=== PATIENT | female | born 1940 | race Caucasian/White ===

== ENCOUNTER → 2017-07-29 09:02 | Outpatient (CLI) | payer MEDICARE, SELFPAY ==
--- NOTE | 2017-08-04 10:36 | PM.PFT.1 ---
Pulmonary Function Test Referral & Results Date Patient Seen: 07/29/17 Requesting provider: Andria Miller Results: The spirometry demonstrates an FVC of 1.98 L which is 67% of predicted. The FEV1 was measured at 1.72 L which is 78% of predicted. The FEV1/FVC ratio was 87 which is 116% of predicted. Following the administration of bronchodilator there was 10% improvement in FEV1 and a 51% improvement in FEF 25-75%. Lung volumes show an SVC of 3.02 L which is 106% of predicted. No diffusing capacity was performed The maximum voluntary ventilation was reduced slightly. Interpretation: This study demonstrates mild obstructive lung disease with some limited evidence of benefit following the administration of bronchodilator particularly in small airway flows as demonstrated by the improvement in the FEF 25-75% number. Lung volumes are normal so no evidence of restrictive lung disease
== END ==
PROVIDERS: Family Provider Family Medicine; PCP Family Medicine; Visit Provider Family Medicine
DX: R06.02 Shortness of breath (principal)
CPT/HCPCS: 94010; 94060; 94726

== ENCOUNTER → 2017-10-21 10:22 | Outpatient (CLI) | payer MEDICARE, SELFPAY ==
[2017-10-21 12:19] LABS: TSH w/ Reflex to FT4 2.66 uIU/mL (0.47-4.68)
== END ==
PROVIDERS: PCP Family Medicine; Visit Provider Family Medicine
DX: R68.89 Other general symptoms and signs (principal)
CPT/HCPCS: 36415; 84443

== ENCOUNTER → 2018-01-11 09:34 | Outpatient (CLI) | payer MEDICARE, SELFPAY ==
--- NOTE | 2018-01-11 | DI.MG.S_ITS ---
BILATERAL DIGITAL SCREENING MAMMOGRAM 3D/2D WITH CAD: 01/11/2018 CLINICAL: Routine screening. Family history of breast cancer. Comparison is made to exams dated: 12/01/2016 mammogram, 11/19/2015 mammogram, and 11/13/2014 mammogram - [facility]. The tissue of both breasts is predominantly fatty. Current study was also evaluated with a Computer Aided Detection (CAD) system. No significant masses, calcifications, or other findings are seen in either breast. There has been no significant interval change. IMPRESSION: NEGATIVE There is no mammographic evidence of malignancy. A 1 year screening mammogram is recommended. This exam was interpreted at Station ID: [id number]. NOTE: For mammograms, a report in lay terms will be sent to the patient. Approximately 15% of breast malignancies will not be visualized mammographically. In the management of a palpable breast mass, a negative mammogram must not discourage biopsy of a clinically suspicious lesion. Electronically Signed By: Sirisha arce/nick:01/11/2018 13:31:52 letter sent: Normal Exam ACR BI-RADS Category 1: Negative 3341F
== END ==
PROVIDERS: PCP Family Medicine; Visit Provider Family Medicine
DX: Z12.31 Encounter for screening mammogram for malignant neoplasm of breast (principal); Z80.3 Family history of malignant neoplasm of breast
CPT/HCPCS: 77063; 77067

== ENCOUNTER → 2018-05-03 18:39 | Outpatient (REF) | payer MEDICARE, SELFPAY | LOC: LAB 18:39 | PROVIDERS: PCP Family Medicine; Visit Provider Dermatology | DX: L28.0 Lichen simplex chronicus (principal); B95.61 Methicillin susceptible Staphylococcus aureus infection as the cause of diseases classified elsewhere | CPT/HCPCS: 87070; 87075; 87205 ==

== ENCOUNTER → 2019-01-12 07:52 | Outpatient (CLI) | payer MEDICARE, SELFPAY ==
--- NOTE | 2019-01-12 | DI.MG.S_ITS ---
BILATERAL DIGITAL SCREENING MAMMOGRAM 3D/2D WITH CAD: 01/12/2019 CLINICAL: Routine screening. Family history of breast cancer. Comparison is made to exams dated: 01/11/2018 mammogram, 12/01/2016 mammogram, 11/19/2015 mammogram, 11/13/2014 mammogram, 10/01/2013 mammogram, and 09/28/2012 mammogram - [facility]. There are scattered fibroglandular elements in both breasts. Current study was also evaluated with a Computer Aided Detection (CAD) system. A linear scar marker overlies the superior right breast. No significant masses, calcifications, or other findings are seen in either breast. There has been no significant interval change. IMPRESSION: NEGATIVE There is no mammographic evidence of malignancy. A 1 year screening mammogram is recommended. This exam was interpreted at Station ID: [id number]. NOTE: For mammograms, a report in lay terms will be sent to the patient. Approximately 15% of breast malignancies will not be visualized mammographically. In the management of a palpable breast mass, a negative mammogram must not discourage biopsy of a clinically suspicious lesion. Electronically Signed By: Royal Buenrostro M.D. ecl/:01/14/2019 19:25:26 letter sent: Normal Exam ACR BI-RADS Category 1: Negative 3341F
== END ==
PROVIDERS: PCP Family Medicine; Visit Provider Family Medicine
DX: Z12.31 Encounter for screening mammogram for malignant neoplasm of breast (principal); Z80.3 Family history of malignant neoplasm of breast
CPT/HCPCS: 77063; 77067

== ENCOUNTER → 2019-10-26 08:31 | Outpatient (CLI) | payer MEDICARE, SELFPAY ==
[2019-10-26 10:14] LABS: Alanine Aminotransferase 15 IU/L (<35); Albumin 4.3 g/dL (3.5-5.0); Albumin Globulin Ratio 1.5 (1.0-2.8); Alkaline Phosphatase 68 U/L (38-126); Aspartate Aminotransferase 27 IU/L (14-36); BUN Creatinine Ratio 19.5 (6-22); Bilirubin Total 0.5 mg/dL (0.2-1.3); Blood Urea Nitrogen 23 mg/dL (7-17); Calcium 9.8 mg/dL (8.4-10.2); Carbon Dioxide 27 mmol/L (22-32); Chloride 103 mmol/L (98-107); Cholesterol 270 mg/dL (140-199); Estimated Glomerular Filt Rate 44.4 mL/min (>60); Globulin 2.8 g/dL (1.7-4.1); Glucose 91 mg/dL (80-110); HDL Cholesterol 66 mg/dL (40-60); HEMOLYSIS < 15 (0-50); LDL Cholesterol Calculated 171 mg/dL (<100); Sodium 137 mmol/L (137-145); Total Protein 7.1 g/dL (6.3-8.2); Triglycerides 167 mg/dL (35-150)
== END ==
PROVIDERS: PCP Family Medicine; Referring Provider Family Medicine; Visit Provider Family Medicine
DX: E66.3 Overweight (principal); E78.5 Hyperlipidemia, unspecified
CPT/HCPCS: 36415; 80053; 80061

== ENCOUNTER → 2019-11-28 09:34 | Outpatient (CLI) | payer MEDICARE, SELFPAY ==
[2019-11-28 11:03] LABS: Blood Urea Nitrogen 16 mg/dL (7-17); Calcium 9.5 mg/dL (8.4-10.2); Carbon Dioxide 29 mmol/L (22-32); Chloride 105 mmol/L (98-107); Estimated Glomerular Filt Rate 49.7 mL/min (>60); Glucose 83 mg/dL (80-110); HEMOLYSIS < 15 (0-50); Potassium 4.9 mmol/L (3.4-5.1); Sodium 140 mmol/L (137-145)
[2019-11-28 14:08] LABS: Creatinine Urine Random 137.8 mg/dL
[2019-11-28 14:13] LABS: Microalbumi Creatinin Ratio Ur 4.3 ug/mg CR (<30); Microalbumin Urine Random 0.6 mg/dL (0-1.6)
== END ==
PROVIDERS: PCP Family Medicine; Referring Provider Family Medicine; Visit Provider Family Medicine
DX: I10 Essential (primary) hypertension (principal)
CPT/HCPCS: 36415; 80048; 82043; 82570

== ENCOUNTER → 2020-01-10 10:39 | Outpatient (CLI) | payer MEDICARE, SELFPAY ==
[2020-01-10 12:56] LABS: BUN Creatinine Ratio 17.5 (6-22); Blood Urea Nitrogen 20 mg/dL (7-17); Calcium 9.6 mg/dL (8.4-10.2); Carbon Dioxide 34 mmol/L (22-32); Chloride 99 mmol/L (98-107); Estimated Glomerular Filt Rate 46.2 mL/min (>60); Glucose 92 mg/dL (80-110); HEMOLYSIS < 15 (0-50); Sodium 137 mmol/L (137-145)
[2020-01-10 13:02] LABS: High Sensitivity CRP - Cardiac 1.6 mg/L (1.0-3.0)
[2020-01-10 15:44] LABS: Creatinine Urine Random 22.3 mg/dL
[2020-01-10 16:03] LABS: Microalbumin Urine Random < 0.6 mg/dL (0-1.6)
== END ==
PROVIDERS: PCP Family Medicine; Referring Provider Family Medicine; Visit Provider Family Medicine
DX: E78.5 Hyperlipidemia, unspecified (principal); I10 Essential (primary) hypertension
CPT/HCPCS: 36415; 80048; 82043; 82570; 86140

== ENCOUNTER → 2020-01-16 10:22 | Outpatient (CLI) | payer MEDICARE, SELFPAY ==
--- NOTE | 2020-01-16 | DI.MG.S_ITS ---
BILATERAL DIGITAL SCREENING MAMMOGRAM 3D/2D WITH CAD: 01/16/2020 CLINICAL: Routine screening. Family history of breast cancer. Comparison is made to exams dated: 01/12/2019 mammogram, 01/11/2018 mammogram, 12/01/2016 mammogram, 11/19/2015 mammogram, and 11/13/2014 mammogram - [facility]. There are scattered fibroglandular elements in both breasts. Current study was also evaluated with a Computer Aided Detection (CAD) system. There is a benign focal asymmetry in the right breast. There also are benign post operative findings in the right breast. No significant masses, calcifications, or other findings are seen in either breast. There has been no significant interval change. IMPRESSION: BENIGN There is no mammographic evidence of malignancy. A 1 year screening mammogram is recommended. This exam was interpreted at Station ID: [id number]. NOTE: For mammograms, a report in lay terms will be sent to the patient. Approximately 15% of breast malignancies will not be visualized mammographically. In the management of a palpable breast mass, a negative mammogram must not discourage biopsy of a clinically suspicious lesion. Electronically Signed By: Ayad gentile/nick:01/16/2020 13:04:47 letter sent: Normal Exam ACR BI-RADS Category 2: Benign Finding(s) 3342F
--- NOTE | 2020-01-16 10:23 | DI.US.S_ITS ---
PROCEDURE: US RENAL COMPLETE INDICATIONS: KIDNEY DISEASE, NEW ONSET TECHNIQUE: Real-time scanning was performed of the kidneys and bladder, with image documentation. COMPARISON: None. FINDINGS: Kidneys: Kidneys are normal in size. Right kidney measures 8.0 cm long; left kidney measures 8.8 cm long. Right renal cortical thickness is 1.4 cm; left renal cortical thickness is 1.4 cm. Renal cortical echotexture is normal. No hydronephrosis or nephrolithiasis. No suspicious solid mass lesions. Bladder: Pre-void bladder volume is 46 mL. Post-void residual is 12 mL. Pre-void images demonstrate no intraluminal masses or stones. On pre-void images, bilateral ureteral jets are noted with color Doppler interrogation. (Of note, ureteral jets may not be detectable in up to 25% of cases due to insufficient differences in specific gravity between ureteral and bladder urine). Miscellaneous: No free pelvic fluid. IMPRESSION: No hydronephrosis or nephrolithiasis is found. Overall renal size is at the lower limits of normal but renal cortical thinning is not present. Underlying medical renal disease is the likely cause for reported renal insufficiency. Dictated by: Moises Fuentes M.D. on 01/16/2020 at 11:24 Approved by: Moises Fuentes M.D. on 01/16/2020 at 11:25
== END ==
PROVIDERS: PCP Family Medicine; Referring Provider Family Medicine; Visit Provider Family Medicine
DX: Z12.31 Encounter for screening mammogram for malignant neoplasm of breast (principal); Z80.3 Family history of malignant neoplasm of breast; I12.9 Hypertensive chronic kidney disease with stage 1 through stage 4 chronic kidney disease, or unspecified chronic kidney disease; N18.30 Chronic kidney disease, stage 3 unspecified
CPT/HCPCS: 76770; 77063; 77067

== ENCOUNTER → 2020-02-04 10:31 | Outpatient (CLI) | payer MEDICARE, SELFPAY ==
[2020-02-04 11:39] LABS: Blood Urea Nitrogen 15 mg/dL (7-17); Calcium 9.2 mg/dL (8.4-10.2); Carbon Dioxide 31 mmol/L (22-32); Chloride 103 mmol/L (98-107); Estimated Glomerular Filt Rate 57.7 mL/min (>60); Glucose 90 mg/dL (80-110); HEMOLYSIS < 15 (0-50); Potassium 4.4 mmol/L (3.4-5.1); Sodium 137 mmol/L (137-145)
[2020-02-04 12:08] LABS: Appearance Urine UA CLEAR; Bilirubin Urine UA NEGATIVE (NEGATIVE); Color Urine UA YELLOW; Glucose Urine UA NEGATIVE (Negative); Ketones Urine UA NEGATIVE (NEGATIVE); Leukocyte Esterase Urine UA TRACE (NEGATIVE); Nitrite Urine UA NEGATIVE (Negative); Occult Blood Urine UA 1+ (Negative); Protein Urine UA NEGATIVE (Negative); Specific Gravity Urine UA 1.015 (1.000-1.035); Urobilinogen Urine UA 0.2 E.U./dL (0.2)
[2020-02-04 13:13] LABS: Bacteria Urine Few (2-10); RBC Urine 0-1/HPF (0-5/HPF); Squamous Epithelial Cell Urine 1-5 /HPF (0-5/HPF); WBC Urine 1-5/HPF (0-5/HPF)
[2020-02-04 13:14] LABS: Culture Indicated Urine Specimen Cultured
== END ==
PROVIDERS: PCP Family Medicine; Referring Provider Family Medicine; Visit Provider Family Medicine
DX: I10 Essential (primary) hypertension (principal); N18.30 Chronic kidney disease, stage 3 unspecified
CPT/HCPCS: 36415; 80048; 81001; 87086

== ENCOUNTER → 2020-04-09 14:26 | Outpatient (CLI) | payer MEDICARE, SELFPAY ==
[2020-04-09 15:48] LABS: BUN Creatinine Ratio 18.1 (6-22); Blood Urea Nitrogen 19 mg/dL (7-17); Calcium 9.3 mg/dL (8.4-10.2); Carbon Dioxide 31 mmol/L (22-32); Chloride 100 mmol/L (98-107); Estimated Glomerular Filt Rate 50.7 mL/min (>60); Glucose 93 mg/dL (80-110); HEMOLYSIS < 15 (0-50); Potassium 4.6 mmol/L (3.4-5.1); Sodium 136 mmol/L (137-145)
== END ==
PROVIDERS: PCP Family Medicine; Referring Provider Family Medicine; Visit Provider Family Medicine
DX: I10 Essential (primary) hypertension (principal); N18.30 Chronic kidney disease, stage 3 unspecified
CPT/HCPCS: 36415; 80048

== ENCOUNTER → 2020-06-24 08:56 | Outpatient (CLI) | payer MEDICARE, SELFPAY ==
[2020-06-24 09:31] LABS: Add Manual Diff / Slide Review NO; Basophils Absolute Auto 0 /uL (0-100); Basophils Percent Auto 0.9 % (0-2); Eosinophils Absolute Auto 100 /uL (0-450); Eosinophils Percent Auto 1.8 % (2-4); Hemoglobin 12.3 g/dL (12.0-16.0); Lymphocytes Absolute Auto 1700 /uL (1100-4500); Lymphocytes Percent Auto 36.8 % (25-40); Mean Corpuscular HGB Conc 32.5 % (30-36); Mean Corpuscular Hemoglobin 31.3 PG (26-34); Mean Corpuscular Volume 96.4 fL (80-100); Monocytes Absolute Auto 500 /uL (0-900); Monocytes Percent Auto 10.7 % (3-14); Neutrophils Absolute Auto 2400 /uL (1500-7000); Neutrophils Percent Auto 49.8 % (50-75); Platelet Count 291 X10^3/uL (150-400); Red Blood Cell Count 3.94 X10^6/uL (4.0-5.2); Red Cell Distribution Width 13.2 % (11.6-14.8); White Blood Cell Count 4.7 X10^3/uL (4.5-11.0)
[2020-06-24 10:01] LABS: Alanine Aminotransferase 14 IU/L (<35); Albumin 3.9 g/dL (3.5-5.0); Albumin Globulin Ratio 1.6 (1.0-2.8); Alkaline Phosphatase 65 U/L (38-126); Aspartate Aminotransferase 25 IU/L (14-36); BUN Creatinine Ratio 18.4 (6-22); Bilirubin Total 0.2 mg/dL (0.2-1.3); Blood Urea Nitrogen 16 mg/dL (7-17); Calcium 9.4 mg/dL (8.4-10.2); Carbon Dioxide 29 mmol/L (22-32); Chloride 105 mmol/L (98-107); Cholesterol 261 mg/dL (140-199); Estimated Glomerular Filt Rate > 60.0 mL/min (>60); Globulin 2.5 g/dL (1.7-4.1); Glucose 97 mg/dL (80-110); HDL Cholesterol 64 mg/dL (40-60); HEMOLYSIS < 15 (0-50); LDL Cholesterol Calculated 170 mg/dL (<100); Potassium 4.1 mmol/L (3.4-5.1); Sodium 140 mmol/L (137-145); Total Protein 6.4 g/dL (6.3-8.2); Triglycerides 133 mg/dL (35-150)
[2020-06-24 16:10] LABS: Microalbumin Urine Random 0.8 mg/dL (0-1.6)
== END ==
PROVIDERS: PCP Physician Assistant; Referring Provider Physician Assistant; Visit Provider Physician Assistant
DX: E78.2 Mixed hyperlipidemia (principal); N18.31 Chronic kidney disease, stage 3a; K21.9 Gastro-esophageal reflux disease without esophagitis
CPT/HCPCS: 36415; 80053; 80061; 82043; 82570; 85025

== ENCOUNTER → 2020-08-21 18:42 | Outpatient (CLI) | payer MEDICARE, SELFPAY | PROVIDERS: PCP Physician Assistant; Visit Provider Physician Assistant | DX: R30.0 Dysuria (principal) | CPT/HCPCS: 87077; 87086; 87186 ==

== ENCOUNTER → 2021-05-12 10:06 | Outpatient (CLI) | payer MEDICARE, SELFPAY ==
--- NOTE | 2021-05-12 | DI.MG.S_ITS ---
BILATERAL DIGITAL SCREENING MAMMOGRAM 3D/2D WITH CAD: 05/12/2021 CLINICAL: Routine screening. Family history of breast cancer. Comparison is made to exams dated: 01/16/2020 mammogram, 01/12/2019 mammogram, 01/11/2018 mammogram, 12/01/2016 mammogram, and 11/19/2015 mammogram - [facility]. There are scattered fibroglandular elements in both breasts. Current study was also evaluated with a Computer Aided Detection (CAD) system. There is a benign focal asymmetry in the right breast. There also are benign post operative findings in the right breast. No significant masses, calcifications, or other findings are seen in either breast. There has been no significant interval change. IMPRESSION: BENIGN There is no mammographic evidence of malignancy. A 1 year screening mammogram is recommended. This exam was interpreted at Station ID: [id number]. NOTE: For mammograms, a report in lay terms will be sent to the patient. Approximately 15% of breast malignancies will not be visualized mammographically. In the management of a palpable breast mass, a negative mammogram must not discourage biopsy of a clinically suspicious lesion. Electronically Signed By: Ayad gentile/nick:05/12/2021 12:32:34 letter sent: Normal Exam ACR BI-RADS Category 2: Benign Finding(s) 3342F
== END ==
PROVIDERS: PCP Physician Assistant; Referring Provider Physician Assistant; Visit Provider Physician Assistant
DX: Z12.31 Encounter for screening mammogram for malignant neoplasm of breast (principal); Z80.3 Family history of malignant neoplasm of breast
CPT/HCPCS: 77063; 77067

== ENCOUNTER → 2021-08-11 14:06 | Outpatient (CLI) | payer MEDICARE, SELFPAY | PROVIDERS: PCP Physician Assistant; Referring Provider Physician Assistant; Visit Provider Physician Assistant | DX: Z78.0 Asymptomatic menopausal state (principal); Z13.820 Encounter for screening for osteoporosis | CPT/HCPCS: 77080 ==

== ENCOUNTER 2022-01-09 13:54 | Emergency (ER) | payer MEDICARE, SELFPAY ==
[2022-01-09] VITALS (8 sets, daily range): BP systolic 142–190; BP diastolic 67–84; PULSE 61–96; RESP 14–59; TEMP 36.9; O2SAT 83–100; BMI 29.2
--- NOTE | 2022-01-09 14:01 | DI.RAD.S_ITS ---
PROCEDURE: XR CHEST 1V INDICATIONS: chest pain TECHNIQUE: One view of the chest was acquired. COMPARISON: [facility], [facility], XR CHEST 1V, 07/16/2017, 12:55. [facility], [facility], CHEST 1 VIEW, 05/05/2016, 12:44. FINDINGS: Surgical changes and devices: None. Lungs and pleura: Lungs are clear. No pleural effusions or pneumothorax. Mediastinum: Mediastinal contours appear normal. Heart size is normal. Bones and chest wall: No suspicious bony lesions. Overlying soft tissues appear unremarkable. IMPRESSION: No acute cardiopulmonary abnormality. Dictated by: Ayad Mckeon M.D. on 01/09/2022 at 13:45 Approved by: Ayad Mckeon M.D. on 01/09/2022 at 13:45
[2022-01-09 14:20] LABS: Add Manual Diff / Slide Review NO; Basophils Absolute Auto 0 /uL (0-100); Basophils Percent Auto 0.8 % (0-2); Eosinophils Absolute Auto 100 /uL (0-450); Eosinophils Percent Auto 1.8 % (2-4); Hematocrit 40.9 % (36-46); Hemoglobin 13.8 g/dL (12.0-16.0); Lymphocytes Absolute Auto 1900 /uL (1100-4500); Lymphocytes Percent Auto 32.5 % (25-40); Mean Corpuscular HGB Conc 33.6 % (30-36); Mean Corpuscular Hemoglobin 31.9 PG (26-34); Mean Corpuscular Volume 94.9 fL (80-100); Monocytes Absolute Auto 500 /uL (0-900); Monocytes Percent Auto 9.3 % (3-14); Neutrophils Absolute Auto 3200 /uL (1500-7000); Neutrophils Percent Auto 55.6 % (50-75); Platelet Count 324 X10^3/uL (150-400); Red Blood Cell Count 4.31 X10^6/uL (4.0-5.2); Red Cell Distribution Width 13.4 % (11.6-14.8); White Blood Cell Count 5.8 X10^3/uL (4.5-11.0)
--- NOTE | 2022-01-09 14:23 | DI.CT.S_ITS ---
PROCEDURE: CT HEAD/BRAIN WO CON INDICATIONS: confusion, difficulty with speech, arm heaviness TECHNIQUE: Noncontrast 4.5 mm thick angled axial sections acquired from the foramen magnum to the vertex, with coronal and sagittal reformats. For radiation dose reduction, the following was used: automated exposure control, adjustment of mA and/or kV according to patient size. COMPARISON: [facility], CT, HEAD WITHOUT CONTRAST, 04/29/2013, 0:05. FINDINGS: Image quality: Excellent. CSF spaces: Basal cisterns are patent. No extra-axial fluid collections. Ventricles are normal in size and shape. Brain: No midline shift. No intracranial masses or hemorrhage. Basal ganglia calcifications. No area of hypodensity in a large vascular distribution to suggest acute infarction. Periventricular hypodensity consistent with chronic microvascular ischemic change. Age-related parenchymal loss. Skull and face: Calvarium and visualized facial bones are intact, without suspicious lesions. Sinuses: Visualized sinuses and mastoids are clear. IMPRESSION: No acute intracranial abnormality. Dictated by: Ayad Mckeon M.D. on 01/09/2022 at 14:13 Approved by: Ayad Mckeon M.D. on 01/09/2022 at 14:16
--- NOTE | 2022-01-09 14:23 | ED.CHESTPAIN ---
HPI - Chest Pain General Chief Complaint: Chest Pain Stated Complaint: dull pain lt arm heaviness in chest Time Seen by Provider: 01/09/22 14:04 Source: patient Mode of arrival: Ambulatory Limitations: no limitations History of Present Illness HPI narrative: 81-year-old female former smoker with history of chronic kidney disease, hypertension, Maki's esophagitis presents with a chief complaint of left-sided chest pressure and dull pain in her arm for the past few days. She is not dizzy nor weak or lightheaded. She denies any shortness of breath or cough. She has no nausea, vomiting or diarrhea. She denies any abdominal pain. She states that she was just resting when she noticed the discomfort come on slowly and states that at its maximum it was about a 1/10 and currently a 0.5. She denies any unexplained fatigue or exercise intolerance. She is had no recent travel, history of blood clot or cancer. She denies any obvious provocation, palliation. She gets migraines and states that she had a headache a few days ago and was having difficulty finding words and had some blurred vision. She would spoken with her primary care provider and has an outpatient CT ordered. These symptoms have been gone for multiple days Related Data Home Medications Medication Instructions Recorded Confirmed CYANOCOBALAMIN (VITAMIN B-12) 1,000 mcg PO QDAY ##0 03/16/11 08/14/21 (Vitamin B-12) [CO Q 10] ##0 05/05/16 08/14/21 [FISH OIL] ##0 05/05/16 08/14/21 Previous Rx's Medication Instructions Recorded albuterol sulfate 90 mcg/actuation 2 inhalation inhalation Q4H PRN 10/24/19 aerosol inhaler shortness of breath #1 device lisinopril 20 mg tablet 20 mg PO DAILY #20 tabs 01/09/22 Allergies Allergy/AdvReac Type Severity Reaction Status Date / Time omeprazole [OMEPRAZOLE] Allergy Severe chest pain Verified 01/09/22 14:05 diclofenac [DICLOFENAC] Allergy Mild chest pain Verified 01/09/22 14:05 metoprolol [METOPROLOL] AdvReac Mild mentally Verified 01/09/22 14:05 disconnected niacin [NIACIN] AdvReac Mild headache Verified 01/09/22 14:05 NSAIDS (Non-Steroidal AdvReac Mild sensitivity Verified 01/09/22 14:05 Anti-Inflamma [NSAIDS (NON-STEROIDAL ANTI-INFLAMMA] pravastatin [PRAVASTATIN] AdvReac Mild leg Verified 01/09/22 14:05 pain/hematuria ranitidine [RANITIDINE] AdvReac Mild mental Verified 01/09/22 14:05 issues Review of Systems Review of Systems Narrative: GENERAL: Denies chills, fatigue, malaise, fever, sweats. HEENT: Denies sinus pain, ear pain, sore throat, difficulty swallowing, dizziness. RESPIRATORY: Denies dyspnea, cough, wheezing, hemoptysis, sputum. CARDIOVASCULAR: See HPI GASTROINTESTINAL: Denies nausea, vomiting, abdominal pain, diarrhea, constipation, melena. : Denies dysuria, frequency, incontinence, hematuria, urinary retention. MUSCULOSKELETAL: denies weakness, joint pain, or bony pain SKIN: Denies rash, skin lesions, or other NEUROLOGIC: See HPI PSYCHIATRIC: No concerning psychosocial issues. 12 point review of systems is negative except for those stated above Patient History Medical History Actinic keratosis (~2006) Anxiety Asymptomatic microscopic hematuria Maki's esophagus (~2004) Blocked tear duct Cataract (~2013) Chickenpox (~1946) Cold sensitivity Degenerative cervical disc History of anemia (~2010) Hx of migraines (~2012) Hyperlipidemia Leg pain Measles (~1946) Microscopic hematuria Mumps (~1946) Muscle tightness Reactive airway disease Right hip flexor tightness (~2014) Smoker Vision abnormalities Vitreous detachment, bilateral Surgical History Anesthesia History of cataract removal with insertion of prosthetic lens (~2013) History of cystoscopy History of endoscopy History of facelift History of thumb surgery (~2009) Status post tubal ligation (~1984) Family History Brother Diabetes mellitus High cholesterol Father Diabetes mellitus High cholesterol Grandfather Heart disease Grandmother Cancer Mother Diabetes mellitus Mental health problem History of breast cancer Social History Smoking Status: Former smoker Tobacco: How many years used: 38 Smoking Status: Former smoker alcohol intake frequency: 0-2 drinks per day Substance Use Type: does not use Exam Narrative Exam Narrative: GENERAL: [81] year old patient appears stated age. Well-developed patient, in mild distress. HEAD: Atraumatic. Normocephalic. EYES: Pupils equal round and reactive. Extraocular motions intact. No scleral icterus. No injection or drainage. ENT: Nose without bleeding, purulent drainage. Throat without erythema, tonsillar hypertrophy or exudate. Airway patent. NECK: Trachea midline. Non tender CARDIOVASCULAR: Regular rate and rhythm without murmurs, gallops, or rubs. RESPIRATORY: Clear to auscultation. Breath sounds equal bilaterally. No wheezes, rales, or rhonchi. GASTROINTESTINAL: Abdomen soft, non-tender, nondistended. EXTREMITIES: No edema or joint tenderness. BACK: Nontender without deformity or crepitance. No flank tenderness. NEURO: AOx3. SKIN: No rash or erythema of visible areas NIH Stroke Scale 1a. LOC: Patient is alert and keenly responsive (0) 1b. LOC Questions: Patient answers both LOC questions accurately (0) 1c. LOC Commands: Patient performs both tasks correctly (0) 2. Best Gaze: Normal (0) 3. Visual: No visual loss (0) 4. Facial palsy: Normal symmetrical movements (0) 5. Motor arm: No drift (0) 6. Motor leg: No drift (0) 7. Limb ataxia: Absent (0) 8. Sensory: Normal (0) 9. Best language: No aphasia; normal (0) 10. Dysarthria: Normal (0) 11. Extinction and inattention: No abnormality (0) NIHSS: 0 Initial Vital Signs Initial Vital Signs: Vital Signs Temperature 98.5 F 01/09/22 14:00 Pulse Rate 96 H 01/09/22 14:00 Respiratory Rate 17 01/09/22 14:00 Blood Pressure 190/84 H 01/09/22 14:00 Pulse Oximetry 97 01/09/22 14:00 Oxygen Delivery Method 01/09/22 14:00 Scores HEART Score Heart Score history: Slightly Suspicious Heart Score EKG: Normal Heart Score Age: > or = 65 years old Heart Score risk factors: No known risk factors Heart Score troponin: < or = to normal limit Heart Score Total: 2 Course Orders Ordered: ED Orders 01/09/22 14:01 XR chest 1V Stat 01/09/22 14:08 Complete Blood Count AUTO DIFF Stat Comprehensive Metabolic Panel Stat Lipase Stat Magnesium Stat NT-proBNP (BNP-Adult 18+) Stat Troponin & CK Cardiac Panel Stat 01/09/22 14:12 EKG-12 Lead Stat 01/09/22 14:15 COVID19 -Nasal RAPID/Pre-Proc Stat 01/09/22 14:23 CT head/brain wo con Stat Discontinued Medications Sodium Chloride (Normal Saline 0.9%) 500 mls @ 1,000 mls/hr IV BOLUS ONE Stop: 01/09/22 14:33 Vital Signs Vital signs: Vital Signs - 8 hr 01/09/22 14:00 01/09/22 14:00 01/09/22 14:01 Temperature 98.5 F Pulse Rate 96 H 95 H Respiratory Rate 17 Blood Pressure 190/84 H 190/84 H Pulse Oximetry 97 98 Oxygen Delivery Method Room Air 01/09/22 14:01 01/09/22 14:30 01/09/22 15:00 Temperature Pulse Rate 92 H 71 71 Respiratory Rate 18 36 H 14 Blood Pressure Pulse Oximetry 99 99 99 Oxygen Delivery Method 01/09/22 15:33 01/09/22 15:38 01/09/22 15:38 Temperature Pulse Rate 61 78 Respiratory Rate 20 22 Blood Pressure 147/71 H Pulse Oximetry 83 L 100 Oxygen Delivery Method MDM - Chest Pain Lab Data Result diagrams: 01/09/22 14:08 01/09/22 14:08 Labs: Lab Results 01/09/22 01/09/22 01/09/22 Range/Units 14:08 14:08 14:15 WBC 5.8 (4.5-11.0) X10^3/uL RBC 4.31 (4.0-5.2) X10^6/uL Hgb 13.8 (12.0-16.0) g/dL Hct 40.9 (36-46) % MCV 94.9 (80-100) fL MCH 31.9 (26-34) PG MCHC 33.6 (30-36) % RDW 13.4 (11.6-14.8) % Plt Count 324 (150-400) X10^3/uL Neut % (Auto) 55.6 (50-75) % Lymph % (Auto) 32.5 (25-40) % [place] % (Auto) 9.3 (3-14) % Eos % (Auto) 1.8 L (2-4) % Baso % (Auto) 0.8 (0-2) % Neut # (Auto) 3200 (6632-6144) /uL Lymph # (Auto) 1900 (5972-1743) /uL [place] # (Auto) 500 (0-900) /uL Eos # (Auto) 100 (0-450) /uL Baso # (Auto) 0 (0-100) /uL Sodium 139 (137-145) mmol/L Potassium 4.4 (3.4-5.1) mmol/L Chloride 105 (98-107) mmol/L Carbon Dioxide 25 (22-32) mmol/L BUN 14 (7-17) mg/dL Creatinine 1.04 (0.52-1.04) mg/dL Estimated GFR 55 L (>60) mL/min BUN/Creatinine Ratio 13.5 (6-22) Glucose 87 (80-110) mg/dL Calcium 9.3 (8.4-10.2) mg/dL Magnesium 2.1 (1.6-2.3) mg/dL Total Bilirubin 0.3 (0.2-1.3) mg/dL AST 27 (14-36) IU/L ALT 20 (<35) IU/L Alkaline Phosphatase 75 (38-126) U/L Total Creatine Kinase 117 (30-135) U/L CK-MB (CK-2) 1.84 (<2.37) ng/mL CK-MB (CK-2) Rel Index 1.6 (1.5-5.0) % Troponin I < 0.012 (0.01-0.034) ng/mL NT-Pro-B Natriuret Pep 227 (<450) pg/mL Total Protein 7.5 (6.3-8.2) g/dL Albumin 4.3 (3.5-5.0) g/dL Globulin 3.2 (1.7-4.1) g/dL Albumin/Globulin Ratio 1.3 (1.0-2.8) Lipase 127 (23-300) U/L SARS-CoV-2 (PCR) Negative (Negative) ECG Data Interpretation: 1551 EKG is normal sinus rhythm rate [68 ] and free of any signs of ischemia or ectopy. No ST segmental elevation or depression. No T wave inversions MDM Narrative Medical decision making narrative: Patient with very reassuring history and physical exam. She has some pressure when blood pressure was in the 190s and symptoms completely resolved as blood pressure approach the 140s. She remained in the 140s for the duration of her visit. She states that she is normally in about the 118s. Heart score low. Patient ambulatory in the department and asymptomatic. Return precautions discussed and questions answered to her apparent satisfaction Discharge Plan Departure Patient Disposition: Home Clinical Impression: Atypical chest pain, Hypertension Instructions: High Blood Pressure, DI for Atypical Chest Pain Activity Restrictions/Additional Instructions: *You have been diagnosed with [atypical chest pain. As we discussed your history and physical exam are reassuring and labs, EKG and imaging would suggest against heart attack. Your symptoms seemed to be linkied to elevated blood pressure. ] *What to do: *Please continue to take your regular medications as directed. [ x] New medication prescriptions sent to your pharmacy: [ [facility]] [ ] New medication written as a paper prescription [ ] No new medications given *Please follow up with your primary care provider in 2-3 days, call for an appointment. Let them know you were seen in the Emergency Department and that we ask that you be seen in follow up. We will electronically transmit a record of today's note if your PCP is in our system *Return to Emergency Department if you should have any new, worsening or concerning symptoms, such as [fever greater than 101 F, shaking chills, worsening pain, persistent vomiting or other bothersome symptoms] Prescriptions: New lisinopril 20 mg tablet 20 mg PO DAILY Qty: 20 0RF No Action CYANOCOBALAMIN (VITAMIN B-12) (Vitamin B-12) 1,000 mcg PO QDAY Qty: 0 [CO Q 10] Qty: 0 [FISH OIL] Qty: 0 albuterol sulfate 90 mcg/actuation HFA aerosol inhaler 2 inhalation INHALATION Q4H PRN (Reason: shortness of breath) Qty: 1 0RF Rx Instructions: administer with spacer Referrals: Zoila Weir PA-C [Primary Care Provider] -
[2022-01-09 14:45] LABS: Alanine Aminotransferase 20 IU/L (<35); Albumin 4.3 g/dL (3.5-5.0); Albumin Globulin Ratio 1.3 (1.0-2.8); Alkaline Phosphatase 75 U/L (38-126); Aspartate Aminotransferase 27 IU/L (14-36); BUN Creatinine Ratio 13.5 (6-22); Bilirubin Total 0.3 mg/dL (0.2-1.3); Blood Urea Nitrogen 14 mg/dL (7-17); Calcium 9.3 mg/dL (8.4-10.2); Carbon Dioxide 25 mmol/L (22-32); Chloride 105 mmol/L (98-107); Creatine Kinase 117 U/L (30-135); Estimated Glomerular Filt Rate 55 mL/min (>60); Globulin 3.2 g/dL (1.7-4.1); Glucose 87 mg/dL (80-110); HEMOLYSIS < 15 (0-50); Lipase 127 U/L (23-300); Magnesium 2.1 mg/dL (1.6-2.3); Potassium 4.4 mmol/L (3.4-5.1); Sodium 139 mmol/L (137-145); Total Protein 7.5 g/dL (6.3-8.2)
[2022-01-09 14:48] LABS: COVID19 -Nasal RAPID Negative (Negative)
[2022-01-09 14:56] LABS: NT-proBNP (BNP-Adult 18+) 227 pg/mL (<450); Troponin I < 0.012 ng/mL (0.01-0.034)
[2022-01-09 15:00] LABS: CKMB % Relative Index 1.6 % (1.5-5.0); Creatine Kinase MB 1.84 ng/mL (<2.37)
== END 2022-01-09 16:03 | disposition home or self-care (01) ==
PROVIDERS: Emergency Provider Emergency Medicine; PCP Physician Assistant
DX: R07.89 Other chest pain (principal); I10 Essential (primary) hypertension; Z20.822 Contact with and (suspected) exposure to COVID-19; R51.9 Headache, unspecified; H53.8 Other visual disturbances
CPT/HCPCS: 36415; 70450; 71045; 80053; 82550; 82553; 83690; 83735; 83880; 84484; 85025; 87635; 93005; 99283; 99284; C9803

== ENCOUNTER → 2022-05-13 10:40 | Outpatient (CLI) | payer MEDICARE, SELFPAY ==
--- NOTE | 2022-05-13 | DI.MG.S_ITS ---
BILATERAL DIGITAL SCREENING MAMMOGRAM 3D/2D WITH CAD: 05/13/2022 CLINICAL: Routine screening. Family history of breast cancer. Comparison is made to exams dated: 05/12/2021 mammogram, 01/16/2020 mammogram, and 01/12/2019 mammogram - [facility]. There are scattered areas of fibroglandular density in both breasts (category b / 25%-50% glandular tissue). Current study was also evaluated with a Computer Aided Detection (CAD) system. There is a benign focal asymmetry in the right breast. There also are benign post operative findings in the right breast. No significant masses, calcifications, or other findings are seen in either breast. There has been no significant interval change. IMPRESSION: BENIGN There is no mammographic evidence of malignancy. A 1 year screening mammogram is recommended. Based on the Tyrer Cuzick model (a risk assessment model) the patient's lifetime risk is 3.0% and her 10 year risk is 0.0%. According to the ACR, ACS, and NCCN guidelines, an annual breast MRI exam along with mammogram is recommended if the patient's lifetime risk is 20% or greater. This exam was interpreted at Station ID: [id number]. NOTE: For mammograms, a report in lay terms will be sent to the patient. Approximately 15% of breast malignancies will not be visualized mammographically. In the management of a palpable breast mass, a negative mammogram must not discourage biopsy of a clinically suspicious lesion. Electronically Signed By: David Carrillo M.D., jr/nick:05/13/2022 15:30:51 letter sent: Normal Exam ACR BI-RADS Category 2: Benign Finding(s) 3342F
== END ==
PROVIDERS: PCP Physician Assistant; Referring Provider Physician Assistant; Visit Provider Physician Assistant
DX: Z12.31 Encounter for screening mammogram for malignant neoplasm of breast (principal)
CPT/HCPCS: 77063; 77067

== ENCOUNTER 2022-09-30 22:26 | Emergency (ER) | payer MEDICARE, SELFPAY ==
[2022-09-30 22:30] VITALS: BP 145/66; PULSE 88; RESP 18; TEMP 36.3; O2SAT 96; BMI 30.2
[2022-09-30 22:35] VITALS: PULSE 92; RESP 20; O2SAT 96
[2022-09-30 22:36] VITALS: BP 145/66; PULSE 91; RESP 22; O2SAT 95
--- NOTE | 2022-09-30 22:47 | DI.CT.S_ITS ---
PROCEDURE: CT HEAD/BRAIN WO CON INDICATIONS: R eye vision changes TECHNIQUE: Noncontrast 4.5 mm thick angled axial sections acquired from the foramen magnum to the vertex, with coronal and sagittal reformats. For radiation dose reduction, the following was used: automated exposure control, adjustment of mA and/or kV according to patient size. COMPARISON: [facility], CT, CT HEAD/BRAIN WO CON, 01/09/2022, 14:28. FINDINGS: Image quality: Excellent. CSF spaces: Basal cisterns are patent. No extra-axial fluid collections. There is mild cerebral volume loss, with resultant ventricular and sulcal prominence. Brain: No intracranial hemorrhage, mass, or mass effect. There are subcortical, periventricular and deep white matter hypodensities consistent with mild chronic small vessel ischemic changes. The glaser-white matter junction appears preserved. There is intracranial internal carotid artery atherosclerosis. Skull and face: Calvarium and visualized facial bones appear intact, without suspicious lesions. Orbits appear within normal limits. Sinuses: Visualized sinuses and mastoids are clear. IMPRESSION: 1. No acute intracranial abnormality. Dictated by: Jermaine Joseph M.D. on 09/30/2022 at 23:27 Approved by: Jermaine Joseph M.D. on 09/30/2022 at 23:40
[2022-09-30 23:00] VITALS: BP 135/63; PULSE 85; RESP 15; O2SAT 95
[2022-09-30 23:30] VITALS: BP 136/65; PULSE 82; RESP 15; O2SAT 96
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
[2022-10-01 00:02] VITALS: O2SAT 96
[2022-10-01 00:04] VITALS: BP 153/72; PULSE 88; O2SAT 97
[2022-10-01] MEDS: PROPARACAINE 0.5% OPHTH SOL 1 DROPS EYE-BOTH (00:18)
== END 2022-10-01 00:37 | disposition home or self-care (01) ==
PROVIDERS: Emergency Provider Emergency Medicine; PCP Physician Assistant
DX: H43.391 Other vitreous opacities, right eye (principal)
CPT/HCPCS: 70450; 99284

== ENCOUNTER → 2022-10-09 11:15 | Outpatient (CLI) | payer MEDICARE, SELFPAY ==
--- NOTE | 2022-10-09 | DI.MRI.S_ITS ---
PROCEDURE: MR LUMBAR SPINE WO CON INDICATIONS: Radiculopathy, lumbar region TECHNIQUE: Noncontrast sagittal T1 spin echo and T2 fast echo, sagittal STIR, and T2 fast spin echo through the lumbar spine. In cases with scoliosis, additional coronal T2 fast spin echo may be performed. COMPARISON: [facility] [place], [place], XR LUMBAR SPINE WITH OLBIQUES PLUS FLEXION EXTENSION, 10/02/2020, 10:16. FINDINGS: Image quality: Excellent. 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 3 mm retrolisthesis of T12 on L1. 3 mm retrolisthesis of L1 on L2. 4 mm anterolisthesis of L4 on L5. Trace anterolisthesis of L5 on S1. Bone Marrow: Marrow is of normal overall signal. No acute vertebral body compression fractures. Spinal Cord: Conus medullaris terminates at the L1 level. Visualized cord demonstrates normal signal and size. Paraspinous Soft Tissues: No paravertebral masses. T11-T12: Normal appearance T12-L1: Severe chronic disc height loss. Retrolisthesis of T12 on L1. Facet and ligament hypertrophy. No significant canal stenosis. Mild bilateral foraminal stenosis. L1-L2: Severe disc height loss. Retrolisthesis of L1 on L2. Associated disc bulge. Facet and ligament hypertrophy. No significant canal stenosis. L2-L3: Moderate disc height loss. Disc bulge. Facet and ligament hypertrophy. Mild canal stenosis. Moderate right foraminal narrowing with mild flattening deformity on the right L2 nerve root. Mild to moderate left foraminal narrowing. L3-L4: Disc bulge. Facet and ligament hypertrophy. Moderate canal stenosis. [id number] bilateral foraminal narrowing. L4-L5: Prominent facet hypertrophy. Disc bulge. Mild anterolisthesis of L4 on L5. [id number] canal stenosis. Mild bilateral foraminal stenosis. L5-S1: Disc bulge. Prominent facet hypertrophy. Moderate canal stenosis. Moderate right foraminal narrowing with mild flattening deformity on the exiting right L5 nerve root. Mild to moderate left foraminal narrowing. IMPRESSION: 1. Multilevel underlying facet arthropathy. 2. Canal stenosis is mild at L2-L3, moderate at L3-L4, [id number] at L4-L5, and moderate at L5-S1. 3. Multilevel foraminal narrowing as described above. Dictated by: Johan Little M.D. on 10/11/2022 at 9:23 Approved by: Johan Little M.D. on 10/11/2022 at 10:14
== END ==
PROVIDERS: PCP Physician Assistant; Referring Provider Physical Medicine & Rehabilitation; Visit Provider Physical Medicine & Rehabilitation
DX: M47.26 Other spondylosis with radiculopathy, lumbar region (principal); M47.27 Other spondylosis with radiculopathy, lumbosacral region; M48.061 Spinal stenosis, lumbar region without neurogenic claudication; M48.07 Spinal stenosis, lumbosacral region
CPT/HCPCS: 72148

== ENCOUNTER → 2022-11-04 11:39 | Outpatient (CLI) | payer MEDICARE, SELFPAY | PROVIDERS: PCP Physician Assistant; Visit Provider Nurse Practitioner Family | DX: N89.8 Other specified noninflammatory disorders of vagina (principal) | CPT/HCPCS: 87086; 87210 ==

== ENCOUNTER → 2023-01-31 11:36 | Outpatient (CLI) | payer MEDICARE, SELFPAY ==
[2023-01-31 13:11] LABS: Add Manual Diff / Slide Review NO; Basophils Absolute Auto 0 /uL (0-100); Basophils Percent Auto 0.8 % (0-2); Eosinophils Absolute Auto 100 /uL (0-450); Eosinophils Percent Auto 1.7 % (2-4); Hematocrit 40.2 % (36-46); Hemoglobin 13.4 g/dL (12.0-16.0); Lymphocytes Absolute Auto 1600 /uL (1100-4500); Lymphocytes Percent Auto 32.4 % (25-40); Mean Corpuscular HGB Conc 33.4 % (30-36); Mean Corpuscular Hemoglobin 31.8 PG (26-34); Mean Corpuscular Volume 95.2 fL (80-100); Monocytes Absolute Auto 500 /uL (0-900); Monocytes Percent Auto 10.1 % (3-14); Neutrophils Absolute Auto 2600 /uL (1500-7000); Platelet Count 305 X10^3/uL (150-400); Red Blood Cell Count 4.23 X10^6/uL (4.0-5.2); Red Cell Distribution Width 13.7 % (11.6-14.8); White Blood Cell Count 4.8 X10^3/uL (4.5-11.0)
[2023-01-31 13:27] LABS: Alanine Aminotransferase 17 IU/L (<35); Albumin Globulin Ratio 1.5 (1.0-2.8); Alkaline Phosphatase 61 U/L (38-126); Aspartate Aminotransferase 25 IU/L (14-36); BUN Creatinine Ratio 15.4 (6-22); Bilirubin Total 0.5 mg/dL (0.2-1.3); Blood Urea Nitrogen 16 mg/dL (7-17); Calcium 10.1 mg/dL (8.4-10.2); Carbon Dioxide 30 mmol/L (22-32); Chloride 104 mmol/L (98-107); Estimated Glomerular Filt Rate 54 mL/min (>60); Globulin 2.6 g/dL (1.7-4.1); Glucose 86 mg/dL (80-110); HEMOLYSIS < 15 (0-50); Sodium 138 mmol/L (137-145); Total Protein 6.6 g/dL (6.3-8.2); Uric Acid 7.1 mg/dL (2.5-6.2)
[2023-01-31 13:31] LABS: High Sensitivity CRP - Cardiac 2.4 mg/L (1.0-3.0)
[2023-01-31 13:40] LABS: Erythrocyte Sedimentation Rate 8 MM/HR (0-20)
[2023-01-31 13:43] LABS: Rheumatoid Factor < 8.6 IU/mL (<12.0)
[2023-02-01 18:18] LABS: SS A Ro Sjogrens Antibody < 0.2 AI (0.0-0.9); SS B La Sjogrens Antibody < 0.2 AI (0.0-0.9)
[2023-02-06 16:59] LABS: ANA Screen, IFA Negative (.)
== END ==
PROVIDERS: PCP Physician Assistant; Referring Provider Ophthalmology; Visit Provider Ophthalmology
DX: M35.00 Sjogren syndrome, unspecified (principal)
CPT/HCPCS: 36415; 80053; 84443; 84550; 85025; 85651; 86038; 86140; 86235; 86430

== ENCOUNTER → 2023-05-21 10:18 | Outpatient (CLI) | payer MEDICARE, SELFPAY ==
--- NOTE | 2023-05-21 10:20 | DI.MG.S_ITS ---
BILATERAL DIGITAL SCREENING MAMMOGRAM 3D/2D WITH CAD: 05/21/2023 CLINICAL: Routine screening. Family history of breast cancer. Comparison is made to exams dated: 05/13/2022 mammogram, 05/12/2021 mammogram, and 01/16/2020 mammogram - [facility]. There are scattered areas of fibroglandular density in both breasts (category b / 25%-50% glandular tissue). Current study was also evaluated with a Computer Aided Detection (CAD) system. There is a benign focal asymmetry in the right breast. There also are benign post operative findings in the right breast. No significant masses, calcifications, or other findings are seen in either breast. There has been no significant interval change. IMPRESSION: BENIGN There is no mammographic evidence of malignancy. A 1 year screening mammogram is recommended. Based on the Tyrer Cuzick model (a risk assessment model) the patient's lifetime risk is 1.4% and her 10 year risk is 0.0%. According to the ACR, ACS, and NCCN guidelines, an annual breast MRI exam along with mammogram is recommended if the patient's lifetime risk is 20% or greater. This exam was interpreted at Station ID: [id number]. NOTE: For mammograms, a report in lay terms will be sent to the patient. Approximately 15% of breast malignancies will not be visualized mammographically. In the management of a palpable breast mass, a negative mammogram must not discourage biopsy of a clinically suspicious lesion. Electronically Signed By: Sirisha arce/nick:05/23/2023 12:23:34 letter sent: Normal Exam ACR BI-RADS Category 2: Benign Finding(s) [id number]
== END ==
PROVIDERS: PCP Physician Assistant; Referring Provider Physician Assistant; Visit Provider Physician Assistant
DX: Z12.31 Encounter for screening mammogram for malignant neoplasm of breast (principal); Z80.3 Family history of malignant neoplasm of breast; R92.323 Mammographic fibroglandular density, bilateral breasts
CPT/HCPCS: 77063; 77067

== ENCOUNTER 2023-06-25 19:12 | Emergency (ER) | payer MEDICARE, SELFPAY ==
[2023-06-25 19:15] VITALS: BP 192/85; PULSE 72; RESP 16; TEMP 36.3; O2SAT 100; BMI 30.2
--- NOTE | 2023-06-25 19:17 | ED.ABDPAIN ---
HPI - Abdominal Pain General Chief Complaint: Abdominal Pain Stated Complaint: Epigastric rib pain Time Seen by Provider: 06/25/23 19:13 History of Present Illness HPI narrative: 83-year-old female presents by EMS from home for bilateral pain in her upper abdomen that wraps around her ribs. Patient had finished eating dinner when her pain began and increase in severity. She states she has had intermittent pain like this in the past that has been able to be improved with Tums and sodium bicarbonate and water, however this time her pain only increased and so she called EMS for evaluation. Related Data Home Medications Medication Instructions Recorded Confirmed CYANOCOBALAMIN (VITAMIN B-12) 1,000 mcg PO QDAY ##0 03/16/11 11/04/22 (Vitamin B-12) [CO Q 10] ##0 05/05/16 11/04/22 [FISH OIL] ##0 05/05/16 11/04/22 Previous Rx's Medication Instructions Recorded albuterol sulfate 90 mcg/actuation 2 inhalation inhalation Q4H PRN 10/24/19 aerosol inhaler shortness of breath #1 device lisinopril 20 mg tablet 20 mg PO DAILY #20 tabs 01/09/22 Allergies Allergy/AdvReac Type Severity Reaction Status Date / Time omeprazole [OMEPRAZOLE] Allergy Severe chest pain Verified 11/04/22 11:36 diclofenac [DICLOFENAC] Allergy Mild chest pain Verified 11/04/22 11:36 metoprolol [METOPROLOL] AdvReac Mild mentally Verified 11/04/22 11:36 disconnected niacin [NIACIN] AdvReac Mild headache Verified 11/04/22 11:36 NSAIDS (Non-Steroidal AdvReac Mild sensitivity Verified 11/04/22 11:36 Anti-Inflamma [NSAIDS (NON-STEROIDAL ANTI-INFLAMMA] pravastatin [PRAVASTATIN] AdvReac Mild leg Verified 11/04/22 11:36 pain/hematuria ranitidine [RANITIDINE] AdvReac Mild mental Verified 11/04/22 11:36 issues Review of Systems Review of Systems Narrative: See HPI Patient History Medical History Smoker Vision abnormalities Muscle tightness Leg pain Right hip flexor tightness (~2014) Actinic keratosis (~2006) Chickenpox (~1946) Measles (~1946) Mumps (~1946) Vitreous detachment, bilateral Cataract (~2013) Microscopic hematuria Cold sensitivity Hyperlipidemia Blocked tear duct Maki's esophagus (~2004) Hx of migraines (~2012) History of anemia (~2010) Reactive airway disease Anxiety Asymptomatic microscopic hematuria Degenerative cervical disc Surgical History Anesthesia History of thumb surgery (~2009) History of endoscopy History of facelift History of cataract removal with insertion of prosthetic lens (~2013) History of cystoscopy Status post tubal ligation (~1984) Family History Brother Diabetes mellitus High cholesterol Father Diabetes mellitus High cholesterol Grandfather Heart disease Grandmother Cancer Mother Diabetes mellitus Mental health problem History of breast cancer Social History Smoking Status: Former smoker Tobacco: How many years used: 38 Smoking Status: Former smoker alcohol intake frequency: 0-2 drinks per day Substance Use Type: does not use Exam Initial Vital Signs Initial Vital Signs: Vital Signs Temperature 97.3 F L 06/25/23 19:15 Pulse Rate 72 06/25/23 19:15 Respiratory Rate 16 06/25/23 19:15 Blood Pressure 192/85 H 06/25/23 19:15 Pulse Oximetry 100 06/25/23 19:15 Oxygen Delivery Method Room Air 06/25/23 19:15 Const: Awake, alert, uncomfortable, in pain Cardiac: regular rate, regular rhythm RESP: unlabored, clear bilaterally, no wheezing GI: Soft, no reproducible tenderness to light or deep palpation Skin: Warm, Dry, intact, no rashes Neuro: AO x3, CN II-XII grossly intact, moves all extremities Course Orders Ordered: Discontinued Medications Al Hydrox/Mg Hydrox/Simethicone (Mag Hydrox/Alum/Simeth 30 Ml Udc) 30 ml PO NOW ONE Stop: 06/25/23 19:23 Last Admin: 06/25/23 19:38 Dose: 30 ml Documented By: KALEIGH Sodium Chloride (Normal Saline 0.9%) 1,000 mls @ 1,000 mls/hr IV BOLUS ONE Stop: 06/25/23 20:15 Last Infusion: 06/25/23 22:07 Dose: Infused Documented By: Admin: 06/25/23 20:50 Dose: 1,000 mls/hr Documented By: STEPHIE Lidocaine HCl (Lidocaine Viscous 2% 15 Ml Solution) 15 ml PO NOW ONE Stop: 06/25/23 19:23 Last Admin: 06/25/23 19:35 Dose: 15 ml Documented By: KALEIGH Morphine Sulfate (Morphine 4 Mg/Ml Inj) 4 mg IV NOW ONE Stop: 06/25/23 19:17 Last Admin: 06/25/23 21:40 Dose: Not Given Documented By: STEPHIE Vital Signs Vital signs: Vital Signs - 8 hr 06/25/23 19:15 06/25/23 20:01 06/25/23 20:27 Temperature 97.3 F L Pulse Rate 72 Respiratory Rate 16 Blood Pressure 192/85 H 179/81 H 141/65 H Pulse Oximetry 100 Oxygen Delivery Method Room Air 06/25/23 20:27 06/25/23 20:30 06/25/23 21:00 Temperature Pulse Rate 80 77 74 Respiratory Rate 18 Blood Pressure Pulse Oximetry 98 100 97 Oxygen Delivery Method MDM - Abdominal Pain Differential Diagnosis Differential diagnosis: Likely abdominal pain, acute appendicitis and calculus of kidney Lab Data 06/25/23 19:26 06/25/23 19:26 Labs: Lab Results 06/25/23 06/25/23 06/25/23 Range/Units 19:26 21:09 21:40 WBC 6.7 (4.5-11.0) X10^3/uL RBC 4.37 (4.0-5.2) X10^6/uL Hgb 13.9 (12.0-16.0) g/dL Hct 42.1 (36-46) % MCV 96.3 (80-100) fL MCH 31.8 (26-34) PG MCHC 33.1 (30-36) % RDW 13.2 (11.6-14.8) % Plt Count 325 (150-400) X10^3/uL Neut % (Auto) 42.7 L (50-75) % Lymph % (Auto) 43.2 H (25-40) % [place] % (Auto) 11.1 (3-14) % Eos % (Auto) 2.2 (2-4) % Baso % (Auto) 0.8 (0-2) % Neut # (Auto) 2900 (3265-0325) /uL Lymph # (Auto) 2900 (3094-8028) /uL [place] # (Auto) 700 (0-900) /uL Eos # (Auto) 100 (0-450) /uL Baso # (Auto) 100 (0-100) /uL Sodium 139 (137-145) mmol/L Potassium 4.0 (3.4-5.1) mmol/L Chloride 104 (98-107) mmol/L Carbon Dioxide 30 (22-32) mmol/L BUN 25 H (7-17) mg/dL Creatinine 0.98 (0.52-1.04) mg/dL Estimated GFR 58 L (>60) mL/min BUN/Creatinine Ratio 25.5 H (6-22) Glucose 102 (80-110) mg/dL Calcium 10.1 (8.4-10.2) mg/dL Total Bilirubin 0.4 (0.2-1.3) mg/dL AST 32 (14-36) IU/L ALT 21 (<35) IU/L Alkaline Phosphatase 60 (38-126) U/L Total Creatine Kinase 81 (30-135) U/L Troponin I < 0.012 < 0.012 (0.01-0.034) ng/mL Total Protein 7.6 (6.3-8.2) g/dL Albumin 4.8 (3.5-5.0) g/dL Globulin 2.8 (1.7-4.1) g/dL Albumin/Globulin Ratio 1.7 (1.0-2.8) Lipase 754 H (23-300) U/L Urine Color Yellow Urine Appearance Clear Urine pH 7.5 (4.5-8.0) Ur Specific [place] 1.010 (1.000-1.035) Urine Protein Negative (Negative) Urine Glucose (UA) Negative (Negative) g/dL Urine Ketones Negative (NEGATIVE) Urine Occult Blood Negative (Negative) Urine Nitrate Negative (Negative) Urine Bilirubin Negative (NEGATIVE) Urine Urobilinogen 0.2 (0.2) E.U./dL Ur Leukocyte Esterase Negative (NEGATIVE) Urine RBC 0-1/hpf (0-5/HPF) Urine WBC None seen (0-5/HPF) Ur Squamous Epith Cells 0-1 /hpf (0-5/HPF) Urine Bacteria None seen (None) Ur Culture Indicated? Cult not indicated Vol Urine Centrifuged 10ml (spun) Imaging Data Chest x-ray: Radiologist's Impression: PROCEDURE: XR CHEST 1V INDICATIONS: MIDEPIGASTRIC/RIB/ABDOMINAL PAIN TECHNIQUE: One view of the chest was acquired. COMPARISON: [facility], CT, CT ABDOMEN PELVIS W CON, 06/25/2023, 19:28. [facility], CR, XR CHEST 1V, 07/16/2017, 12:55. [facility], CR, XR CHEST 1V, 01/09/2022, 13:59. FINDINGS: Surgical changes and devices: None. Lungs and pleura: An incomplete inspiratory result is noted, causing a crowded appearance to the lung markings. No focal infiltrates are seen. No pneumothorax or significant pleural effusions are seen. There is elevation of the right hemidiaphragm Mediastinum: Mediastinal contours appear normal. Heart size is normal. Atherosclerotic calcification of the aortic arch is noted. Bones and chest wall: No suspicious bony lesions. Age-appropriate bony degenerative changes are seen. Overlying soft tissues appear unremarkable. IMPRESSION: Low lung volumes, without an acute abnormality seen by plain film. Elevation of the right hemidiaphragm can be seen. Dictated by: Dixon Andrade M.D. on 06/25/2023 at 18:51 Approved by: Dixon Andrade M.D. on 06/25/2023 at 18:52 CT scan - abdomen/pelvis: Radiologist's Impression: PROCEDURE: CT ABDOMEN PELVIS W CON INDICATIONS: MIDEPIGASTRIC/RIB/ABDOMINAL PAIN TECHNIQUE: After the administration of intravenous contrast, axial sections acquired from the lung bases to the pubic symphysis. Coronal and sagittal reformats were performed. For radiation dose reduction, the following was used: automated exposure control, adjustment of mA and/or kV according to patient size. COMPARISON: [facility], CR, XR CHEST 1V, 06/25/2023, 19:27. [facility], CT, CT-IVP, 08/25/2006, 8:48. FINDINGS: Image quality: Diagnostic. Lower Chest: A small to moderate hiatal hernia is incidentally noted. ABDOMEN: Liver: No solid mass. Simple appearing, water density cysts can be seen, without abnormal enhancement. Gallbladder: No radiopaque gallstones or wall thickening. Biliary ducts: No biliary dilation. Pancreas: No ductal dilation. Spleen: Size is within normal limits. Adrenal Glands: No adrenal nodules. Kidneys and Ureters: No hydronephrosis. No solid mass. No complex renal cystic lesion which requires follow up. Stomach and Bowel: The stomach demonstrates no significant abnormality. No dilated loops of small bowel are seen. The colon is relatively decompressed. No significant colonic abnormality is seen. Colonic diverticulosis is seen, without findings of active diverticulitis. A normal appendix is noted. Peritoneum: No abnormal intraperitoneal fluid. No free air. Ventral Wall: A mild periumbilical hernia is seen, containing fat. Abdominal Nodes: No retroperitoneal or mesenteric adenopathy by size criteria. Vessels: Aorta and inferior vena cava are normal in size. PELVIS: Pelvic Organs: The uterus appears normal for age. No adnexal masses are seen. Bladder: No bladder wall thickening, accounting for underdistention. Pelvic Nodes: No enlarged lymph nodes. Miscellaneous: No inguinal hernias are seen. Bones: No aggressive osseous abnormality. Multiple levels of significant degenerative change can be seen. Mild levoconvex scoliotic curvature is noted. IMPRESSION: No imaging explanation is found for this patient's presenting symptoms. Additional findings: Small to moderate hiatal hernia Simple liver cysts Fat containing periumbilical hernia Diverticulosis, without active diverticulitis Dictated by: Dixon Andrade M.D. on 06/25/2023 at 18:56 Approved by: Dixon Andrade M.D. on 06/25/2023 at 19:00 [facility] Narrative Medical decision making narrative: Uncomfortable but nontoxic patient with a bandlike painful sensation in her upper abdomen after eating. Abdomen is soft, despite the severity of patient's reported pain there is no reproducible tenderness to light or deep palpation. No peritoneal signs. Based on patient's age and the reported severity of pain however we will order CT of the abdomen and pelvis. Morphine and GI cocktail ordered for comfort. Patient refused morphine but reported significant improvement in her pain after GI cocktail. Laboratory work shows no leukocytosis, normal liver enzymes, normal electrolytes, normal kidney function. Patient does have an elevation in her lipase, however CT of the abdomen and pelvis does not show any acute inflammation of the pancreas and patient's abdomen has no reproducible tenderness to palpation. With resolution of symptoms after GI cocktail question if patient maybe has a component of dyspepsia. Patient adivsed of all lab and imaging findings. Recommended 24 hr return if patient does not feel better, and close PCP followup Discharge Plan Departure Patient Disposition: Home Clinical Impression: Dyspepsia, Pain in rib Instructions: DI for Abdominal Pain-Adult Activity Restrictions/Additional Instructions: Your laboratory work and CT imaging today did not show any obvious cause of your symptoms. Your pancreas enzymes were mildly elevated, however on CT scan your pancreas was normal in appearance. There is no evidence of a heart attack and either the blood work or on EKG. I highly recommend following up with your primary care physician if you continue to experience these intermittent abdominal pains. Please come back to the emergency department if your symptoms do not improve or worsen after 24 hours. Prescriptions: No Action CYANOCOBALAMIN (VITAMIN B-12) (Vitamin B-12) 1,000 mcg PO QDAY Qty: 0 [CO Q 10] Qty: 0 [FISH OIL] Qty: 0 albuterol sulfate 90 mcg/actuation HFA aerosol inhaler 2 inhalation INHALATION Q4H PRN (Reason: shortness of breath) Qty: 1 0RF Rx Instructions: administer with spacer lisinopril 20 mg tablet 20 mg PO DAILY Qty: 20 0RF Referrals: Fransisca Chan PA-C [Primary Care Provider] - Stand Alone Forms: Patient Portal/API
[2023-06-25 19:29] LABS: Add Manual Diff / Slide Review NO; Basophils Absolute Auto 100 /uL (0-100); Basophils Percent Auto 0.8 % (0-2); Eosinophils Absolute Auto 100 /uL (0-450); Eosinophils Percent Auto 2.2 % (2-4); Hematocrit 42.1 % (36-46); Hemoglobin 13.9 g/dL (12.0-16.0); Lymphocytes Absolute Auto 2900 /uL (1100-4500); Lymphocytes Percent Auto 43.2 % (25-40); Mean Corpuscular HGB Conc 33.1 % (30-36); Mean Corpuscular Hemoglobin 31.8 PG (26-34); Mean Corpuscular Volume 96.3 fL (80-100); Monocytes Absolute Auto 700 /uL (0-900); Monocytes Percent Auto 11.1 % (3-14); Neutrophils Absolute Auto 2900 /uL (1500-7000); Neutrophils Percent Auto 42.7 % (50-75); Platelet Count 325 X10^3/uL (150-400); Red Blood Cell Count 4.37 X10^6/uL (4.0-5.2); Red Cell Distribution Width 13.2 % (11.6-14.8); White Blood Cell Count 6.7 X10^3/uL (4.5-11.0)
[2023-06-25] MEDS: LIDOCAINE VISCOUS 2% 15 ML SOLUTION PO (19:35)
[2023-06-25] MEDS: MAG HYDROX/ALUM/SIMETH 30 ML UDC PO (19:38)
[2023-06-25 19:41] LABS: Alanine Aminotransferase 21 IU/L (<35); Albumin 4.8 g/dL (3.5-5.0); Albumin Globulin Ratio 1.7 (1.0-2.8); Alkaline Phosphatase 60 U/L (38-126); Aspartate Aminotransferase 32 IU/L (14-36); BUN Creatinine Ratio 25.5 (6-22); Bilirubin Total 0.4 mg/dL (0.2-1.3); Blood Urea Nitrogen 25 mg/dL (7-17); Calcium 10.1 mg/dL (8.4-10.2); Carbon Dioxide 30 mmol/L (22-32); Chloride 104 mmol/L (98-107); Creatine Kinase 81 U/L (30-135); Estimated Glomerular Filt Rate 58 mL/min (>60); Globulin 2.8 g/dL (1.7-4.1); Glucose 102 mg/dL (80-110); HEMOLYSIS < 15 (0-50); Lipase 754 U/L (23-300); Sodium 139 mmol/L (137-145); Total Protein 7.6 g/dL (6.3-8.2)
[2023-06-25 19:53] LABS: Troponin I < 0.012 ng/mL (0.01-0.034)
[2023-06-25 20:01] VITALS: BP 179/81
[2023-06-25 20:27] VITALS: BP 141/65; PULSE 80; O2SAT 98
[2023-06-25 20:30] VITALS: PULSE 77; O2SAT 100
[2023-06-25] MEDS: SODIUM CHLORIDE 0.9% 1,000 ML 1000 ML IV (20:50)
[2023-06-25 21:00] VITALS: PULSE 74; RESP 18; O2SAT 97
[2023-06-25 21:22] LABS: Appearance Urine UA CLEAR; Bilirubin Urine UA NEGATIVE (NEGATIVE); Color Urine UA YELLOW; Glucose Urine UA NEGATIVE (Negative); Ketones Urine UA NEGATIVE (NEGATIVE); Leukocyte Esterase Urine UA NEGATIVE (NEGATIVE); Nitrite Urine UA NEGATIVE (Negative); Occult Blood Urine UA NEGATIVE (Negative); Protein Urine UA NEGATIVE (Negative); Urobilinogen Urine UA 0.2 E.U./dL (0.2)
[2023-06-25 21:23] LABS: pH Urine UA 7.5 (4.5-8.0)
[2023-06-25 21:29] LABS: Bacteria Urine None Seen; Culture Indicated Urine Cult Not Indicated; RBC Urine 0-1/HPF (0-5/HPF); Squamous Epithelial Cell Urine 0-1 /HPF (0-5/HPF); Urine Volume 10mL (spun); WBC Urine None Seen (0-5/HPF)
[2023-06-25 22:11] LABS: Troponin I < 0.012 ng/mL (0.01-0.034)
[2023-06-25 22:37] VITALS: BP 130/60; PULSE 75; RESP 18; O2SAT 97
== END 2023-06-25 22:47 | disposition home or self-care (01) ==
PROVIDERS: Emergency Provider Emergency Medicine; PCP Physician Assistant
DX: R10.13 Epigastric pain (principal); R07.81 Pleurodynia
CPT/HCPCS: 36415; 71045; 74177; 80053; 81001; 82550; 83690; 84484; 85025; 93005; 93010; 96360; 99284; Q9967

== ENCOUNTER 2024-03-10 13:07 | Emergency (ER) | payer MEDICARE, SELFPAY ==
[2024-03-10] VITALS (8 sets, daily range): BP systolic 169–190; BP diastolic 76–83; PULSE 73–88; RESP 15–23; TEMP 36.1–36.6; O2SAT 96–98; BMI 30.2
--- NOTE | 2024-03-10 14:33 | DI.CT.S_ITS ---
PROCEDURE: CT HEAD/BRAIN WO CON INDICATIONS: visual changes this morning, has since resolved TECHNIQUE: Noncontrast 4.5 mm thick angled axial sections acquired from the foramen magnum to the vertex, with coronal and sagittal reformats. For radiation dose reduction, the following was used: automated exposure control, adjustment of mA and/or kV according to patient size. COMPARISON: [facility], CT, CT HEAD/BRAIN WO CON, 09/30/2022, 23:13. FINDINGS: Image quality: Diagnostic CSF spaces: Basal cisterns are patent. Lateral ventricles are symmetric. Volume: Vascular calcifications. Periventricular white matter disease is commonly seen with chronic microangiopathy. Volume loss is present. These findings are [id number] Brain: Basal ganglia mineralization. No acute hemorrhage. No gross loss of glaser-white differentiation. Craniofacial structures: Lens replacements. No significant paranasal sinus opacity. IMPRESSION: No acute intracranial pathology. If there is high concern for parenchymal pathology, consider further evaluation with MRI. Dictated by: Santiago Dacosta M.D. on 03/10/2024 at 15:20 Approved by: Santiago Dacosta M.D. on 03/10/2024 at 15:21
--- NOTE | 2024-03-10 14:33 | DI.CT.S_ITS ---
PROCEDURE: CT ANGIO HEAD AND NECK INDICATIONS: visual changes this morning, has since resolved TECHNIQUE: After the administration of intravenous contrast, 1 mm thick sections acquired from the aortic arch through the [place] of [place]. 3-dimensional qvzaosq-licqepzfq-anspklhgna (MIP) and/or volume rendering reformats were acquired of the central intracranial vasculature and neck separately. For radiation dose reduction, the following was used: automated exposure control, adjustment of mA and/or kV according to patient size. COMPARISON: None. FINDINGS: Image quality: Diagnostic HEAD ANGIOGRAPHY: Anterior circulation: ICAs: Ixyu-[id number] cavernous and petrous calcifications. The ophthalmic arteries appear symmetric, distal portions are too small to characterize on CT. 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 Moderate calcifications of the left subclavian CCAs: No stenosis, occlusion, or aneurysm. ICA origins (by NASCET criteria): Bazd-il-zesahien calcifications and plaque of the right origin and proximal ICA, about 50% narrowing. Mild calcifications at the left origin less than 50% narrowing ICAs: Patent ECAs: Calcifications at the origin on the right Vertebral arteries: Non opacification of the left vertebral artery in the cervical segment. There is only short segment opacification in the proximal segment near the subclavian. Soft tissues: No significant mass, aneurysm, or lymphadenopathy Lung apices: No apical pneumothorax Bones: There are degenerative changes. Probable degenerative anterolisthesis of C3 on C4. IMPRESSION: There is poor opacification of the mid left vertebral artery. Contrast seen in the distal portion of the left vertebral artery is likely from retrograde flow. This may be due to thromboembolic disease versus dissection, acuity indeterminate. There is moderate atherosclerotic disease of the left subclavian. Lower grade atherosclerotic disease is seen elsewhere. No large vessel occlusion otherwise. If there is high concern for infarct, consider MRI. Where visualized, the ophthalmic arteries appear patent Other findings above. Any quantitative measurements of stenosis were performed using NASCET criteria. Dictated by: Santiago Dacosta M.D. on 03/10/2024 at 15:22 Approved by: Santiago Dacosta M.D. on 03/10/2024 at 15:30
[2024-03-10 14:51] LABS: Add Manual Diff / Slide Review NO; Basophils Absolute Auto 100 /uL (0-100); Basophils Percent Auto 1.1 % (0-2); Eosinophils Absolute Auto 100 /uL (0-450); Eosinophils Percent Auto 0.9 % (2-4); Hematocrit 42.3 % (36-46); Hemoglobin 13.8 g/dL (12.0-16.0); Lymphocytes Absolute Auto 1700 /uL (1100-4500); Lymphocytes Percent Auto 28.3 % (25-40); Mean Corpuscular HGB Conc 32.7 % (30-36); Mean Corpuscular Hemoglobin 31.6 PG (26-34); Mean Corpuscular Volume 96.5 fL (80-100); Monocytes Absolute Auto 400 /uL (0-900); Monocytes Percent Auto 7.5 % (3-14); Neutrophils Absolute Auto 3700 /uL (1500-7000); Neutrophils Percent Auto 62.2 % (50-75); Platelet Count 329 X10^3/uL (150-400); Red Blood Cell Count 4.38 X10^6/uL (4.0-5.2); Red Cell Distribution Width 13.5 % (11.6-14.8)
[2024-03-10 15:00] LABS: Alanine Aminotransferase 20 IU/L (<35); Albumin 4.2 g/dL (3.5-5.0); Albumin Globulin Ratio 1.4 (1.0-2.8); Alkaline Phosphatase 63 U/L (38-126); Aspartate Aminotransferase 29 IU/L (14-36); BUN Creatinine Ratio 18.6 (6-22); Bilirubin Total 0.4 mg/dL (0.2-1.3); Blood Urea Nitrogen 21 mg/dL (7-17); Calcium 9.6 mg/dL (8.4-10.2); Carbon Dioxide 28 mmol/L (22-32); Chloride 104 mmol/L (98-107); Estimated Glomerular Filt Rate 49 mL/min (>60); Glucose 96 mg/dL (80-110); HEMOLYSIS < 15 (0-50); Potassium 4.4 mmol/L (3.4-5.1); Sodium 138 mmol/L (137-145); Total Protein 7.2 g/dL (6.3-8.2)
--- NOTE | 2024-03-10 17:04 | PC.NURSE ---
Addendum entered by Monique Jensen R.N. 03/10/24 17:41: Pupils round, equal and reactive. pupils 2mm. Original Note: Pt reports nystagmus this morning around 0930 that resolved within five minutes after putting pressure on her eyes for five minutes. Pt states she felt dizzy and had a mild headache that has somewhat persisted. Pt states she called the help line who stated she should come to the ER. 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 No abnormalities noted with gait. No facial droop or problems with speech noted. GCS 15. Respirations regular and unlabored. Visual haley WNL. Pt states her symptoms have resolved and wonders if her symptoms were caused from migraine, stroke, or inner ear canal issues.
--- NOTE | 2024-03-10 17:26 | ED_ITS ---
HPI - Neuro Symptoms/Deficit General Chief Complaint: Eye Problems Stated Complaint: thinks she is having a stroke Time Seen by Provider: 03/10/24 17:26 Source: patient Mode of arrival: Ambulatory History of Present Illness HPI Narrative: 83-year-old female history of hyperlipidemia, hypertension, CKD comes into the ED from home for evaluation of ?bilateral spontaneous nystagmus states that this started this morning states that it lasts for 5 minutes but completely resolved. States that she has had similar symptoms with history of migraines, is complaining of a slight headache but denies any trauma or falls, denies any actual visual disturbances at this time. No other complaints such chest pain shortness breath fever chills nausea vomiting abdominal pain or any other GI/ symptoms time. On Anticoagulants: No Related Data Home Medications Medication Instructions Recorded Confirmed CYANOCOBALAMIN (VITAMIN B-12) 1,000 mcg PO QDAY ##0 03/16/11 12/19/23 (Vitamin B-12) [CO Q 10] ##0 05/05/16 12/19/23 [FISH OIL] ##0 05/05/16 12/19/23 Previous Rx's Medication Instructions Recorded albuterol sulfate 90 mcg/actuation 2 inhalation inhalation Q4H PRN 10/24/19 aerosol inhaler shortness of breath #1 device lisinopril 20 mg tablet 20 mg PO DAILY #20 tabs 01/09/22 Allergies Allergy/AdvReac Type Severity Reaction Status Date / Time omeprazole [OMEPRAZOLE] Allergy Severe chest pain Verified 03/10/24 13:12 diclofenac [DICLOFENAC] Allergy Mild chest pain Verified 03/10/24 13:12 metoprolol [METOPROLOL] AdvReac Mild mentally Verified 03/10/24 13:12 disconnected niacin [NIACIN] AdvReac Mild headache Verified 03/10/24 13:12 NSAIDS (Non-Steroidal AdvReac Mild sensitivity Verified 03/10/24 13:12 Anti-Inflamma [NSAIDS (NON-STEROIDAL ANTI-INFLAMMA] pravastatin [PRAVASTATIN] AdvReac Mild leg Verified 03/10/24 13:12 pain/hematuria ranitidine [RANITIDINE] AdvReac Mild mental Verified 03/10/24 13:12 issues Review of Systems Hematologic/Lymphatic On Anticoagulants: No Patient History Medical History Smoker Vision abnormalities Muscle tightness Leg pain Right hip flexor tightness (~2014) Actinic keratosis (~2006) Chickenpox (~1946) Measles (~1946) Mumps (~1946) Vitreous detachment, bilateral Cataract (~2013) Microscopic hematuria Cold sensitivity Hyperlipidemia Blocked tear duct Maki's esophagus (~2004) Hx of migraines (~2012) History of anemia (~2010) Reactive airway disease Anxiety Asymptomatic microscopic hematuria Degenerative cervical disc Surgical History Anesthesia History of thumb surgery (~2009) History of endoscopy History of facelift History of cataract removal with insertion of prosthetic lens (~2013) History of cystoscopy Status post tubal ligation (~1984) Family History Brother Diabetes mellitus High cholesterol Father Diabetes mellitus High cholesterol Grandfather Heart disease Grandmother Cancer Mother Diabetes mellitus Mental health problem History of breast cancer Social History Smoking Status: Former smoker Tobacco: How many years used: 38 Smoking Status: Former smoker alcohol intake frequency: 0-2 drinks per day Exam Initial Vital Signs Initial Vital Signs: Vital Signs Temperature 97.8 F 03/10/24 13:12 Pulse Rate 81 03/10/24 13:12 Respiratory Rate 18 03/10/24 13:12 Blood Pressure 174/77 H 03/10/24 13:12 Pulse Oximetry 98 03/10/24 13:12 Oxygen Delivery Method Room Air 03/10/24 13:12 Course Orders Ordered: ED Orders 03/10/24 14:33 CT angio head and neck Stat CT head/brain wo con Stat 03/10/24 14:40 Complete Blood Count AUTO DIFF Stat Comprehensive Metabolic Panel Stat Lipase Stat MAG [Magnesium] Stat Troponin & CK Cardiac Panel Stat 03/10/24 17:47 CXR [XR chest 1V] Stat 03/10/24 18:16 EKG-12 Lead Stat Discontinued Medications Aspirin (Aspirin Ec 325 Mg Tablet) 325 mg PO NOW ONE Stop: 03/10/24 18:16 Last Admin: 03/10/24 18:29 Dose: Not Given Documented By: KEILA Aspirin (Aspirin 81 Mg Chew Tab) 324 mg PO NOW ONE Stop: 03/10/24 18:28 Last Admin: 03/10/24 18:32 Dose: 324 mg Documented By: KEILA Dexamethasone (Dexamethasone 10 Mg/Ml Vial) 10 mg IV NOW ONE Stop: 03/10/24 17:48 Last Admin: 03/10/24 18:14 Dose: Not Given Documented By: KEILA Diphenhydramine HCl (Diphenhydramine 50 Mg/Ml Vial) 25 mg IV NOW ONE Stop: 03/10/24 17:48 Last Admin: 03/10/24 18:14 Dose: Not Given Documented By: KEILA Metoclopramide HCl (Metoclopramide 10 Mg/2 Ml Inj) 10 mg IV NOW ONE Stop: 03/10/24 17:48 Last Admin: 03/10/24 18:14 Dose: Not Given Documented By: KEILA Vital Signs Vital signs: Vital Signs - 8 hr 03/10/24 13:12 Temperature 97.8 F Pulse Rate 81 Respiratory Rate 18 Blood Pressure 174/77 H Pulse Oximetry 98 Oxygen Delivery Method Room Air MDM - Neuro Symptoms/Deficit Lab Data 03/10/24 14:40 03/10/24 14:40 Labs: Lab Results 03/10/24 Range/Units 14:40 WBC 6.0 (4.5-11.0) X10^3/uL RBC 4.38 (4.0-5.2) X10^6/uL Hgb 13.8 (12.0-16.0) g/dL Hct 42.3 (36-46) % MCV 96.5 (80-100) fL MCH 31.6 (26-34) PG MCHC 32.7 (30-36) % RDW 13.5 (11.6-14.8) % Plt Count 329 (150-400) X10^3/uL Neut % (Auto) 62.2 (50-75) % Lymph % (Auto) 28.3 (25-40) % [place] % (Auto) 7.5 (3-14) % Eos % (Auto) 0.9 L (2-4) % Baso % (Auto) 1.1 (0-2) % Neut # (Auto) 3700 (9630-1022) /uL Lymph # (Auto) 1700 (3182-3522) /uL [place] # (Auto) 400 (0-900) /uL Eos # (Auto) 100 (0-450) /uL Baso # (Auto) 100 (0-100) /uL Sodium 138 (137-145) mmol/L Potassium 4.4 (3.4-5.1) mmol/L Chloride 104 (98-107) mmol/L Carbon Dioxide 28 (22-32) mmol/L BUN 21 H (7-17) mg/dL Creatinine 1.13 H (0.52-1.04) mg/dL Estimated GFR 49 L (>60) mL/min BUN/Creatinine Ratio 18.6 (6-22) Glucose 96 (80-110) mg/dL Calcium 9.6 (8.4-10.2) mg/dL Magnesium 2.0 (1.6-2.3) mg/dL Total Bilirubin 0.4 (0.2-1.3) mg/dL AST 29 (14-36) IU/L ALT 20 (<35) IU/L Alkaline Phosphatase 63 (38-126) U/L Total Creatine Kinase 62 (30-135) U/L Troponin I < 0.012 (0.01-0.034) ng/mL Total Protein 7.2 (6.3-8.2) g/dL Albumin 4.2 (3.5-5.0) g/dL Globulin 3.0 (1.7-4.1) g/dL Albumin/Globulin Ratio 1.4 (1.0-2.8) Lipase 115 (23-300) U/L Imaging Data CT scan - head: Radiologist's Impression: [address] [address] [address] Scan Report Signed Patient: Barby Carvalho MR#: [id number] : 1940 Acct:[id number] Age/Sex: 83 / F Date of Service: 03/10/24 Loc: ED Accession Number: [id number] Procedure: CT head/brain wo con Ordering Provider: Kareem Khan D.O. PROCEDURE: CT HEAD/BRAIN WO CON INDICATIONS: visual changes this morning, has since resolved TECHNIQUE: Noncontrast 4.5 mm thick angled axial sections acquired from the foramen magnum to the vertex, with coronal and sagittal reformats. For radiation dose reduction, the following was used: automated exposure control, adjustment of mA and/or kV according to patient size. COMPARISON: [facility], CT, CT HEAD/BRAIN WO CON, 09/30/2022, 23:13. FINDINGS: Image quality: Diagnostic CSF spaces: Basal cisterns are patent. Lateral ventricles are symmetric. Volume: Vascular calcifications. Periventricular white matter disease is commonly seen with chronic microangiopathy. Volume loss is present. These findings are ywbj-og-hmiehakd Brain: Basal ganglia mineralization. No acute hemorrhage. No gross loss of glaser-white differentiation. Craniofacial structures: Lens replacements. No significant paranasal sinus opacity. IMPRESSION: No acute intracranial pathology. If there is high concern for parenchymal pathology, consider further evaluation with MRI. CTA - brain/neck: Radiologist's Impression: [address] [address] [address] Scan Report Signed Patient: Barby Carvalho MR#: [id number] : 1940 Acct:[id number] Age/Sex: 83 / F Date of Service: 03/10/24 Loc: ED Accession Number: [id number] Procedure: CT angio head and neck Ordering Provider: Kareem Khan D.O. PROCEDURE: CT ANGIO HEAD AND NECK INDICATIONS: visual changes this morning, has since resolved TECHNIQUE: After the administration of intravenous contrast, 1 mm thick sections acquired from the aortic arch through the [place] of [place]. 3-dimensional qqphgfw-mnuvokckj-lxosurlynx (MIP) and/or volume rendering reformats were acquired of the central intracranial vasculature and neck separately. For radiation dose reduction, the following was used: automated exposure control, adjustment of mA and/or kV according to patient size. COMPARISON: None. FINDINGS: Image quality: Diagnostic HEAD ANGIOGRAPHY: Anterior circulation: ICAs: Ncmg-ay-kqrbqfqh cavernous and petrous calcifications. The ophthalmic arteries appear symmetric, distal portions are too small to characterize on CT. ACAs: Patent MCAs: Patent AComm: No aneurysm Venous sinuses: Patent where visualized Posterior circulation: Dominance: Right Vertebral arteries: Patent Basilar artery: Patent PComms: No aneurysm parer: Patent NECK ANGIOGRAPHY: Aortic arch and subclavian arteries: Mild calcifications of the arch. Moderate calcifications of the left subclavian CCAs: No stenosis, occlusion, or aneurysm. ICA origins (by NASCET criteria): Rpty-uu-vjjlpceb calcifications and plaque of the right origin and proximal ICA, about 50% narrowing. Mild calcifications at the left origin less than 50% narrowing ICAs: Patent ECAs: Calcifications at the origin on the right Vertebral arteries: Non opacification of the left vertebral artery in the cervical segment. There is only short segment opacification in the proximal segment near the subclavian. Soft tissues: No significant mass, aneurysm, or lymphadenopathy Lung apices: No apical pneumothorax Bones: There are degenerative changes. Probable degenerative anterolisthesis of C3 on C4. IMPRESSION: There is poor opacification of the mid left vertebral artery. Contrast seen in the distal portion of the left vertebral artery is likely from retrograde flow. This may be due to thromboembolic disease versus dissection, acuity indeterminate. There is moderate atherosclerotic disease of the left subclavian. Lower grade atherosclerotic disease is seen elsewhere. No large vessel occlusion otherwise. If there is high concern for infarct, consider MRI. Where visualized, the ophthalmic arteries appear patent Other findings above. Any quantitative measurements of stenosis were performed using NASCET criteria. Chest x-ray: Radiologist's Impression: [address] [address] XRay Report Signed Patient: Barby Carvalho MR#: [id number] : 1940 Acct:[id number] Age/Sex: 83 / F Date of Service: 03/10/24 Loc: ED Accession Number: [id number] Procedure: XR chest 1V Ordering Provider: Kareem Khan D.O. PROCEDURE: XR CHEST 1V INDICATIONS: dizziness TECHNIQUE: One view of the chest was acquired. COMPARISON: [facility], CR, XR CHEST 1V, 06/25/2023, 19:27. [facility], CR, XR CHEST 1V, 01/09/2022, 13:59. FINDINGS: Surgical changes and devices: None. 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 Probable right mid lung scarring or atelectasis. No dense consolidation or pleural effusion. Mediastinum: Unchanged cardiomediastinal contours. Bones and chest wall: Degenerative findings IMPRESSION: Single view radiograph without acute abnormality. Suspected eventration of the right hemidiaphragm as before. ECG Data Interpretation: EKG interpreted ED physician sinus bradycardia at 59 beats per minute QTC 382, normal axis, nonspecific ST changes, no STEMI MDM Narrative Medical decision making narrative: 83-year-old female history of hypertension migraine hyperlipidemia presents for what patient describes as nystagmus. States that this started when she looked at the light when she went outside, states that she felt her eyes moving jqvk-uf-wrnph for about 5 minutes, does have dull headache but denies any visual disturbances. At time of initial evaluation patient with NIH of 0. Patient with troponin negative, lab work unremarkable for any acute findings. Electrolytes normal. 1745: Awaiting call back from [facility] to discuss case with neurology 1800: Discussed case with neurology Jaxon Gupta, personally reviewed images and recommends. States that she does agree with the radiologist reading. States patient is low risk TIA. Recs to start patient on ASA (fulldose) here and daily baby aspirin for home. doesnt need any additional interventions at this time. Recommended follow up outpatient. States can hold off on statin at this time given history of allergy, but does recommend patient should follow up with their primary care doctor to discuss possible alternatives. 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 Disease processes change and evolve, if your symptoms worsen or if you develop any new symptoms that are concerning to you please return for evaluation. Your evaluation today does not show any evidence of any life- threatening/serious illnesses requiring admission to the hospital or surgery. Please follow-up with your doctor for re-evaluation in approximately 1 day. Seek immediate medical attention for any worrisome symptoms. *If you do not have a primary care provider please contact the [facility] Resource line at [phone]. They will ask some questions about your medical history and help get you set up with a doctor in the community. Prescriptions: No Action CYANOCOBALAMIN (VITAMIN B-12) (Vitamin B-12) 1,000 mcg PO QDAY Qty: 0 [CO Q 10] Qty: 0 [FISH OIL] Qty: 0 albuterol sulfate 90 mcg/actuation HFA aerosol inhaler 2 inhalation INHALATION Q4H PRN (Reason: shortness of breath) Qty: 1 0RF Rx Instructions: administer with spacer lisinopril 20 mg tablet 20 mg PO DAILY Qty: 20 0RF Referrals: Sumi Coates MD [Non-Staff] - (Vertebral artery occlusion vs dissection ) Fransisca Chan PA-C [Primary Care Provider] - Stand Alone Forms: Patient Portal/API/Survey
--- NOTE | 2024-03-10 17:47 | DI.RAD.S_ITS ---
PROCEDURE: XR CHEST 1V INDICATIONS: dizziness TECHNIQUE: One view of the chest was acquired. COMPARISON: [facility], CR, XR CHEST 1V, 06/25/2023, 19:27. [facility], CR, XR CHEST 1V, 01/09/2022, 13:59. FINDINGS: Surgical changes and devices: None. 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 Probable right mid lung scarring or atelectasis. No dense consolidation or pleural effusion. Mediastinum: Unchanged cardiomediastinal contours. Bones and chest wall: Degenerative findings IMPRESSION: Single view radiograph without acute abnormality. Suspected eventration of the right hemidiaphragm as before. Dictated by: Santiago Dacosta M.D. on 03/10/2024 at 17:14 Approved by: Santiago Dacosta M.D. on 03/10/2024 at 17:16
[2024-03-10 18:01] LABS: Creatine Kinase 62 U/L (30-135); Lipase 115 U/L (23-300)
[2024-03-10 18:14] LABS: Troponin I < 0.012 ng/mL (0.01-0.034)
[2024-03-10] MEDS: ASPIRIN 81 MG CHEW TAB 324 MG PO (18:32)
--- NOTE | 2024-03-10 18:36 | EKG_ITS ---
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
== END 2024-03-10 19:09 | disposition home or self-care (01) ==
PROVIDERS: Emergency Provider Student in an Organized Health Care Education/Training Program; PCP Physician Assistant
DX: I65.02 Occlusion and stenosis of left vertebral artery (principal); I10 Essential (primary) hypertension; G43.909 Migraine, unspecified, not intractable, without status migrainosus; Z87.891 Personal history of nicotine dependence
CPT/HCPCS: 36415; 70450; 70496; 70498; 71045; 80053; 82550; 83690; 83735; 84484; 85025; 93005; 99284; 99285; Q9967

== ENCOUNTER 2024-03-21 16:25 | Emergency (ER) | payer MEDICARE, SELFPAY ==
[2024-03-21 16:27] VITALS: BP 141/75; PULSE 87; RESP 16; TEMP 36.6; O2SAT 99; BMI 31.3
--- NOTE | 2024-03-21 18:30 | DI.CT.S_ITS ---
PROCEDURE: CT HEAD/BRAIN WO CON INDICATIONS: brief blindness, now resolved TECHNIQUE: Noncontrast 4.5 mm thick angled axial sections acquired from the foramen magnum to the vertex, with coronal and sagittal reformats. For radiation dose reduction, the following was used: automated exposure control, adjustment of mA and/or kV according to patient size. COMPARISON: [facility], CT, CT HEAD/BRAIN WO CON, 03/10/2024, 15:27. FINDINGS: Image quality: Diagnostic CSF spaces: Basal cisterns are patent. Lateral ventricles are symmetric. Volume: Vascular calcifications. Periventricular white matter disease is commonly seen with chronic microangiopathy. Volume loss is present. These findings are mild Brain: Empty sella. No acute intracranial hemorrhage. No gross loss of glaser-white differentiation. Craniofacial structures: No significant paranasal sinus opacity. Lens replacements. IMPRESSION: No acute intracranial abnormality. If there is high concern for parenchymal pathology, consider further evaluation with MRI. Dictated by: Santiago Dacosta M.D. on 03/21/2024 at 19:44 Approved by: Santiago Dacosta M.D. on 03/21/2024 at 19:46
--- NOTE | 2024-03-21 18:33 | ED_ITS ---
HPI - Neuro Symptoms/Deficit General Chief Complaint: Neuro Symptoms/Deficit Stated Complaint: blindness x 5 min with resolution Time Seen by Provider: 03/21/24 17:50 History of Present Illness HPI Narrative: 84yoF presents for brief visual disturbance at home. Patient states that she was at the stove cooking when she accidentally looked up into the fluorescent lights. She reports a near blindness sensation like a bar across her vision. She grabbed her phone and called her family member, who told her she should come to the ER to make sure she did not have a stroke. Patient reports hx of occular migraines. Seen 03/10 for bilateral spontaneous nystagmus after walking suddenly into a brightly lit area. patietn states bright lights are a known trigger for her. She underwwent CT head, CTA head/neck imaging at that time. Patient denying complaints currently.Vision is currently at baseline On Anticoagulants: No Related Data Home Medications Medication Instructions Recorded Confirmed CYANOCOBALAMIN (VITAMIN B-12) 1,000 mcg PO QDAY ##0 03/16/11 12/19/23 (Vitamin B-12) [CO Q 10] ##0 05/05/16 12/19/23 [FISH OIL] ##0 05/05/16 12/19/23 Previous Rx's Medication Instructions Recorded albuterol sulfate 90 mcg/actuation 2 inhalation inhalation Q4H PRN 10/24/19 aerosol inhaler shortness of breath #1 device lisinopril 20 mg tablet 20 mg PO DAILY #20 tabs 01/09/22 Allergies Allergy/AdvReac Type Severity Reaction Status Date / Time omeprazole [OMEPRAZOLE] Allergy Severe chest pain Verified 03/10/24 13:12 diclofenac [DICLOFENAC] Allergy Mild chest pain Verified 03/10/24 13:12 metoprolol [METOPROLOL] AdvReac Mild mentally Verified 03/10/24 13:12 disconnected niacin [NIACIN] AdvReac Mild headache Verified 03/10/24 13:12 NSAIDS (Non-Steroidal AdvReac Mild sensitivity Verified 03/10/24 13:12 Anti-Inflamma [NSAIDS (NON-STEROIDAL ANTI-INFLAMMA] pravastatin [PRAVASTATIN] AdvReac Mild leg Verified 03/10/24 13:12 pain/hematuria ranitidine [RANITIDINE] AdvReac Mild mental Verified 03/10/24 13:12 issues Review of Systems Hematologic/Lymphatic On Anticoagulants: No Patient History Medical History Smoker Vision abnormalities Muscle tightness Leg pain Right hip flexor tightness (~2014) Actinic keratosis (~2006) Chickenpox (~1946) Measles (~1946) Mumps (~1946) Vitreous detachment, bilateral Cataract (~2013) Microscopic hematuria Cold sensitivity Hyperlipidemia Blocked tear duct Maki's esophagus (~2004) Hx of migraines (~2012) History of anemia (~2010) Reactive airway disease Anxiety Asymptomatic microscopic hematuria Degenerative cervical disc Surgical History Anesthesia History of thumb surgery (~2009) History of endoscopy History of facelift History of cataract removal with insertion of prosthetic lens (~2013) History of cystoscopy Status post tubal ligation (~1984) Family History Brother Diabetes mellitus High cholesterol Father Diabetes mellitus High cholesterol Grandfather Heart disease Grandmother Cancer Mother Diabetes mellitus Mental health problem History of breast cancer Social History Smoking Status: Former smoker Tobacco: How many years used: 38 Smoking Status: Former smoker alcohol intake frequency: 0-2 drinks per day Exam Initial Vital Signs Initial Vital Signs: Vital Signs Temperature 97.9 F 03/21/24 16:27 Pulse Rate 87 03/21/24 16:27 Respiratory Rate 16 03/21/24 16:27 Blood Pressure 141/75 H 03/21/24 16:27 Pulse Oximetry 99 03/21/24 16:27 Oxygen Delivery Method Room Air 03/21/24 16:27 Const: Awake, alert, no acute distress, nontoxic appearing Eyes: PERRL, EOMI, no nystagmus. Vision currently at baseline per patient Cardiac: regular rate, regular rhythm RESP: unlabored, clear bilaterally, no wheezing Skin: Warm, Dry, intact, no rashes Neuro: AO x3, CN II-XII grossly intact, moves all extremities, gait normal Course Orders Ordered: Discontinued Medications Al Hydrox/Mg Hydrox/Simethicone (Mag Hydrox/Alum/Simeth 30 Ml Udc) 30 ml PO NOW ONE Stop: 03/21/24 20:04 Last Admin: 03/21/24 20:08 Dose: 30 ml Documented By: BEHZAD Vital Signs Vital signs: Vital Signs - 8 hr 03/21/24 16:27 Temperature 97.9 F Pulse Rate 87 Respiratory Rate 16 Blood Pressure 141/75 H Pulse Oximetry 99 Oxygen Delivery Method Room Air MDM - Neuro Symptoms/Deficit Imaging Data CT scan - head: Radiologist's Impression: PROCEDURE: CT HEAD/BRAIN WO CON INDICATIONS: brief blindness, now resolved TECHNIQUE: Noncontrast 4.5 mm thick angled axial sections acquired from the foramen magnum to the vertex, with coronal and sagittal reformats. For radiation dose reduction, the following was used: automated exposure control, adjustment of mA and/or kV according to patient size. COMPARISON: [facility], CT, CT HEAD/BRAIN WO CON, 03/10/2024, 15:27. FINDINGS: Image quality: Diagnostic CSF spaces: Basal cisterns are patent. Lateral ventricles are symmetric. Volume: Vascular calcifications. Periventricular white matter disease is commonly seen with chronic microangiopathy. Volume loss is present. These findings are mild Brain: Empty sella. No acute intracranial hemorrhage. No gross loss of glaser- white differentiation. Craniofacial structures: No significant paranasal sinus opacity. Lens replacements. IMPRESSION: No acute intracranial abnormality. If there is high concern for parenchymal pathology, consider further evaluation with MRI. Dictated by: Santiago Dacosta M.D. on 03/21/2024 at 19:44 Approved by: Santiago Dacosta M.D. on 03/21/2024 at 19:46 [facility] Narrative Medical decision making narrative: Patient with brief episode of ?near blindness? sensation after looking into bright light, which is a known trigger for patient's ocular migraines. Vision currently at baseline. No other focal deficits. Records reviewed from patient 's visit on 03/10. At that time neurology reviewed images, patient deemed low risk for TIA. Based on patient's description of symptoms and recent unremarkable workup I have low suspicion for ischemic process at this time. Repeat head CT normal. MRI not currently available however based on patient's description of events and after review of previous neurology recommendations patient should be stable for outpatient follow up . She was advised to follow up with PCP. May consider f/u with neurologist or contact finger assembler if symptoms continue. Discharge Plan Departure Patient Disposition: Home Clinical Impression: Transient vision disturbance Instructions: DI for Visual Field Disturbances Activity Restrictions/Additional Instructions: Your CT scan today did not show any signs of stroke. Follow up with your primary care doctor. You may want to speak to a neurologist or contact finger assembler if you continued to have these visual disturbances Prescriptions: No Action CYANOCOBALAMIN (VITAMIN B-12) (Vitamin B-12) 1,000 mcg PO QDAY Qty: 0 [CO Q 10] Qty: 0 [FISH OIL] Qty: 0 albuterol sulfate 90 mcg/actuation HFA aerosol inhaler 2 inhalation INHALATION Q4H PRN (Reason: shortness of breath) Qty: 1 0RF Rx Instructions: administer with spacer lisinopril 20 mg tablet 20 mg PO DAILY Qty: 20 0RF Referrals: Fransisca Chan PA-C [Primary Care Provider] - Stand Alone Forms: Patient Portal/API/Survey
[2024-03-21 19:56] VITALS: PULSE 89; O2SAT 94
[2024-03-21 19:57] VITALS: BP 168/74; PULSE 89; O2SAT 99
--- NOTE | 2024-03-21 20:05 | EKG_ITS ---
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
[2024-03-21] MEDS: MAG HYDROX/ALUM/SIMETH 30 ML UDC PO (20:08)
== END 2024-03-21 19:58 | disposition home or self-care (01) ==
PROVIDERS: Emergency Provider Emergency Medicine; PCP Physician Assistant
DX: H53.8 Other visual disturbances (principal); Z86.69 Personal history of other diseases of the nervous system and sense organs
CPT/HCPCS: 70450; 93005; 93010; 99283; 99284

== ENCOUNTER → 2024-05-03 06:51 | Outpatient (CLI) | payer MEDICARE, SELFPAY ==
--- NOTE | 2024-05-03 07:00 | DI.US.S_ITS ---
PROCEDURE: US RENAL DOPPLER INDICATIONS: NEW ONSET HYPERTENSION TECHNIQUE: Real time scanning was performed of both kidneys, followed by Color and pulsed Doppler interrogation of the renal vessels. COMPARISON: None. FINDINGS: Aortic peak systolic velocity: 66 cm/s. Right side: Muñoz-scale imaging: Kidney is 7.3 cm long. No hydronephrosis. No nephrolithiasis. Renal cortex is normal in echogenicity. No suspicious solid renal masses. Proximal renal artery peak systolic velocity: 95 cm/s. Mid renal artery peak systolic velocity: 164 cm/s. Distal renal artery peak systolic velocity: 97 cm/s. Renal vein: Patent, without thrombus. Peak renal/aortic ratio (RAR): 2.5 Left side: Muñoz-scale imaging: Kidney is 8.9 cm long. No hydronephrosis. No nephrolithiasis. Renal cortex is normal in echogenicity. No suspicious solid renal masses. Proximal renal artery peak systolic velocity: 182 cm/s. Mid-renal artery peak systolic velocity: 197 cm/s. Distal renal artery peak systolic velocity: 110 cm/s. Renal vein: Patent, without thrombus. Peak renal/aortic ratio (RAR): 3.0 Incidental left hepatic simple cyst measures 3.5 x 5.1 x 4.1 cm. IMPRESSION: Stenosis at the left mid renal artery approaches 60% by peak systolic velocity criteria. Consider CT/MR catheter angiogram for further evaluation. Approved by: Graham Barr M.D. on 05/03/2024 at 16:15
== END ==
PROVIDERS: PCP Physician Assistant; Referring Provider Physician Assistant; Visit Provider Physician Assistant
DX: I12.9 Hypertensive chronic kidney disease with stage 1 through stage 4 chronic kidney disease, or unspecified chronic kidney disease (principal); N18.30 Chronic kidney disease, stage 3 unspecified; I70.1 Atherosclerosis of renal artery; K76.89 Other specified diseases of liver
CPT/HCPCS: 93975

== ENCOUNTER 2024-05-15 14:05 | Observation (INO) | payer MEDICARE, SELFPAY ==
[2024-05-15] VITALS (23 sets, daily range): BP systolic 148–198; BP diastolic 65–87; PULSE 62–90; RESP 14–27; TEMP 36.1–36.9; O2SAT 93–99; BMI 31.3
--- NOTE | 2024-05-15 14:26 | PC.NURSE ---
At 1424 pt hit call button complaining of mid chest pain/ heart burn. States the pain radiates up into her head. spring [employer] set up technician obtaining EKG.
--- NOTE | 2024-05-15 14:31 | EKG_ITS ---
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
--- NOTE | 2024-05-15 15:26 | DI.RAD.S_ITS ---
PROCEDURE: XR CHEST 1V INDICATIONS: chest pain TECHNIQUE: One view of the chest was acquired. COMPARISON: [facility], CR, XR CHEST 1V, 03/10/2024, 17:52. FINDINGS: Surgical changes and devices: None. Lungs and pleura: Minimal appearance of bibasilar opacities. Mediastinum: Mediastinal contours appear normal. Heart size is prominent. Bones and chest wall: No suspicious bony lesions. Overlying soft tissues appear unremarkable. IMPRESSION: Minimal bibasilar opacities which may represent atelectasis versus minimal dependent fluid. Dictated by: Matilda Salmon M.D. on 05/15/2024 at 15:59 Approved by: Matilda Salmon M.D. on 05/15/2024 at 16:00
--- NOTE | 2024-05-15 15:27 | PC.NURSE ---
Triage nurse made Dr. Vazquez aware of pt's symptoms upon arrival to ED, no orders placed. Dr. Vazquez then made aware of pt's episode of heart burn/episgastric pain. No orders at this time. At 1525 RN placed nurse initiated orders. Pt remains free of any neuro symptoms while here in ED. Heart burn is subsiding for patient.
[2024-05-15 15:33] LABS: Add Manual Diff / Slide Review NO; Basophils Absolute Auto 100 /uL (0-100); Basophils Percent Auto 0.9 % (0-2); Eosinophils Absolute Auto 200 /uL (0-450); Eosinophils Percent Auto 3.6 % (2-4); Hematocrit 40.8 % (36-46); Hemoglobin 13.7 g/dL (12.0-16.0); Lymphocytes Absolute Auto 1900 /uL (1100-4500); Lymphocytes Percent Auto 30.6 % (25-40); Mean Corpuscular HGB Conc 33.7 % (30-36); Mean Corpuscular Hemoglobin 32.5 PG (26-34); Mean Corpuscular Volume 96.6 fL (80-100); Monocytes Absolute Auto 700 /uL (0-900); Monocytes Percent Auto 10.9 % (3-14); Neutrophils Absolute Auto 3400 /uL (1500-7000); Platelet Count 341 X10^3/uL (150-400); Red Blood Cell Count 4.23 X10^6/uL (4.0-5.2); White Blood Cell Count 6.2 X10^3/uL (4.5-11.0)
[2024-05-15 15:34] LABS: INR 0.9 (0.9-1.3); Prothrombin Time 10.4 SECONDS (9.4-12.5)
[2024-05-15 15:36] LABS: PTT Partial Thromboplastin Tim 30 SECONDS (25.1-36.5)
[2024-05-15 15:39] LABS: Alanine Aminotransferase 22 IU/L (<35); Albumin 4.5 g/dL (3.5-5.0); Albumin Globulin Ratio 1.5 (1.0-2.8); Alkaline Phosphatase 74 U/L (38-126); Aspartate Aminotransferase 34 IU/L (14-36); BUN Creatinine Ratio 19.6 (6-22); Bilirubin Total 0.5 mg/dL (0.2-1.3); Blood Urea Nitrogen 21 mg/dL (7-17); Calcium 9.3 mg/dL (8.4-10.2); Carbon Dioxide 26 mmol/L (22-32); Chloride 102 mmol/L (98-107); Creatine Kinase 96 U/L (30-135); Estimated Glomerular Filt Rate 52 mL/min (>60); Glucose 101 mg/dL (80-110); HEMOLYSIS < 15 (0-50); Lipase 121 U/L (23-300); Potassium 4.2 mmol/L (3.4-5.1); Sodium 138 mmol/L (137-145); Total Protein 7.5 g/dL (6.3-8.2)
[2024-05-15 15:50] LABS: NT-proBNP (BNP-Adult 18+) 117 pg/mL (<450); Troponin I < 0.012 ng/mL (0.01-0.034)
--- NOTE | 2024-05-15 16:22 | ED_ITS ---
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 Reports at about 2:00 p.m. this afternoon she had 5-10 minutes of difficulty with word finding. She does not have a migraine aura nausea or vomiting she does have a little bit of a headache although this is not unusual for her. She did not notice any numbness or weakness. She was seen here on March 102023 with transient visual disturbance, concern of migraine versus TIA. CT angiogram was performed showed disease in the left vertebral artery left subclavian atherosclerosis and atherosclerotic disease diffusely see below.: on March 10, patient has CT angio head and neck with significant findings.: IMPRESSION: There is poor opacification of the mid left vertebral artery. Contrast seen in the distal portion of the left vertebral artery is likely from retrograde flow. This may be due to thromboembolic disease versus dissection, acuity indeterminate. There is moderate atherosclerotic disease of the left subclavian. Lower grade atherosclerotic disease is seen elsewhere. No large vessel occlusion otherwise. If there is high concern for infarct, consider MRI. Where visualized, the ophthalmic arteries appear patent At that visit, there was a discussion held with stroke Neurology and they recommended aspirin. The recommendation was for full-dose aspirin on that day and then 81 mg daily. She was subsequently seen on the 21 of March with transient visual disturbance, CT was negative and she was discharged to home. She returns today with the above symptoms. She tells me that she may have forgotten her aspirin for a few days. Also tells me that she has a history of renal artery stenosis and he is intolerant of statins has not been on a statin.. she did take 160 mg of aspirin today prior to coming in. On Anticoagulants: No Related Data Home Medications Medication Instructions Recorded Confirmed CYANOCOBALAMIN (VITAMIN B-12) 1,000 mcg PO QDAY ##0 03/16/11 05/15/24 (Vitamin B-12) [CO Q 10] 1 tab PO QAM ##0 05/05/16 05/15/24 [FISH OIL] 1 tab PO QAM ##0 05/05/16 05/15/24 Previous Rx's Medication Instructions Recorded aspirin 81 mg tablet,delayed 81 mg PO DAILY #30 tabs 05/17/24 release clopidogrel 75 mg tablet 75 mg PO DAILY #20 tabs 05/17/24 Allergies Allergy/AdvReac Type Severity Reaction Status Date / Time omeprazole [OMEPRAZOLE] Allergy Severe chest pain Verified 03/10/24 13:12 diclofenac [DICLOFENAC] Allergy Mild chest pain Verified 03/10/24 13:12 metoprolol [METOPROLOL] AdvReac Mild mentally Verified 03/10/24 13:12 disconnected niacin [NIACIN] AdvReac Mild headache Verified 03/10/24 13:12 NSAIDS (Non-Steroidal AdvReac Mild sensitivity Verified 03/10/24 13:12 Anti-Inflamma [NSAIDS (NON-STEROIDAL ANTI-INFLAMMA] pravastatin [PRAVASTATIN] AdvReac Mild leg Verified 03/10/24 13:12 pain/hematuria ranitidine [RANITIDINE] AdvReac Mild mental Verified 03/10/24 13:12 issues Review of Systems Hematologic/Lymphatic On Anticoagulants: No Patient History Medical History Hyperlipidemia Statin intolerance Smoker Vision abnormalities Muscle tightness Leg pain Right hip flexor tightness (~2014) Actinic keratosis (~2006) Chickenpox (~1946) Measles (~1946) Mumps (~1946) Vitreous detachment, bilateral Cataract (~2013) Microscopic hematuria Cold sensitivity Hyperlipidemia Blocked tear duct Maki's esophagus (~2004) Hx of migraines (~2012) History of anemia (~2010) Reactive airway disease Anxiety Asymptomatic microscopic hematuria Degenerative cervical disc Surgical History Anesthesia History of thumb surgery (~2009) History of endoscopy History of facelift History of cataract removal with insertion of prosthetic lens (~2013) History of cystoscopy Status post tubal ligation (~1984) Family History Brother Diabetes mellitus High cholesterol Father Diabetes mellitus High cholesterol Grandfather Heart disease Grandmother Cancer Mother Diabetes mellitus Mental health problem History of breast cancer Social History household members: none Smoking Status: Former smoker Tobacco: How many years used: 38 alcohol intake: never Smoking Status: Former smoker alcohol intake frequency: 0-2 drinks per day Exam Narrative Exam Narrative: Alert appears to be in no distress Initial Vital Signs Initial Vital Signs: Vital Signs Pulse Rate 77 05/15/24 14:14 Respiratory Rate 21 05/15/24 14:14 Pulse Oximetry 99 05/15/24 14:14 Eyes Other: mild horizontal nystagmus on extraocular movement exam pupils are equal and react Neck Other: neck is supple, no carotid bruit Resp Other: equal breath sounds throughout Cardio Other: regular rhythm and rate she has a systolic murmur Neuro Cranial Nerves: CN's II-XI intact bilaterally, PERRL and tongue midline Cognition: normal cognition Speech: speech normal Motor: strength 5/5 throughout Sensory Exam: no sensory deficits noted Course Orders Ordered: Discontinued Medications Acetaminophen (Acetaminophen 325 Mg Tablet) 650 mg PO Q6H PRN PRN Reason: Fever/Mild Pain (1-3) Last Admin: 05/15/24 21:37 Dose: 486.5 mg Documented By: NANCY Albuterol (Albuterol 2.5 Mg/3 Ml Neb (Adult)) 2.5 mg INH Q4H PRN PRN Reason: Shortness Of Breath Aspirin (Aspirin Ec 81 Mg Tablet) 162 mg PO NOW ONE Stop: 05/15/24 19:27 Last Admin: 05/15/24 19:31 Dose: 162 mg Documented By: Aspirin (Aspirin Ec 81 Mg Tablet) 81 mg PO DAILY [facility] Last Admin: 05/17/24 09:17 Dose: 81 mg Documented By: Admin: 05/16/24 09:33 Dose: 81 mg Documented By: TITUS Calcium Carbonate (Calcium Carbonate 500 Mg Tab) 1,000 mg PO Q4HR PRN PRN Reason: Dyspepsia Last Admin: 05/16/24 14:27 Dose: 500 mg Documented By: TITUS Clopidogrel Bisulfate (Clopidogrel 75 Mg Tablet) 300 mg PO NOW ONE Stop: 05/15/24 19:27 Last Admin: 05/15/24 19:32 Dose: 300 mg Documented By: Clopidogrel Bisulfate (Clopidogrel 75 Mg Tablet) 75 mg PO DAILY [facility] Last Admin: 05/17/24 09:17 Dose: 75 mg Documented By: Admin: 05/16/24 09:33 Dose: 75 mg Documented By: TITUS Cyanocobalamin (Cyanocobalamin (Vitamin B-12) 500 Mcg Tablet) 1,000 mcg PO DAILY [facility] Last Admin: 05/17/24 09:17 Dose: 1,000 mcg Documented By: Admin: 05/16/24 09:32 Dose: 1,000 mcg Documented By: TITUS Enoxaparin Sodium (Enoxaparin 40 Mg/0.4 Ml Syringe) 40 mg SUBCUT DAILY [facility] Admin: 05/17/24 09:18 Dose: Not Given Documented By: Admin: 05/16/24 09:33 Dose: 40 mg Documented By: TITUS Naloxone HCl (Naloxone 0.4 Mg/Ml Vial) 0.2 mg IV Q2MIN PRN PRN Reason: Opiate Reversal Non-Formulary Medication (Albuterol Sulfate) 2 inhalation INHALATION Q4H PRN PRN Reason: shortness of breath Ondansetron HCl (Ondansetron 4 Mg Odt) 4 mg PO Q8HR PRN PRN Reason: Nausea And Vomiting Sodium Chloride (Sodium Chloride 0.9% Flush) 10 ml IV PRN PRN PRN Reason: Flush Sodium Chloride (Sodium Chloride 0.9% Flush) 10 ml IV BID [facility] Admin: 05/17/24 09:18 Dose: 10 ml Documented By: Admin: 05/16/24 20:36 Dose: Not Given Documented By: Admin: 05/16/24 09:33 Dose: 10 ml Documented By: TITUS Consultations Consultation #1: discussed with stroke Neurology at the Located within [facility], Dr.yan Skelton. recommends completion of TIA workup with echocardiogram, MRI, and ambulatory heart monitor on discharge. Recommended permissive hypertension over the next 24 hours keeping blood pressure less than 220 systolic. Loaded aspirin 325 today and Plavix 300 mg today, 3 weeks of dual antiplatelet with aspirin 81 a day and Plavix 75 mg daily. Possibly retry statin with rosuvastatin and CO Q a 300 mg daily to decrease myalgias. Otherwise lipid Clinic referral to manage hyperlipidemia Vital Signs Vital signs: Vital Signs - 8 hr 05/15/24 14:14 05/15/24 14:15 05/15/24 14:30 Temperature 98.4 F Pulse Rate 77 69 Respiratory Rate 21 16 Blood Pressure 189/77 H 174/73 H Pulse Oximetry 99 99 Oxygen Delivery Method Room Air 05/15/24 14:30 05/15/24 15:00 05/15/24 15:01 Temperature Pulse Rate 72 74 68 Respiratory Rate 18 18 14 Blood Pressure Pulse Oximetry 97 97 98 Oxygen Delivery Method 05/15/24 15:01 05/15/24 15:30 05/15/24 15:30 Temperature Pulse Rate 78 Respiratory Rate 19 Blood Pressure 171/74 H 172/75 H Pulse Oximetry 96 Oxygen Delivery Method 05/15/24 16:00 05/15/24 16:30 05/15/24 16:47 Temperature Pulse Rate 64 74 90 Respiratory Rate 18 27 H 20 Blood Pressure Pulse Oximetry 98 99 98 Oxygen Delivery Method 05/15/24 16:47 05/15/24 17:00 05/15/24 17:01 Temperature Pulse Rate 62 Respiratory Rate 14 Blood Pressure 162/70 H 171/87 H Pulse Oximetry 98 Oxygen Delivery Method 05/15/24 17:01 05/15/24 17:05 05/15/24 17:05 Temperature Pulse Rate 80 69 Respiratory Rate 18 15 Blood Pressure 148/67 H Pulse Oximetry 98 98 Oxygen Delivery Method 05/15/24 17:23 05/15/24 17:23 05/15/24 17:30 Temperature Pulse Rate 85 75 Respiratory Rate 16 Blood Pressure 168/74 H Pulse Oximetry 94 98 Oxygen Delivery Method 05/15/24 17:30 05/15/24 17:59 05/15/24 18:00 Temperature Pulse Rate 81 Respiratory Rate 19 Blood Pressure 167/69 H 173/74 H Pulse Oximetry 93 Oxygen Delivery Method 05/15/24 18:05 05/15/24 18:08 05/15/24 18:08 Temperature Pulse Rate 89 68 Respiratory Rate 15 Blood Pressure 174/73 H Pulse Oximetry 98 Oxygen Delivery Method 05/15/24 18:30 05/15/24 18:30 05/15/24 19:00 Temperature Pulse Rate 69 Respiratory Rate 14 Blood Pressure 153/67 H 149/67 H Pulse Oximetry 97 Oxygen Delivery Method 05/15/24 19:00 Temperature Pulse Rate 71 Respiratory Rate 14 Blood Pressure Pulse Oximetry 97 Oxygen Delivery Method MDM - Neuro Symptoms/Deficit Lab Data Lab results narrative: reviewed 05/16/24 04:50 05/16/24 04:50 Labs: Lab Results 05/15/24 Range/Units 14:15 WBC 6.2 (4.5-11.0) X10^3/uL RBC 4.23 (4.0-5.2) X10^6/uL Hgb 13.7 (12.0-16.0) g/dL Hct 40.8 (36-46) % MCV 96.6 (80-100) fL MCH 32.5 (26-34) PG MCHC 33.7 (30-36) % RDW 13.0 (11.6-14.8) % Plt Count 341 (150-400) X10^3/uL Neut % (Auto) 54.0 (50-75) % Lymph % (Auto) 30.6 (25-40) % [place] % (Auto) 10.9 (3-14) % Eos % (Auto) 3.6 (2-4) % Baso % (Auto) 0.9 (0-2) % Neut # (Auto) 3400 (4072-5889) /uL Lymph # (Auto) 1900 (7196-2295) /uL [place] # (Auto) 700 (0-900) /uL Eos # (Auto) 200 (0-450) /uL Baso # (Auto) 100 (0-100) /uL PT 10.4 (9.4-12.5) SECONDS INR 0.9 (0.9-1.3) APTT 30 (25.1-36.5) SECONDS Sodium 138 (137-145) mmol/L Potassium 4.2 (3.4-5.1) mmol/L Chloride 102 (98-107) mmol/L Carbon Dioxide 26 (22-32) mmol/L BUN 21 H (7-17) mg/dL Creatinine 1.07 H (0.52-1.04) mg/dL Estimated GFR 52 L (>60) mL/min BUN/Creatinine Ratio 19.6 (6-22) Glucose 101 (80-110) mg/dL Calcium 9.3 (8.4-10.2) mg/dL Magnesium 2.0 (1.6-2.3) mg/dL Total Bilirubin 0.5 (0.2-1.3) mg/dL AST 34 (14-36) IU/L ALT 22 (<35) IU/L Alkaline Phosphatase 74 (38-126) U/L Total Creatine Kinase 96 (30-135) U/L Troponin I < 0.012 (0.01-0.034) ng/mL NT-Pro-B Natriuret Pep 117 (<450) pg/mL Total Protein 7.5 (6.3-8.2) g/dL Albumin 4.5 (3.5-5.0) g/dL Globulin 3.0 (1.7-4.1) g/dL Albumin/Globulin Ratio 1.5 (1.0-2.8) Lipase 121 (23-300) U/L Urine Dip Bedside Urine Glucose Negative Bedside Urine Bilirubin - Negative Bedside Urine Ketone - Negative Urine Specific [place] 1.010 Bedside Urine Occult Blood - Negative Bedside Urine pH 7.5 Bedside Urine Protein - Negative Bedside Urine Urobilinogen - Negative Bedside Urine Nitrite - Negative Bedside Urine Leukocytes - Negative Esterase Imaging Data CT scan - head: My Impression: independently reviewed CT head, no acute finding Radiologist's Impression: radiology report reviewed, no acute CT angio head and neck: Radiologist's Impression: [address] [address] [address] Scan Report Signed Patient: Barby Carvalho MR#: [id number] : 1940 Acct:[id number] Age/Sex: 84 / F Date of Service: 05/15/24 Loc: ED Accession Number: [id number] Procedure: CT angio head and neck Ordering Provider: Ar Vazquez MD PROCEDURE: CT ANGIO HEAD AND NECK INDICATIONS: tia TECHNIQUE: After the administration of intravenous contrast, 1 mm thick sections acquired from the aortic arch through the [place]. 3-dimensional rekvfjt-ozxnvyvji-zcqotfncbr (MIP) and/or volume rendering reformats were acquired of the central intracranial vasculature and neck separately. For radiation dose reduction, the following was used: automated exposure control, adjustment of mA and/or kV according to patient size. COMPARISON: [facility], CT, CT HEAD/BRAIN WO CON, 05/15/2024, 17:04. [facility], CT, CT ANGIO HEAD AND NECK, 03/10/2024, 15:27. FINDINGS: Image quality: Limited by bolus timing, with venous contamination. BRAIN: CSF spaces: Ventricles are normal in size and shape. Basal cisterns are patent. No extra-axial fluid collections. Brain: No significant abnormality of the brain can be seen. Skull and face: Calvarium and facial bones appear intact, without suspicious lesions. Orbits appear normal. Sinuses: Sinuses and mastoids are clear. HEAD CT ANGIOGRAPHY: Anterior circulation: Intracranial internal carotid arteries demonstrate generalized atherosclerotic irregularity and calcification, yet without a johanna hemodynamically significant stenosis.. The flow within the paired anterior cerebral arteries is normal and symmetric. The flow within the middle cerebral arteries is normal and symmetric. The anterior communicating artery is not well seen. No aneurysms are seen. Posterior circulation: Visualized portions of the vertebral arteries demonstrate normal caliber, and join to form a normal appearing basilar artery. Flow within the posterior cerebral arteries is normal and symmetric. No aneurysms are seen. NECK CT ANGIOGRAPHY: Carotid system: The great vessels demonstrate a conventional anatomy as they arise from the aortic arch. The origins of the common carotid arteries appear patent. The common carotid arteries demonstrate normal caliber and courses. The bifurcation regions demonstrate atherosclerotic irregularity and calcification. Within the right proximal internal carotid artery, there is up to 50% narrowing. No hemodynamically significant stenosis is seen on the left. The more distal internal carotid arteries demonstrate normal course and caliber. Posterior circulation: The origins of the vertebral arteries both appear widely patent. The right vertebral artery is dominant to the left. Within the left V2 segment, there is an area of near complete stenosis, as on series 4 image 231. Soft tissues: Visualized neck soft tissues demonstrate no suspicious abnormalities. Bones: No suspicious bony lesions. Visualized cervical spine appears normally aligned. At least moderate cervical spine degenerative change can be seen. IMPRESSION: No significant intracranial arterial abnormality is seen. Up to 50% narrowing seen involving the right proximal internal carotid artery. Focal area of near complete stenosis involving the left V2 segment. The flow within the left vertebral artery is overall improved compared to the prior CT angiogram, however. Any quantitative measurements of stenosis were performed using NASCET criteria. Dictated by: Dixon Andrade M.D. on 05/15/2024 at 16:30 Approved by: Dixon Andrade M.D. on 05/15/2024 at 16:34 ECG Data Interpretation: ECG shows normal sinus rhythm no acute ST segment changes possible old inferior infarct MDM Narrative Medical decision making narrative: 84-year-old female with hyperlipidemia and known atherosclerotic vascular disease including involving the neck. Presenting today with symptoms that are likely transient ischemic attack. She has returned to baseline. Has recently had a couple of presentations that were attributed to migraine that may also be TIA. She is hypertensive, she was not taking her aspirin with a started, workup thus far does not suggest stroke. I think this is likely a transient ischemic attack and have started Plavix and aspirin on the advice of stroke Neurology and patient should be admitted to the hospitalist service to complete TIA workup Discharge Plan Departure Patient Disposition: Admitted As Inpatient Clinical Impression: Transient ischemic attack Admit Date/Time: 05/15/24 20:09 Admit Provider: Erika Arzola
--- NOTE | 2024-05-15 16:56 | DI.CT.S_ITS ---
PROCEDURE: CT ANGIO HEAD AND NECK INDICATIONS: tia TECHNIQUE: After the administration of intravenous contrast, 1 mm thick sections acquired from the aortic arch through the [place]. 3-dimensional ltfepmy-denmvlnmu-cjfohljflh (MIP) and/or volume rendering reformats were acquired of the central intracranial vasculature and neck separately. For radiation dose reduction, the following was used: automated exposure control, adjustment of mA and/or kV according to patient size. COMPARISON: [facility], CT, CT HEAD/BRAIN WO CON, 05/15/2024, 17:04. [facility], CT, CT ANGIO HEAD AND NECK, 03/10/2024, 15:27. FINDINGS: Image quality: Limited by bolus timing, with venous contamination. BRAIN: CSF spaces: Ventricles are normal in size and shape. Basal cisterns are patent. No extra-axial fluid collections. Brain: No significant abnormality of the brain can be seen. Skull and face: Calvarium and facial bones appear intact, without suspicious lesions. Orbits appear normal. Sinuses: Sinuses and mastoids are clear. HEAD CT ANGIOGRAPHY: Anterior circulation: Intracranial internal carotid arteries demonstrate generalized atherosclerotic irregularity and calcification, yet without a johanna hemodynamically significant stenosis.. The flow within the paired anterior cerebral arteries is normal and symmetric. The flow within the middle cerebral arteries is normal and symmetric. The anterior communicating artery is not well seen. No aneurysms are seen. Posterior circulation: Visualized portions of the vertebral arteries demonstrate normal caliber, and join to form a normal appearing basilar artery. Flow within the posterior cerebral arteries is normal and symmetric. No aneurysms are seen. NECK CT ANGIOGRAPHY: Carotid system: The great vessels demonstrate a conventional anatomy as they arise from the aortic arch. The origins of the common carotid arteries appear patent. The common carotid arteries demonstrate normal caliber and courses. The bifurcation regions demonstrate atherosclerotic irregularity and calcification. Within the right proximal internal carotid artery, there is up to 50% narrowing. No hemodynamically significant stenosis is seen on the left. The more distal internal carotid arteries demonstrate normal course and caliber. Posterior circulation: The origins of the vertebral arteries both appear widely patent. The right vertebral artery is dominant to the left. Within the left V2 segment, there is an area of near complete stenosis, as on series 4 image 231. Soft tissues: Visualized neck soft tissues demonstrate no suspicious abnormalities. Bones: No suspicious bony lesions. Visualized cervical spine appears normally aligned. At least moderate cervical spine degenerative change can be seen. IMPRESSION: No significant intracranial arterial abnormality is seen. Up to 50% narrowing seen involving the right proximal internal carotid artery. Focal area of near complete stenosis involving the left V2 segment. The flow within the left vertebral artery is overall improved compared to the prior CT angiogram, however. Any quantitative measurements of stenosis were performed using NASCET criteria. Dictated by: Dixon Andrade M.D. on 05/15/2024 at 16:30 Approved by: Dixon Andrade M.D. on 05/15/2024 at 16:34
--- NOTE | 2024-05-15 16:56 | DI.CT.S_ITS ---
PROCEDURE: CT HEAD/BRAIN WO CON INDICATIONS: tia TECHNIQUE: Noncontrast 4.5 mm thick angled axial sections acquired from the foramen magnum to the vertex, with coronal and sagittal reformats. For radiation dose reduction, the following was used: automated exposure control, adjustment of mA and/or kV according to patient size. COMPARISON: [facility], CT, CT HEAD/BRAIN WO CON, 09/30/2022, 23:13. [facility], CT, CT HEAD/BRAIN WO CON, 03/10/2024, 15:27. [facility], CT, CT ANGIO HEAD AND NECK, 03/10/2024, 15:27. [facility], CT, CT ANGIO HEAD AND NECK, 05/15/2024, 17:04. [facility], CT, CT HEAD/BRAIN WO CON, 03/21/2024, 18:59. FINDINGS: Image quality: Diagnostic. CSF spaces: Basal cisterns are patent. No extra-axial fluid collections. The ventricles are symmetric in size and shape. Brain: No intracranial bleeds or masses. There is cerebral volume loss for age, with resultant ventricular and sulcal prominence. There are periventricular and deep white matter chronic small vessel ischemic changes. There is intracranial internal carotid artery atherosclerosis. Symmetric calcification can be seen involving the basal ganglia, which is considered to be normal for age. Skull and face: Calvarium and visualized facial bones appear intact, without suspicious lesions. Sinuses: Visualized sinuses and mastoids are clear. IMPRESSION: No acute intracranial hemorrhage is seen. No acute intracranial pathology. If there is strong clinical suspicion for an acute stroke, please consider a brain MRI for further evaluation, as it is more sensitive (assuming that there is no contraindication to MRI). Dictated by: Dixon Andrade M.D. on 05/15/2024 at 16:38 Approved by: Dixon Andrade M.D. on 05/15/2024 at 16:39
--- NOTE | 2024-05-15 17:29 | PC.NURSE ---
CT staff notified RN that after IV contrast pt began to have some warmth and tightness in her neck. Pt brought back to room, vitals signs obtained, Dr. Vazquez aware. Pt states symptoms have improved. RN told pt to push call light if symptoms return or worsen.
[2024-05-15] MEDS: ASPIRIN EC 81 MG TABLET 162 MG PO (19:31)
[2024-05-15] MEDS: CLOPIDOGREL 75 MG TABLET 300 MG PO (19:32)
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
--- NOTE | 2024-05-15 20:50 | DI.ECHO.S_ITS ---
[facility]---------+ [facility] : : [address] : : [place] : : [id number] : : Phone: [phone] Echocardiogram Report + + :Name: IZABEL LOPEZ Study Date: 05/16/2024 Height: 58 in : :[facility] ReadingLocation: Weight: 150 lb : : Gender: Female BSA: 1.6 m2 : :: 1940 Age: 84 yrs BP: 138/62 mmHg: :Reason For Study: TIA : :Ordering Physician: TRACY, : :CHIN BOWER Performed By: Mireya Mcintyre : :Referring: CHIN MOLINA MD : + + Interpretation Summary 1. The left ventricular contractility is normal. Estimate ejection fraction is greater than 60% with no segmental wall motion abnormalities. No LVH. Impaired relaxation 2. The right ventricular contractility is borderline. 3. All cardiac chambers are of normal size. 4. No significant valvular abnormalities. 5. No obvious intracardiac shunts. 6. No obvious intracardiac masses nor thrombi. 7. No hemodynamically significant pericardial effusion. 8. Low right-sided filling pressures. 9. A circular hypoechogenic density noted measuring approximately 2 x 3 cm in the liver. Conclusion: Normal left ventricular systolic function with borderline right ventricular systolic function. No significant valvular abnormalities. Hypoechogenic density noted in the liver of unclear significance. Procedure: The study quality was technically adequate. A two-dimensional transthoracic echocardiogram with color flow and Doppler was performed. There is no prior echocardiogram noted for this patient. The patient was in sinus rhythm with heart rates between 65-80 bpm during the exam. Left Ventricle: The left ventricular cavity is small. There is normal left ventricular wall thickness. The ejection fraction is estimated to be 60-65%. Right Ventricle: The right ventricle is normal size. Right ventricular systolic function is borderline reduced. Atria: The left atrial size is normal. Right atrial size is normal. There is no Doppler evidence for an interatrial shunt. Mitral Valve: The mitral valve leaflets appear to open well. There is no mitral regurgitation noted. Aortic Valve: The aortic valve is not well visualized. The aortic valve is grossly normal. The aortic valve opens well. There is no aortic valve stenosis. No aortic regurgitation is present. Tricuspid Valve: The tricuspid valve leaflets are thin and pliable. There is trace tricuspid regurgitation. The right ventricular systolic pressure is estimated to be at least 25 mmHg based on an estimated right atrial pressure of 3 mm Hg. Pulmonic Valve: The pulmonic valve leaflets are thin and pliable; valve motion is normal. There is a trace or physiologic amount of pulmonic regurgitation. Great Vessels: The aortic root is normal size. The dimensions of the ascending aorta are normal. The IVC is of normal diameter and collapses greater than 50% with a sniff. This suggests a low right atrial pressure of 3 mm Hg. Pericardium/ Pleura There is no pericardial effusion. There is no pleural effusion. MMode/2D Measurements & Calculations LVIDd: 3.2 cm LVOT diam: 2.0 cm LVIDs: 2.1 cm Ao root diam: 2.6 cm FS: 35.1 % asc Aorta Diam: 3.1 cm EPSS: 0.38 cm Ao Arch Diam (Prox Trans): 2.8 cm IVSd: 1.0 cm LVPWd: 0.85 cm LV buchanan. diameter/BSA (cm/m^2): 2.0 LV sys. diameter/BSA (cm/m^2): 1.3 LA A2 area: 10.0 cm2 RA long axis: 4.2 cm LA A4 area: 9.7 cm2 RA area: 8.6 cm2 LA length (vol): 4.2 cm RA vol: 15.1 ml LA vol: 19.4 ml RA : 9.4 ml/m2 LA vol index: 12.1 ml/m2 IVC diam: 1.5 cm RVD1 (basal): 2.6 cm RVD2 (mid): 1.9 cm TAPSE: 1.5 cm Doppler Measurements & Calculations Ao V2 max: 111.1 cm/sec LVOT Max Doyle: 84.7 cm/sec Ao V2 mean: 75.0 cm/sec LV V1 max P.9 mmHg Ao max P.9 mmHg LV V1 VTI: 18.0 cm Ao mean P.5 mmHg JUNIE(I,D): 2.6 cm2 Ao V2 VTI: 21.8 cm JUNIE(V,D): 2.4 cm2 sev ratio: 0.82 JUNIE indexed to BSA (cm^2/m^2): 1.6 MV E max doyle: 63.9 cm/sec TR max doyle: 232.7 cm/sec MV A max doyle: 87.7 cm/sec TR max P.7 mmHg MV E/A: 0.73 PA V2 max: 77.5 cm/sec Med Peak E' Doyle: 6.8 cm/sec PA V2 mean: 55.5 cm/sec E/E' med: 9.4 PA mean P.3 mmHg Lat Peak E' Doyle: 5.9 cm/sec PA pr(Accel): 23.8 mmHg E/E' lat: 10.9 E/e' average: 10.1 MV dec time: 0.23 sec SV(LVOT): 57.5 ml Reading Physician:HENNY
--- NOTE | 2024-05-15 20:51 | DI.MRI.S_ITS ---
PROCEDURE: MR HEAD/BRAIN WO CON INDICATIONS: confusion TECHNIQUE: Non-contrast axial T1 spin echo, axial T2 fast spin echo, sagittal and axial FLAIR, coronal T2 fast spin echo, axial gradient echo, axial diffusion and ADC through the brain. COMPARISON: [facility], CT, CT ANGIO HEAD AND NECK, 05/15/2024, 17:04. [facility], CT, CT HEAD/BRAIN WO CON, 05/15/2024, 17:04. FINDINGS: Image quality: Excellent. CSF spaces: Ventricles appear symmetric in size and shape. Basal cisterns are patent. No extra-axial fluid collections. Brain: No intracranial bleeds or mass effects. There is cerebral volume loss for age. There are mild, age-appropriate periventricular and deep white matter chronic small vessel ischemic changes. Brainstem appears normal. Diffusion-weighted images show no acute infarct. No chronic ischemic insults. Normal intravascular flow voids are present. Skull and face: Calvarial bone marrow is normal in signal. Orbits are normal. Sinuses: Sinuses and mastoids are clear. Other: Note is made of cervical spondylosis with canal stenosis. IMPRESSION: 1. Unremarkable brain MRI for patient age. Age-related volume loss, mild, age-appropriate small-vessel ischemic change. No acute intracranial process. 2. Incidental note made of cervical spondylosis with likely cervical canal stenosis. Dictated by: Johan Little M.D. on 05/16/2024 at 11:51 Approved by: Johan Little M.D. on 05/16/2024 at 11:55
[2024-05-15] MEDS: ACETAMINOPHEN 325 MG TABLET 650 MG PO (21:37)
[2024-05-16 00:24] VITALS: BP 147/60; PULSE 71; RESP 16; TEMP 36.6; O2SAT 97
--- NOTE | 2024-05-16 01:36 | P.HP_ITS ---
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 At that time her symptoms were also related with her migraine headaches. Pt states she has not been taking her ASA regularly, but tried to take it when she can, and she is yet to make her NS appt. Today around 2 pm she was by herself at her home, when she noted word finding difficulty, and she called her son, and EMS called for stroke concern. Pt had no other neurologic deficits, including: Vision loss or double vision, weakness of any extremity, balance problems, or sensory deficits, or speech problems. EMS came to her home took her BP, and told her it was ok for pt to come to ED by asking her friend / neighbor to drive her to ED. She states her word finding difficulty continued, decreasing in severity, for about 30 to 45 mins, and were completely reversed by the time she reached ED. In ED her NIHSS was zero CT head : no acute changes CTA hd and neck: 50 % stensosis of her R proximal ICA , and L V2 segment : completely stenosed. Troponin and BNP not elevated EKG : Sinus Rhythm No acute St- T wave changes noted [facility] Medical History (Updated 05/16/24 @ 02:53 by Erika Arzola MD) Hyperlipidemia Statin intolerance Smoker Vision abnormalities Muscle tightness Leg pain Right hip flexor tightness (~2014) Actinic keratosis (~2006) Chickenpox (~194) Measles (~194) Mumps (~194) Vitreous detachment, bilateral Cataract (~2013) Microscopic hematuria Cold sensitivity Hyperlipidemia Blocked tear duct Maki's esophagus (~2004) Hx of migraines (~2012) History of anemia (~2010) Reactive airway disease Anxiety Asymptomatic microscopic hematuria Degenerative cervical disc Surgical History Anesthesia History of thumb surgery (~2009) History of endoscopy History of facelift History of cataract removal with insertion of prosthetic lens (~2013) History of cystoscopy Status post tubal ligation (~1984) Family History Brother Diabetes mellitus High cholesterol Father Diabetes mellitus High cholesterol Grandfather Heart disease Grandmother Cancer Mother Diabetes mellitus Mental health problem History of breast cancer Social History household members: none Smoking Status: Former smoker Tobacco: How many years used: 38 alcohol intake: never Meds Home Medications and Allergies Home Medications Medication Instructions Recorded Confirmed Type CYANOCOBALAMIN (VITAMIN B-12) 1,000 mcg PO QDAY ##0 03/16/11 05/15/24 History (Vitamin B-12) [CO Q 10] 1 tab PO QAM ##0 05/05/16 05/15/24 History [FISH OIL] 1 tab PO QAM ##0 05/05/16 05/15/24 History Allergies Allergy/AdvReac Type Severity Reaction Status Date / Time omeprazole [OMEPRAZOLE] Allergy Severe chest pain Verified 03/10/24 13:12 diclofenac [DICLOFENAC] Allergy Mild chest pain Verified 03/10/24 13:12 metoprolol [METOPROLOL] AdvReac Mild mentally Verified 03/10/24 13:12 disconnected niacin [NIACIN] AdvReac Mild headache Verified 03/10/24 13:12 NSAIDS (Non-Steroidal AdvReac Mild sensitivity Verified 03/10/24 13:12 Anti-Inflamma [NSAIDS (NON-STEROIDAL ANTI-INFLAMMA] pravastatin [PRAVASTATIN] AdvReac Mild leg Verified 03/10/24 13:12 pain/hematuria ranitidine [RANITIDINE] AdvReac Mild mental Verified 03/10/24 13:12 issues Exam Vital Signs (past 8 hours): - 05/15/24 17:59 05/15/24 18:00 05/15/24 18:05 Temperature Pulse Rate 81 89 Respiratory Rate 19 Blood Pressure 173/74 H Pulse Oximetry 93 Oxygen Flow Rate 05/15/24 18:08 05/15/24 18:08 05/15/24 18:30 Temperature Pulse Rate 68 69 Respiratory Rate 15 14 Blood Pressure 174/73 H Pulse Oximetry 98 97 Oxygen Flow Rate 05/15/24 18:30 05/15/24 19:00 05/15/24 19:00 Temperature Pulse Rate 71 Respiratory Rate 14 Blood Pressure 153/67 H 149/67 H Pulse Oximetry 97 Oxygen Flow Rate 05/15/24 19:30 05/15/24 19:30 05/15/24 20:00 Temperature Pulse Rate 68 83 Respiratory Rate 23 20 Blood Pressure 152/65 H Pulse Oximetry 98 96 Oxygen Flow Rate 05/15/24 20:00 05/15/24 21:15 05/16/24 00:24 Temperature 97.0 F L 97.8 F Pulse Rate 85 71 Respiratory Rate 18 16 Blood Pressure 152/66 H 198/74 H 147/60 H Pulse Oximetry 98 97 Oxygen Flow Rate 0 0 Oxygen Delivery Method Room Air Oxygen Flow Rate 0 Objective Labs 05/16/24 04:50 05/16/24 04:50 Labs: Laboratory Results - last 24 hr 05/15/24 14:15 WBC 6.2 RBC 4.23 Hgb 13.7 Hct 40.8 MCV 96.6 MCH 32.5 MCHC 33.7 RDW 13.0 Plt Count 341 Neut % (Auto) 54.0 Lymph % (Auto) 30.6 [place] % (Auto) 10.9 Eos % (Auto) 3.6 Baso % (Auto) 0.9 Neut # (Auto) 3400 Lymph # (Auto) 1900 [place] # (Auto) 700 Eos # (Auto) 200 Baso # (Auto) 100 PT 10.4 INR 0.9 APTT 30 Sodium 138 Potassium 4.2 Chloride 102 Carbon Dioxide 26 BUN 21 H Creatinine 1.07 H Estimated GFR 52 L BUN/Creatinine Ratio 19.6 Glucose 101 Calcium 9.3 Magnesium 2.0 Total Bilirubin 0.5 AST 34 ALT 22 Alkaline Phosphatase 74 Total Creatine Kinase 96 Troponin I < 0.012 NT-Pro-B Natriuret Pep 117 Total Protein 7.5 Albumin 4.5 Globulin 3.0 Albumin/Globulin Ratio 1.5 Lipase 121 Assessment & Plan Time-Based Coding :: [TOTAL MINUTES] spent with patient and on the chart (including review of chart, obtaining history, exam, reviewing outside data, placing orders, documenting exam and treatment plan, and counseling patient) on [DATE].
--- NOTE | 2024-05-16 02:28 | PM.HP.1 ---
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 At that time her symptoms were also related with her migraine headaches. Pt states she has not been taking her ASA regularly, but tried to take it when she can, and she is yet to make her NS appt. Today around 2 pm she was by herself at her home, when she noted word finding difficulty, and she called her son, and EMS called for stroke concern. Pt had no other neurologic deficits, including: Vision loss or double vision, weakness of any extremity, balance problems, or sensory deficits, or speech problems. EMS came to her home took her BP, and told her it was ok for pt to come to ED by asking her friend / neighbor to drive her to ED. She states her word finding difficulty continued, decreasing in severity, for about 30 to 45 mins, and were completely reversed by the time she reached ED. In ED her NIHSS was zero CT head : no acute changes CTA hd and neck: 50 % stensosis of her R proximal ICA , and L V2 segment : completely stenosed. Troponin and BNP not elevated EKG : Sinus Rhythm No acute St- T wave changes noted labs unremarkable Tele Stroke / [facility] consulted per ED: Dr Ricci Skelton ( neurologist) advised loading with Plavix 300 mg and ASA load to n 325 ( pt had taken 2 x 81 mg ASA [employer] STERIL[employer]ER) and to do stroke w/u including MRI brain, Echo and ambulatory cardiac monitoring ( latter at discharge) Pt was referred to Hospitalist team for further care as observation. [facility] Medical History (Updated 05/16/24 @ 02:53 by Erika Arzloa MD) Hyperlipidemia Statin intolerance Smoker Vision abnormalities Muscle tightness Leg pain Right hip flexor tightness (~2014) Actinic keratosis (~2006) Chickenpox (~194) Measles (~194) Mumps (~194) Vitreous detachment, bilateral Cataract (~2013) Microscopic hematuria Cold sensitivity Hyperlipidemia Blocked tear duct Maki's esophagus (~2004) Hx of migraines (~2012) History of anemia (~2010) Reactive airway disease Anxiety Asymptomatic microscopic hematuria Degenerative cervical disc Surgical History Anesthesia History of thumb surgery (~2009) History of endoscopy History of facelift History of cataract removal with insertion of prosthetic lens (~2013) History of cystoscopy Status post tubal ligation (~1984) Family History Brother Diabetes mellitus High cholesterol Father Diabetes mellitus High cholesterol Grandfather Heart disease Grandmother Cancer Mother Diabetes mellitus Mental health problem History of breast cancer Social History household members: none Smoking Status: Former smoker Tobacco: How many years used: 38 alcohol intake: never Meds Home Medications and Allergies Home Medications Medication Instructions Recorded Confirmed Type CYANOCOBALAMIN (VITAMIN B-12) 1,000 mcg PO QDAY ##0 03/16/11 05/15/24 History (Vitamin B-12) [CO Q 10] 1 tab PO QAM ##0 05/05/16 05/15/24 History [FISH OIL] 1 tab PO QAM ##0 05/05/16 05/15/24 History Allergies Allergy/AdvReac Type Severity Reaction Status Date / Time omeprazole [OMEPRAZOLE] Allergy Severe chest pain Verified 03/10/24 13:12 diclofenac [DICLOFENAC] Allergy Mild chest pain Verified 03/10/24 13:12 metoprolol [METOPROLOL] AdvReac Mild mentally Verified 03/10/24 13:12 disconnected niacin [NIACIN] AdvReac Mild headache Verified 03/10/24 13:12 NSAIDS (Non-Steroidal AdvReac Mild sensitivity Verified 03/10/24 13:12 Anti-Inflamma [NSAIDS (NON-STEROIDAL ANTI-INFLAMMA] pravastatin [PRAVASTATIN] AdvReac Mild leg Verified 03/10/24 13:12 pain/hematuria ranitidine [RANITIDINE] AdvReac Mild mental Verified 03/10/24 13:12 issues Review of Systems Review of Systems ROS: Yes All systems reviewed with the patient and are negative except as otherwise documented Exam Vital Signs (past 8 hours): - 05/15/24 18:30 05/15/24 18:30 05/15/24 19:00 Temperature Pulse Rate 69 Respiratory Rate 14 Blood Pressure 153/67 H 149/67 H Pulse Oximetry 97 Oxygen Flow Rate 05/15/24 19:00 05/15/24 19:30 05/15/24 19:30 Temperature Pulse Rate 71 68 Respiratory Rate 14 23 Blood Pressure 152/65 H Pulse Oximetry 97 98 Oxygen Flow Rate 05/15/24 20:00 05/15/24 20:00 05/15/24 21:15 Temperature 97.0 F L Pulse Rate 83 85 Respiratory Rate 20 18 Blood Pressure 152/66 H 198/74 H Pulse Oximetry 96 98 Oxygen Flow Rate 0 05/16/24 00:24 Temperature 97.8 F Pulse Rate 71 Respiratory Rate 16 Blood Pressure 147/60 H Pulse Oximetry 97 Oxygen Flow Rate 0 Oxygen Delivery Method Room Air Oxygen Flow Rate 0 Narrative Exam Narrative: Patient is conversant , and pleasant, answering questions appropriately, has no word finding difficulty currently. Denies any falls or hitting her head. Is sitting in bed, in NAD HEENT: AT/ NC head , EOMI, PERRL, no scleral icterus, Conjunctivae are Normal Neck is supple, no TMG, No Adenopathy Chest : CTA, BS equal, no W/R/ Rhobchi, normal resp effort. Heart RRR, no M/G/R Abd: soft , NT, ND , No HSM, BS present and WNL Ext: no edema or cyanosis, no calf tenderness bilat, pp 2 + bilat symmetric Skin: warm and dry, no rashes, no bruising Neuro: A and O x 4 . Cr N 2-12 intact, No Motor or Sensory deficits, No Drift of any extremity, no Nystagmus, Coordination WNL Psyche: Normal mood. Objective Labs 05/15/24 14:15 05/15/24 14:15 Labs: Laboratory Results - last 24 hr 05/15/24 14:15 WBC 6.2 RBC 4.23 Hgb 13.7 Hct 40.8 MCV 96.6 MCH 32.5 MCHC 33.7 RDW 13.0 Plt Count 341 Neut % (Auto) 54.0 Lymph % (Auto) 30.6 [place] % (Auto) 10.9 Eos % (Auto) 3.6 Baso % (Auto) 0.9 Neut # (Auto) 3400 Lymph # (Auto) 1900 [place] # (Auto) 700 Eos # (Auto) 200 Baso # (Auto) 100 PT 10.4 INR 0.9 APTT 30 Sodium 138 Potassium 4.2 Chloride 102 Carbon Dioxide 26 BUN 21 H Creatinine 1.07 H Estimated GFR 52 L BUN/Creatinine Ratio 19.6 Glucose 101 Calcium 9.3 Magnesium 2.0 Total Bilirubin 0.5 AST 34 ALT 22 Alkaline Phosphatase 74 Total Creatine Kinase 96 Troponin I < 0.012 NT-Pro-B Natriuret Pep 117 Total Protein 7.5 Albumin 4.5 Globulin 3.0 Albumin/Globulin Ratio 1.5 Lipase 121 Assessment & Plan Assessment and plan (1) Transient ischemic attack: Problem details: Manifesting as Word finding difficulty, in pt with TIA? Stroke Risk factors: HLD, ( statin intolerant), HTN, and Cerebral Atherosclerosis and stenosis of ICA and Vertebral A Pt has a Neurosurgery referral, she is encouraged to schedule her appt thought its in [place] per patient. Cardiac monitoring Neuro checks MRI brain ordered for the morning Echo also ordered Continue Plavix 75 mg po and ASA 81 mg po daily See HLD management below Status: Acute (2) Hyperlipidemia: Problem details: 10/31/14 10.7 10 year ascvd risk Intolerant to Statins , pt adamantly refuses to take any statin / Neurologist Tele had advised trial of Resuva statin : pt declines She does not mind continuing to take CoQ Fasting Lipid panel in the morning Qualifiers: Hyperlipidemia type: mixed hyperlipidemia Qualified Code(s): E78.2 - Mixed hyperlipidemia Status: None Time-Based Coding :: [TOTAL MINUTES] spent with patient and on the chart (including review of chart, obtaining history, exam, reviewing outside data, placing orders, documenting exam and treatment plan, and counseling patient) on [DATE].
[2024-05-16 04:40] VITALS: BP 138/62; PULSE 81; RESP 16; TEMP 36.4; O2SAT 95
[2024-05-16 05:28] LABS: Add Manual Diff / Slide Review NO; Basophils Absolute Auto 100 /uL (0-100); Basophils Percent Auto 1.1 % (0-2); Eosinophils Absolute Auto 300 /uL (0-450); Eosinophils Percent Auto 4.4 % (2-4); Hematocrit 39.1 % (36-46); Hemoglobin 13.1 g/dL (12.0-16.0); Lymphocytes Absolute Auto 2100 /uL (1100-4500); Lymphocytes Percent Auto 33.6 % (25-40); Mean Corpuscular HGB Conc 33.5 % (30-36); Mean Corpuscular Hemoglobin 32.2 PG (26-34); Monocytes Absolute Auto 600 /uL (0-900); Monocytes Percent Auto 10.6 % (3-14); Neutrophils Absolute Auto 3100 /uL (1500-7000); Neutrophils Percent Auto 50.3 % (50-75); Platelet Count 355 X10^3/uL (150-400); Red Blood Cell Count 4.08 X10^6/uL (4.0-5.2); Red Cell Distribution Width 13.3 % (11.6-14.8); White Blood Cell Count 6.1 X10^3/uL (4.5-11.0)
[2024-05-16 05:37] LABS: Prothrombin Time 11.1 SECONDS (9.4-12.5)
[2024-05-16 05:43] LABS: Blood Urea Nitrogen 16 mg/dL (7-17); Calcium 8.9 mg/dL (8.4-10.2); Carbon Dioxide 30 mmol/L (22-32); Chloride 102 mmol/L (98-107); Cholesterol 297 mg/dL (140-199); Estimated Glomerular Filt Rate 52 mL/min (>60); Glucose 86 mg/dL (80-110); HDL Cholesterol 62 mg/dL (40-60); HEMOLYSIS < 15 (0-50); LDL Cholesterol Calculated 195 mg/dL (<100); Sodium 138 mmol/L (137-145); Triglycerides 200 mg/dL (35-150)
[2024-05-16 06:13] LABS: Thyroid Stimulating Hormone 4.36 uIU/mL (0.47-4.68)
--- NOTE | 2024-05-16 06:36 | PC.NURSE ---
Pt. was admitted by Gómez Castillo RN. oriented to her room. Denies any headache, CP & other discomfort. Ambulating to the bathroom & reported that word finding was resolved. NIH assessment this morning was done , will report to day RN.
--- NOTE | 2024-05-16 07:23 | PM.PN.1 ---
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 At that time her symptoms were also related with her migraine headaches. Patient states she has not been taking her ASA regularly, but tried to take it when she can, and she is yet to make her NS appt. Today around 2 pm she was by herself at her home, when she noted word finding difficulty, and she called her son, and EMS called for stroke concern. Pt had no other neurologic deficits, including: Vision loss or double vision, weakness of any extremity, balance problems, or sensory deficits, or speech problems. EMS came to her home took her BP, and told her it was ok for pt to come to ED by asking her friend / neighbor to drive her to ED. She states her word finding difficulty continued, decreasing in severity, for about 30 to 45 mins, and were completely reversed by the time she reached ED. In ED her NIHSS was zero CT head : no acute changes CTA head and neck: 50 % stensosis of her R proximal ICA , and L V2 segment : completely stenosed. S: Overall she is doing well. She still has intermittent stuttering and word-finding difficulty. She scored a 1 based on speech and her NIH over the last 2 hours. She did have a Simmering migraine throughout the day yesterday with a 3/10 pain but has now come down to 0 over the last couple of hours. She was agreeable to stay overnight for ongoing observation. MRI was negative of her brain, echo was unremarkable. Exam Vital Signs (past 8 hours): - 05/16/24 00:24 05/16/24 04:40 Temperature 97.8 F 97.6 F Pulse Rate 71 81 Respiratory Rate 16 16 Blood Pressure 147/60 H 138/62 Pulse Oximetry 97 95 Oxygen Flow Rate 0 0 Oxygen Delivery Method Room Air Oxygen Flow Rate 0 Narrative Exam Narrative: NAD, alert and oriented. Fluent speech. Lungs are clear, normal rate and effort. Heart is regular, no murmur gallop or rub. Abdomen is soft, non distended. Extremities are free of edema. Neuro: Cranial nerves are intact, speech is essentially normal. Motor strength is 5/5 arms and legs. Objective ECG Impression: Sinus bradycardia Minimal voltage criteria for LVH, may be normal variant ( R in aVL ) Inferior infarct , age undetermined Imaging Multiple studies:: Radiologist's impression: Head CT:No acute intracranial hemorrhage is seen. No acute intracranial pathology. If there is strong clinical suspicion for an acute stroke, please consider a brain MRI for further evaluation, as it is more sensitive (assuming that there is no contraindication to MRI). Head and neck CTA: No significant intracranial arterial abnormality is seen. Up to 50% narrowing seen involving the right proximal internal carotid artery. Focal area of near complete stenosis involving the left V2 segment. The flow within the left vertebral artery is overall improved compared to the prior CT angiogram, however. Echo: Radiologist's impression: 1. The left ventricular contractility is normal. Estimate ejection fraction is greater than 60% with no segmental wall motion abnormalities. No LVH. Impaired relaxation 2. The right ventricular contractility is borderline. 3. All cardiac chambers are of normal size. 4. No significant valvular abnormalities. 5. No obvious intracardiac shunts. 6. No obvious intracardiac masses nor thrombi. 7. No hemodynamically significant pericardial effusion. 8. Low right-sided filling pressures. 9. A circular hypoechogenic density noted measuring approximately 2 x 3 cm in the liver. Conclusion: Normal left ventricular systolic function with borderline right ventricular systolic function. No significant valvular abnormalities. Hypoechogenic density noted in the liver of unclear significance. MRI - head: Radiologist's impression: 1. Unremarkable brain MRI for patient age. Age-related volume loss, mild, age-appropriate small-vessel ischemic change. No acute intracranial process. 2. Incidental note made of cervical spondylosis with likely cervical canal stenosis. Labs 05/16/24 04:50 05/16/24 04:50 Labs: Laboratory Results - last 24 hr 05/15/24 05/16/24 14:15 04:50 WBC 6.2 6.1 RBC 4.23 4.08 Hgb 13.7 13.1 Hct 40.8 39.1 MCV 96.6 96.0 MCH 32.5 32.2 MCHC 33.7 33.5 RDW 13.0 13.3 Plt Count 341 355 Neut % (Auto) 54.0 50.3 Lymph % (Auto) 30.6 33.6 [place] % (Auto) 10.9 10.6 Eos % (Auto) 3.6 4.4 H Baso % (Auto) 0.9 1.1 Neut # (Auto) 3400 3100 Lymph # (Auto) 1900 2100 [place] # (Auto) 700 600 Eos # (Auto) 200 300 Baso # (Auto) 100 100 PT 10.4 11.1 INR 0.9 1.0 APTT 30 Sodium 138 138 Potassium 4.2 4.0 Chloride 102 102 Carbon Dioxide 26 30 BUN 21 H 16 Creatinine 1.07 H 1.07 H Estimated GFR 52 L 52 L BUN/Creatinine Ratio 19.6 15.0 Glucose 101 86 Calcium 9.3 8.9 Magnesium 2.0 Total Bilirubin 0.5 AST 34 ALT 22 Alkaline Phosphatase 74 Total Creatine Kinase 96 Troponin I < 0.012 NT-Pro-B Natriuret Pep 117 Total Protein 7.5 Albumin 4.5 Globulin 3.0 Albumin/Globulin Ratio 1.5 Triglycerides 200 H Cholesterol 297 H LDL Cholesterol, Calc 195 H HDL Cholesterol 62 H Lipase 121 TSH 4.36 PFSH Medical History Hyperlipidemia Statin intolerance Smoker Vision abnormalities Muscle tightness Leg pain Right hip flexor tightness (~2014) Actinic keratosis (~2006) Chickenpox (~1946) Measles (~1946) Mumps (~1946) Vitreous detachment, bilateral Cataract (~2013) Microscopic hematuria Cold sensitivity Hyperlipidemia Blocked tear duct Maki's esophagus (~2004) Hx of migraines (~2012) History of anemia (~2010) Reactive airway disease Anxiety Asymptomatic microscopic hematuria Degenerative cervical disc Surgical History Anesthesia History of thumb surgery (~2009) History of endoscopy History of facelift History of cataract removal with insertion of prosthetic lens (~2013) History of cystoscopy Status post tubal ligation (~1984) Family History Brother Diabetes mellitus High cholesterol Father Diabetes mellitus High cholesterol Grandfather Heart disease Grandmother Cancer Mother Diabetes mellitus Mental health problem History of breast cancer Social History household members: none Smoking Status: Former smoker Tobacco: How many years used: 38 alcohol intake: never Assessment & Plan Assessment & Plan narrative: (1) Transient ischemic attack, POA. Manifesting as Word finding difficulty, in pt with TIA? Stroke Risk factors: HLD, ( statin intolerant), HTN, and Cerebral Atherosclerosis and stenosis of ICA and Vertebral A Pt has a Neurosurgery referral, she is encouraged to schedule her appt thought its in [place] per patient. Cardiac monitoring Continue Plavix 75 mg po and ASA 81 mg po daily (DAPT). See HLD management below (2) Hyperlipidemia, .POA. 10/31/14 10.7 10 year ascvd risk Intolerant to Statins , pt adamantly refuses to take any statin / Neurologist Tele had advised trial of Resuva statin : pt declines She does not mind continuing to take CoQ Fasting Lipid panel in the morning 3. HTN, POA. 4. Migraine WALTERS, POA. PLAN: -we will monitor her for another night given her persistent intermittent speech symptoms. -continue dual antiplatelet therapy, she declines statin. -Q shift NIH score. She requires a 2nd night of care to monitor her intermittent neurologic symptoms on dual antiplatelet therapy. BREN is May 17. Time-Based Coding :: [TOTAL MINUTES] spent with patient and on the chart (including review of chart, obtaining history, exam, reviewing outside data, placing orders, documenting exam and treatment plan, and counseling patient) on [DATE].
[2024-05-16 08:00] VITALS: BP 159/75; PULSE 81; RESP 16; TEMP 36.1; O2SAT 97
--- NOTE | 2024-05-16 08:40 | PT.IIE ---
Current Diagnoses Mixed hyperlipidemia (05/15/24) Transient cerebral ischemic attack, unspecified (05/15/24) Surgical History (Last Reviewed 05/16/24 @ 07:27 by Magnus Colon MD) Anesthesia History of cataract removal with insertion of prosthetic lens (~2013) History of cystoscopy History of endoscopy History of facelift History of thumb surgery (~2009) Status post tubal ligation (~1984) Medical History (Last Reviewed 05/16/24 @ 07:27 by Magnus Colon MD) Actinic keratosis (~2006) Anxiety Asymptomatic microscopic hematuria Maki's esophagus (~2004) Blocked tear duct Cataract (~2013) Chickenpox (~1946) Cold sensitivity Degenerative cervical disc History of anemia (~2010) Hx of migraines (~2012) Hyperlipidemia Hyperlipidemia Leg pain Measles (~1946) Microscopic hematuria Mumps (~1946) Muscle tightness Reactive airway disease Right hip flexor tightness (~2014) Smoker Statin intolerance Vision abnormalities Vitreous detachment, bilateral Physical Therapy Inpatient Evaluation/Re-Eval M1 PT/OT-IP Prior Functional Status Start: 05/16/24 12:29 Freq: NEEDED Status: Active Protocol: Document 05/16/24 08:40 AB (Rec: 05/16/24 12:46 AB [id number]) Medical Review Prior Functional Status Medical History Reviewed Yes Communication able to make needs known Mobility and Gait pt stated that she was independent with all mobilities and ambulation without AD Social History Household Members none Living Arrangements House Number of Floors (Floors) One Floor Number of Stairs To Enter/Railing? 4 steps B rails to enter Home Environment Standard Height Toilet,Tub/ Shower Home Equipment Straight Cane,Grab Bars In Shower M2 PT-IP Current Condition Start: 05/16/24 12:29 Freq: NEEDED Status: Active Protocol: Document 05/16/24 08:40 AB (Rec: 05/16/24 12:46 AB [id number]) Physical Therapy Current Condition Current Condition Evaluation Date 05/16/24 Treatment Diagnosis TIA; difficulty in walking Onset Date 05/15/24 M3 PT-IP Subjective Start: 05/16/24 12:29 Freq: NEEDED Status: Active Protocol: Document 05/16/24 08:40 AB (Rec: 05/16/24 12:46 AB [id number]) Subjective Physical Therapy Visit Type Type Initial Evaluation Visit Start Time 08:40 Visit Stop Time 09:00 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 0 Physical Therapy Visit Comments Patient Comments agreeable to do PT M4 PT-IP Mobility and Gait Start: 05/16/24 12:29 Freq: NEEDED Status: Active Protocol: Document 05/16/24 08:40 AB (Rec: 05/16/24 12:46 AB [id number]) PT-Bed Mobility Assessment Supine to Sit Supine to Sit Independent Sit to Supine Sit to Supine Independent PT-Transfer Assessment Sit to and From Stand Sit to and from Stand Standby Assistance,1 Person Assistance,Use of Upper Extremities Equipment Transfer Assistive Device None,Gait Belt Orthotic/Prosthetic Devices or Brace: No Comments Mobility Comments pt in bed and agreeable to do PT. obtained PLOF and home set up. supine to sit independent. no c/o dizziness . sit to stand SBA and ambulated in room SBA. agreed to do stairs. pt ambulated out in the hallway ~ 125 ft without AD SBA. presents with unsteady gait but without LOB. pt stated that she has not moved much for 1-2 days. pt completed up/down stairs using B rails SBA. pt ambulated back to her room SBA and requested to go back to the bed. independent with bed mobility. call light and table placed next to pt. no further PT needs and pt agreed. Gait Assessment Gait Gait Assistance Required: Standby Assistance Distance (Feet) 125 Able to Maintain Weight Bearing Status Yes During Gait Assistive Devices Assistive Device None,Gait Belt Orthotic/Prosthetic Devices or Brace: No Gait Deviations General Gait Pattern Ataxic,Decreased Stride Length ,Decreased Feet Clearance Factors Limiting Gait Function Factors Limiting Gait Function Decreased Activity Tolerance, Pain,Poor Balance Stair Climbing Assessment Evaluation Level of Assist On Stairs Standby Assistance Devices Stair Climbing Assistive Devices Left Railing,Right Railing Technique/Endurance Stair Climbing Direction Ascend and Descend Stair Climbing Technique Step to Step Number of Steps Climbed 3 Query Text: Stair Climbing Set # Repetitions (reps) 1 PT-Balance Assessment Sitting Balance and Reactions Static Sitting Balance Ability Normal Dynamic Sitting Balance Ability Normal Standing Balance and Reactions Static Standing Balance Ability Good Dynamic Standing Balance Ability Good Device Used without AD M5 PT-IP Objective Assessments Start: 05/16/24 12:29 Freq: NEEDED Status: Active Protocol: Document 05/16/24 08:40 AB (Rec: 03/05/25 12:46 AB [id number]) Orientation Orientation/Cognition Level of Alertness Alert Language Function Ability No Deficits Noted Safety Awareness Understands Safety Issues Memory Description No Deficits Noted Gross Range of Motion Lower Extremity ROM Assessment Within Functional Limits Strength Lower Extremity Strength Assessment Within Functional Limits Sensation Assessment Sensation Gross Sensation WNL Muscle Tone Muscle Tone WNL Yes M6 PT-IP Treatment Start: 05/16/24 12:29 Freq: NEEDED Status: Active Protocol: Document 05/16/24 08:40 AB (Rec: 05/16/24 12:46 AB [id number]) Physical Therapy Treatment Education Education Provided Safety M7 PT-IP Assessment and Plan Start: 05/16/24 12:29 Freq: NEEDED Status: Active Protocol: Document 05/16/24 08:40 AB (Rec: 05/16/24 12:46 AB [id number]) PT Summary Assessment and Plan Potential Rehabilitation Potential Good Status of Condition at Evaluation Stable Summary Impairments Balance,Gait,Activity Tolerance Assessment Summary pt is an 84 y/o F who is admitted for TIA. pt is independent with bed mobility and requiring SBA for transfers and ambulation for safety. no further PT interventions indicated at this time. Frequency of Treatment Frequency Of Treatment Discharge Recommendations To Nursing Amount of Assist Needed Standby Assistance Discharge Recommendations PT Discharge Recommendations Home Transportation Needs at Discharge Private Vehicle - PT assist SBA
[2024-05-16] MEDS: CYANOCOBALAMIN (VITAMIN B-12) 500 MCG TABLET 1000 MCG PO (09:32)
[2024-05-16] MEDS: CLOPIDOGREL 75 MG TABLET PO (09:33)
[2024-05-16] MEDS: SODIUM CHLORIDE 0.9% FLUSH 10 ML IV (09:33)
[2024-05-16] MEDS: ASPIRIN EC 81 MG TABLET PO (09:33)
[2024-05-16] MEDS: ENOXAPARIN 40 MG/0.4 ML SYRINGE SUBCUT (09:33)
--- NOTE | 2024-05-16 10:22 | CM.DANOTE ---
Initial DCP Assessment Note Pt is a 84 yo female, resident of [place], arrives with stroke like sx, admitted OBS for stroke r/o- TIA suspected. TIANNA pending. PCP: ALLI Serrano/[facility] Payer: MCR/[employer] Reviewed chart, pt discussed in multidisciplinary rounds this morning. It is likely that patient will return home today with recommendation for close outpatient follow up. Patient lives independently, alone, anticipates return. Friend or family member to transport home. No barriers identified at this time to patient's safe discharge home w/family ; close outpatient f/u recommended. CM team will plan to follow clinical course closely in case any DC needs or concerns arise. DAT [place] Discharge Planning/Care Management CM Discharge Assessment Start: 05/16/24 10:15 Freq: Status: Active Protocol: Document 05/16/24 10:15 JENNIFER (Rec: 05/16/24 10:22 JENNIFER [id number]) Discharge Planning Assessment Assigned Business Support Liaison DAT Thomas DPOA/Assigned Designee Name Moises Carvalho, son (Donald) Contact Information [phone] Advance Directives? No History Provided By Patient,Medical Record Has Patient been admitted in last 30 No days? Comment ER 03/21/24 ER 03/10/24 Prior Living Arrangements House Household Members none Type of transporation used prior to Drives own vehicle admit Independent with ADL's Yes Is patient alert and oriented? Yes Barriers to Discharge No Discharge Plan Home Transportation Arrangement Family or friend Referrals Initiated None needed
--- NOTE | 2024-05-16 13:30 | OT.IP.EVAL ---
Current Diagnoses Mixed hyperlipidemia (05/15/24) Transient cerebral ischemic attack, unspecified (05/15/24) Past Medical History (Last Reviewed 05/16/24 @ 07:27 by Magnus Colon MD) Actinic keratosis (~2006) Anxiety Asymptomatic microscopic hematuria Maki's esophagus (~2004) Blocked tear duct Cataract (~2013) Chickenpox (~1946) Cold sensitivity Degenerative cervical disc History of anemia (~2010) Hx of migraines (~2012) Hyperlipidemia Hyperlipidemia Leg pain Measles (~1946) Microscopic hematuria Mumps (~1946) Muscle tightness Reactive airway disease Right hip flexor tightness (~2014) Smoker Statin intolerance Vision abnormalities Vitreous detachment, bilateral Surgical History (Last Reviewed 05/16/24 @ 07:27 by Magnus Colon MD) Anesthesia History of cataract removal with insertion of prosthetic lens (~2013) History of cystoscopy History of endoscopy History of facelift History of thumb surgery (~2009) Status post tubal ligation (~1984) Occupational Therapy Inpatient Evaluation/Re-Eval M1 PT/OT-IP Prior Functional Status Start: 05/16/24 12:29 Freq: NEEDED Status: Active Protocol: Document 05/16/24 13:34 [facility] (Rec: 05/16/24 13:48 [facility] [id number]) Medical Review Prior Functional Status Medical History Reviewed Yes Communication able to make needs known Mobility and Gait pt stated that she was independent with all mobilities and ambulation without AD Activities of Daily Living and IADL's Pt independent and drives. Social History Household Members none Living Arrangements House Number of Floors (Floors) One Floor Number of Stairs To Enter/Railing? 4 steps B rails to enter Home Environment Standard Height Toilet,Tub/ Shower Home Equipment Straight Cane,Grab Bars In Shower M2 OT-IP Current Condition Start: 05/16/24 13:34 Freq: Status: Active Protocol: Document 05/16/24 13:34 [facility] (Rec: 05/16/24 13:48 [facility] [id number]) Occupational Therapy Current Condition Current Condition Evaluation Date 05/16/24 Treatment Diagnosis TIA Diagnosis Onset Date 05/15/24 M3 OT- IP Subjective and Pain Start: 05/16/24 13:34 Freq: Status: Active Protocol: Document 05/16/24 13:34 [facility] (Rec: 05/16/24 13:48 [facility] [id number]) OT- Subjective Occupational Therapy Visit Type Type Initial Evaluation Visit Start Time 12:45 Visit Stop Time 13:30 Occupational Therapy Visit Comments Patient Comments Pt agreed do visual and cognitive assessments. Patient/Caregiver Goals TO go home. OT Pain Assessment Pain When Pain Assessed At Rest Pain Present Pain Present Denied Pain M4 OT- IP ADL's Start: 05/16/24 13:34 Freq: Status: Active Protocol: Document 05/16/24 13:34 [facility] (Rec: 05/16/24 13:48 [facility] [id number]) OT DZN-[id number]-Rzyoicj General Evaluation Self-Feeding Ability Independent OT ADL-Toileting General Evaluation Toileting Ability Independent OT ADL-Bathing Comments OT Bathing Comments Suggested pt get a stool for the tub/shower for safety. M5 OT- IP IADL's Start: 05/16/24 13:34 Freq: Status: Active Protocol: Document 05/16/24 13:34 [facility] (Rec: 05/16/24 13:48 [facility] [id number]) OT-Instrumental Activities of Daily Living Home Safety Awareness Awareness of Need for Assistance at Home Good Awareness Ability to Problem Solve Emergency Able to Problem Solve Situations Home Safety Comments Pt able to answer all home safety questions accurately. 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 Meal Preparation Meal Preparation Comments Pt may need increased time to complete now. Stenotype Operator Stenotype Operator Comments Pt may need increased time to complete. Driving Driving Concerns Identified Regarding Safety Driving Comments Pt aware not to drive at this time. M6 OT- IP Functional Cognition Start: 05/16/24 13:34 Freq: Status: Active Protocol: Document 05/16/24 13:34 [facility] (Rec: 05/16/24 13:48 [facility] [id number]) Cognitive Factors Limiting Selfcare Function Cognitive Ability Level of Alertness Alert Patient Orientation Name,Age,Birthday,Month,Date, Year,Day of Week,Place, Situation Attention Span Ability Capable of Focused Attention, Capable of Sustained Attention Ability to Follow Commands Able to Follow Multi-Step Commands Memory Description No Deficits Noted Problem Solving Ability Needs Assist to Identify Solutions Executive Function Ability Unable to Remember Details Cognitive Tests SLUMS Pt scored 30/30 on the SLUMS which implies normal for cognition. Cognitive Comments Cognitive Assessment Comments Pt scored 137 on [place] Making Part B which implies severe deficits for visual attention, speed of processing, mental flexibility, task switching and executive functioning. Pt's score may have been affected to having low lighting due to pt having sensitivity to the light. OT- Vision and Hearing OT- Hearing Assessment OT- Hearing Assessment WFL OT- Vision Assessment Visual Acuity Glasses For Reading Visual Attentiveness WFL Occular Pursuits WFL Visual [place] WFL Diplopia Absent M7 OT- IP Mobility and Balance Start: 05/16/24 13:34 Freq: Status: Active Protocol: Document 05/16/24 13:34 [facility] (Rec: 05/16/24 13:48 [facility] [id number]) OT- Bed Mobility Assessment Supine to Sit Supine to Sit Assist Independent Sit to Supine Sit to Supine Assist Independent OT-Transfer Assessment Sit to and From Stand Sit to and from Stand Independent Transfers Transfer Ability Independent Technique Transfer Destination Bed Comments Mobility Comments Pt able to move independently in the room on her own with good safety. OT- Balance Assessment Sitting Balance and Reactions Static Sitting Balance Ability Normal Dynamic Sitting Balance Ability Normal Standing Balance and Reactions Static Standing Balance Ability Normal Dynamic Standing Balance Ability Good M8 OT- IP Objective Assessments Start: 05/16/24 13:34 Freq: Status: Active Protocol: Document 05/16/24 13:34 [facility] (Rec: 05/16/24 13:48 [facility] [id number]) OT Gross Range of Motion Upper Extremity Range of Motion Assessment Within Functional Limits OT Strength Upper Extremity Strength Assessment Within Functional Limits OT- Coordination Assessment Upper Extremity Finger to Nose Test Within Functional Limits Finger Tapping Test Within Functional Limits Comments Coordination Comments 9 hole peg test 20 seconds for right and left hand 90TH % for her age for right hand and better than 90th % for her left. OT Sensation Assessment Comments Summary Comments INtact M9 OT- IP Assessment and Plan Start: 05/16/24 13:34 Freq: Status: Active Protocol: Document 05/16/24 13:34 [facility] (Rec: 05/16/24 13:48 [facility] [id number]) OT Summary Assessment and Plan Potential Rehabilitation Potential Excellent Analytic Complexity at Evaluation Low Summary OT Impairments Pain,Functional Cognition, Bathing Progress Towards Goals Progressing Toward Goals Assessment Summary Pt present with TIA and noted to needing increased time for problem solving today. Pt scored 30/30 on the SLUMS which implies normal cognition but needing increased time to go through the assessment. Pt aware that she will not drive at this time. Pt to go home when medically stable. Goals Bathing Goal Independent OT-Other Goals GO oever memory strategies Days to Meet Goals 1 Frequency of Treatment Frequency Of Treatment Once a Day Treatment Plan OT Treatment Plan ADL Training,Functional Cognition Training,Functional Mobility,Patient/Family Education,Discharge Planning Discharge Recommendations Home Equipment Needs Shower stool Transportation Needs at Discharge Private Vehicle
[2024-05-16] MEDS: CALCIUM CARBONATE 500 MG TAB 1000 MG PO (14:27)
[2024-05-16 16:00] VITALS: BP 153/93; PULSE 99; RESP 17; TEMP 36.4; O2SAT 98
--- NOTE | 2024-05-16 19:14 | PC.NURSE ---
U/S IV Patient had requested a new IV and this typewriter assembler was notified to place an IV for the patient via ultrasound. Introduced self to pt and role, described the procedure of placing an U/S guided IV and pt consented to proceed. Gel placed and vein visualized. When needle brought to pt skin pt expressed concern over placement and this typewriter assembler immediately stopped procedure. Pt expressed specific concern about the ultrasound gel being injected into skin and into my vein. Reviewed with patient that needle does not go through mass of ultrasound gel and that gel is used to visualize the vein. Patient continued to express concerns. Attempted to reassure and educate patient on use of ultrasound gel for medical procedures and that the gel would not be injected. Requested a pack of gel to read to herself and this was provided. At this time this typewriter assembler offered to place IV without ultrasound but pt declined saying they always hit my bone. Patient then stated to this typewriter assembler I want you to talk to your instructor, reoriented to this typewriter assembler's name and credentials. This typewriter assembler left room and informed pt's RN Lynne about lack of pt consent for IV placement.
[2024-05-16 20:00] VITALS: BP 166/94; PULSE 97; RESP 20; TEMP 36.4; O2SAT 96
[2024-05-16 22:10] VITALS: BP 157/76; PULSE 89; RESP 20; TEMP 36.6; O2SAT 95
--- NOTE | 2024-05-16 22:16 | EKG_ITS ---
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
[2024-05-17 00:52] VITALS: BP 153/63; PULSE 89; RESP 18; TEMP 36.2; O2SAT 97
--- NOTE | 2024-05-17 01:57 | PC.NURSE ---
2200 while this RN was at bedside, notified by FIRE RANGER regarding regarding pt's episode of tachycardia noted on tele, w/ HR 130s. pt denies symptoms, however anxious, and pt stated that she had been concerned that her PIV has not been replaced. pt otherwise easily reassured. Fernando BOWER notified, lab reviewed, EKG stat done by RT, Vitals rechecked and recorded, provider updated, no new orders noted. Pt aware and comfortably laying in bed during rounds. Previous IV on LAC, no swelling or redness noted, removed per pt's request, cath tip intact, tolerated well by pt. new PIV replaced on L forearm.
[2024-05-17 04:00] VITALS: BP 153/70; PULSE 83; RESP 18; TEMP 36.3; O2SAT 93
[2024-05-17 08:17] VITALS: BP 143/66; PULSE 79; RESP 14; TEMP 36.2; O2SAT 95
--- NOTE | 2024-05-17 09:11 | OT.IP.TRT ---
Current Diagnoses Mixed hyperlipidemia (05/15/24) Transient cerebral ischemic attack, unspecified (05/15/24) Occupational Therapy Treatment Note M2 OT-IP Current Condition Start: 05/16/24 13:34 Freq: Status: Active Protocol: Document 05/16/24 13:34 [facility] (Rec: 05/16/24 13:48 [facility] [id number]) Occupational Therapy Current Condition Current Condition Evaluation Date 05/16/24 Treatment Diagnosis TIA Diagnosis Onset Date 05/15/24 M3 OT- IP Subjective and Pain Start: 05/16/24 13:34 Freq: Status: Active Protocol: Document 05/17/24 09:11 [facility] (Rec: 05/17/24 09:18 [facility] [id number]) OT- Subjective Occupational Therapy Visit Type Type Treatment Note Visit Start Time 08:45 Visit Stop Time 09:11 Occupational Therapy Visit Comments Patient Comments Pt agreed to do more cognitive assessments. Patient/Caregiver Goals TO go home. OT Pain Assessment Pain When Pain Assessed At Rest Pain Present Pain Present Denied Pain M4 OT- IP ADL's Start: 05/16/24 13:34 Freq: Status: Active Protocol: Document 05/16/24 13:34 [facility] (Rec: 05/16/24 13:48 [facility] [id number]) OT [id number]-[id number] General Evaluation Self-Feeding Ability Independent OT ADL-Toileting General Evaluation Toileting Ability Independent OT ADL-Bathing Comments OT Bathing Comments Suggested pt get a stool for the tub/shower for safety. M6 OT- IP Functional Cognition Start: 05/16/24 13:34 Freq: Status: Active Protocol: Document 05/17/24 09:11 [facility] (Rec: 05/17/24 09:18 [facility] [id number]) Cognitive Factors Limiting Selfcare Function Cognitive Ability Level of Alertness Alert Patient Orientation Name,Age,Birthday,Month,Date, Year,Day of Week,Place, Situation Attention Span Ability Capable of Focused Attention, Capable of Sustained Attention Ability to Follow Commands Able to Follow Multi-Step Commands Memory Description No Deficits Noted Safety Awareness No Deficits Noted Problem Solving Ability No deficits Noted Executive Function Ability No Deficits Noted Abstract Thinking Ability No Deficits Noted Cognitive Tests ACL Pt scored 6.0/6.0 which implies pt may consider hypothetical plans of action and establish abstract criteria for selecting the best plan. Pt may also make plans for the future that accounts for risks to one's health and well being. Pt scored 88 seconds on [place] Making part B which greatly improved from 137 seconds yesterday. Pt score is 90th % for her age. Cognitive Comments Cognitive Assessment Comments Pt intact for cognitive needs and suggested pt to look up ideas and games to do on her phone to help strengthen her STM. M7 OT- IP Mobility and Balance Start: 05/16/24 13:34 Freq: Status: Active Protocol: Document 05/17/24 09:11 [facility] (Rec: 05/17/24 09:18 [facility] [id number]) OT- Bed Mobility Assessment Supine to Sit Supine to Sit Assist Independent Sit to Supine Sit to Supine Assist Independent OT-Transfer Assessment Sit to and From Stand Sit to and from Stand Independent Transfers Transfer Ability Independent Comments Mobility Comments Pt completely independent in the room. OT- Balance Assessment Sitting Balance and Reactions Static Sitting Balance Ability Normal Dynamic Sitting Balance Ability Normal Standing Balance and Reactions Static Standing Balance Ability Normal Dynamic Standing Balance Ability Good M8 OT- IP Objective Assessments Start: 05/16/24 13:34 Freq: Status: Active Protocol: Document 05/16/24 13:34 [facility] (Rec: 05/16/24 13:48 [facility] [id number]) OT Gross Range of Motion Upper Extremity Range of Motion Assessment Within Functional Limits OT Strength Upper Extremity Strength Assessment Within Functional Limits OT- Coordination Assessment Upper Extremity Finger to Nose Test Within Functional Limits Finger Tapping Test Within Functional Limits Comments Coordination Comments 9 hole peg test 20 seconds for right and left hand 90TH % for her age for right hand and better than 90th % for her left. OT Sensation Assessment Comments Summary Comments INtact M9 OT- IP Assessment and Plan Start: 05/16/24 13:34 Freq: Status: Active Protocol: Document 05/17/24 09:11 [facility] (Rec: 05/17/24 09:18 [facility] [id number]) OT Summary Assessment and Plan Potential Rehabilitation Potential Excellent Analytic Complexity at Evaluation Low Summary Progress Towards Goals Safe For Discharge Assessment Summary Pt intact for all cognitive needs. Pt is 6.0/6.0 for ACL - Magnus Cognitive Level Screen. Pt independent in the room and therefore discharge pt from OT services. Discharge Recommendations OT Discharge Recommendations Home Transportation Needs at Discharge Private Vehicle
[2024-05-17] MEDS: CLOPIDOGREL 75 MG TABLET PO (09:17)
[2024-05-17] MEDS: ASPIRIN EC 81 MG TABLET PO (09:17)
[2024-05-17] MEDS: CYANOCOBALAMIN (VITAMIN B-12) 500 MCG TABLET 1000 MCG PO (09:17)
[2024-05-17] MEDS: SODIUM CHLORIDE 0.9% FLUSH 10 ML IV (09:18)
--- NOTE | 2024-05-17 10:33 | PM.DS.1 ---
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 At that time her symptoms were also related with her migraine headaches. Pt states she has not been taking her ASA regularly, but tried to take it when she can, and she is yet to make her NS appt. Today around 2 pm she was by herself at her home, when she noted word finding difficulty, and she called her son, and EMS called for stroke concern. Pt had no other neurologic deficits, including: Vision loss or double vision, weakness of any extremity, balance problems, or sensory deficits, or speech problems. EMS came to her home took her BP, and told her it was ok for pt to come to ED by asking her friend / neighbor to drive her to ED. She states her word finding difficulty continued, decreasing in severity, for about 30 to 45 mins, and were completely reversed by the time she reached ED. In ED her NIHSS was zero CT head : no acute changesCTA hd and neck: 50 % stensosis of her R proximal ICA , and L V2 segment : completely stenosed. 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 Discharge Providers Provider Date of admission: 05/15/24 20:09 Discharge Date: 05/17/24 Primary care physician: Fransisca Chan PA-C Consults: 05/15/24 20:47 Consult to Occupational Therapy Evaluate & Treat Comment: TIA Physician Instructions: Evaluate and treat Consult to Physical Therapy Evaluate & Treat Comment: TIA Physician Instructions: Evaluate and Treat Discharge provider: Magnus Colon MD Summary Hospital Course Discharge Diagnosis: 1. Transient ischemic attack, present on admission and resolved. Manifesting as Word finding difficulty, in pt with TIA? Stroke Risk factors: HLD, ( statin intolerant), HTN, and Cerebral Atherosclerosis and stenosis of ICA and Vertebral A Pt has a Neurosurgery referral, she is encouraged to schedule her appt thought its in [place] per patient. 2. Hyperlipidemia, present on admission and active. 10/31/14 10.7 10 year ascvd risk Intolerant to Statins , pt adamantly refuses to take any statin / Neurologist Tele had advised trial of Resuva statin : pt declines She does not mind continuing to take CoQ Fasting Lipid panel in the morning 3. HTN,, present on admission and active. 4. Migraine WALTERS, present on admission and active. 5. Possible hypoechoic lesion noted on liver on echo. Hospital Course: She was admitted with transient speech difficulties. Specifically she would word-finding issues. She was loaded with Plavix and treated with dual antiplatelet therapy based on recommendations from tele stroke. Imaging did reveal a 50% stenosis of her right ICA and a complete occlusion of her vertebral artery V2 segment. She does not smoke. She did declined statins citing a intolerance. She will continue to discuss her options with her primary care. In the hospital her speech difficulties improved over 2 days. She does have a history of migraine headaches usually with visual auras. She did have some degree of headache over the 1st day and a half of her admission but this did resolve. Status at Discharge Cognitive/behavioral status at discharge: oriented Functional status at discharge: independent ambulation Overall status at discharge: patient is back to baseline Time Spent with Patient Time spent: Greater than 30 minutes Exam Vital Signs (past 8 hours): - 05/17/24 04:00 05/17/24 08:17 Temperature 97.3 F L 97.2 F L Pulse Rate 83 79 Respiratory Rate 18 14 Blood Pressure 153/70 H 143/66 H Pulse Oximetry 93 95 Oxygen Flow Rate 0 0 Oxygen Delivery Method Room Air Oxygen Flow Rate 0 Narrative Exam Narrative: NAD, alert and oriented. Fluent speech. Lungs are clear, normal rate and effort. Heart is regular, no murmur gallop or rub. Abdomen is soft, non distended. Extremities are free of edema. Neuro: Cranial nerves intact, speech normal. Negative pronator drift. Normal leg strength. Objective ECG Impression: Sinus bradycardia Minimal voltage criteria for LVH, may be normal variant ( R in aVL ) Inferior infarct , age undetermined Imaging Multiple studies:: Radiologist's impression: Head CT:No acute intracranial hemorrhage is seen. No acute intracranial pathology. If there is strong clinical suspicion for an acute stroke, please consider a brain MRI for further evaluation, as it is more sensitive (assuming that there is no contraindication to MRI). Head and neck CTA: No significant intracranial arterial abnormality is seen. Up to 50% narrowing seen involving the right proximal internal carotid artery. Focal area of near complete stenosis involving the left V2 segment. The flow within the left vertebral artery is overall improved compared to the prior CT angiogram, however. Echo: Radiologist's impression: 1. The left ventricular contractility is normal. Estimate ejection fraction is greater than 60% with no segmental wall motion abnormalities. No LVH. Impaired relaxation 2. The right ventricular contractility is borderline. 3. All cardiac chambers are of normal size. 4. No significant valvular abnormalities. 5. No obvious intracardiac shunts. 6. No obvious intracardiac masses nor thrombi. 7. No hemodynamically significant pericardial effusion. 8. Low right-sided filling pressures. 9. A circular hypoechogenic density noted measuring approximately 2 x 3 cm in the liver. Conclusion: Normal left ventricular systolic function with borderline right ventricular systolic function. No significant valvular abnormalities. Hypoechogenic density noted in the liver of unclear significance. MRI - head: Radiologist's impression: 1. Unremarkable brain MRI for patient age. Age-related volume loss, mild, age-appropriate small-vessel ischemic change. No acute intracranial process. 2. Incidental note made of cervical spondylosis with likely cervical canal stenosis. Labs 05/16/24 04:50 05/16/24 04:50 [facility] Medical History Hyperlipidemia Statin intolerance Smoker Vision abnormalities Muscle tightness Leg pain Right hip flexor tightness (~2014) Actinic keratosis (~2006) Chickenpox (~1946) Measles (~1946) Mumps (~1946) Vitreous detachment, bilateral Cataract (~2013) Microscopic hematuria Cold sensitivity Hyperlipidemia Blocked tear duct Maki's esophagus (~2004) Hx of migraines (~2012) History of anemia (~2010) Reactive airway disease Anxiety Asymptomatic microscopic hematuria Degenerative cervical disc Surgical History Anesthesia History of thumb surgery (~2009) History of endoscopy History of facelift History of cataract removal with insertion of prosthetic lens (~2013) History of cystoscopy Status post tubal ligation (~1984) Family History Brother Diabetes mellitus High cholesterol Father Diabetes mellitus High cholesterol Grandfather Heart disease Grandmother Cancer Mother Diabetes mellitus Mental health problem History of breast cancer Social History household members: none Smoking Status: Former smoker Tobacco: How many years used: 38 alcohol intake: never Discharge Assessment & Plan Assessment and Plan Assessment: 1. Transient ischemic attack, present on admission and resolved. Manifesting as Word finding difficulty, in pt with TIA? Stroke Risk factors: HLD, ( statin intolerant), HTN, and Cerebral Atherosclerosis and stenosis of ICA and Vertebral A Pt has a Neurosurgery referral, she is encouraged to schedule her appt thought its in [place] per patient. 2. Hyperlipidemia, present on admission and active. 10/31/14 10.7 10 year ascvd risk Intolerant to Statins , pt adamantly refuses to take any statin / Neurologist Tele had advised trial of Resuva statin : pt declines She does not mind continuing to take CoQ Fasting Lipid panel in the morning 3. HTN,, present on admission and active. 4. Migraine WALTERS, present on admission and active. 5. Possible hypoechoic lesion noted on liver on echo. Plan of Treatment: Discharge home with dual antiplatelet therapy, then would recommend aspirin monotherapy she. She was taking aspirin but intermittently prior to this episode. PCP within a week, continue to discuss statin strategies. In addition patient was noted to have a possible hypoechoic abnormality of the liver on echo, recommended a follow up outpatient imaging studies such as right upper quadrant ultrasound or CT. Discharge Plan Discharge Plan Patient Disposition: Home Provider Discharge Comment: Stable for discharge home with a presumptive diagnosis of TIA. Discharge orders & Medications Prescriptions: New clopidogrel 75 mg Tablet 75 mg PO DAILY Qty: 20 0RF aspirin 81 mg Tablet,Delayed Release (Dr/Ec) 81 mg PO DAILY Qty: 30 3RF Continued CYANOCOBALAMIN (VITAMIN B-12) (Vitamin B-12) 1,000 mcg PO QDAY Qty: 0 [CO Q 10] 1 tab PO QAM Qty: 0 [FISH OIL] 1 tab PO QAM Qty: 0 Follow up/Referrals: Fransisca Chan PA-C [Primary Care Provider] - Discharge Health Status Multidrug resistant organism: No MDRO Diet/Activity/Treatments Diet: Low-cholesterol Activity: As tolerated. Visit Report/Discharge Packet Instructions: Eating a Diet Low in Saturated Fat, Trans Fat, and Cholesterol, DI for Transient Ischemic Attack Stand Alone Forms: Patient Portal/API, Stroke Signs & Symptoms Discharge Data Primary Care Provider: Fransisca Chan Attending Provider: Erika Arzola Admit Date/Time: 05/15/24 20:09
--- NOTE | 2024-05-17 12:15 | CM.DPNOTE ---
DC Note Patient has been cleared by medicine and therapies for return home today with close outpatient follow up. Patient does not drive, she plans to call [facility] to schedule her won taxi. No needs from this CM team. Plan: Discharge home via taxi, close outpatient follow up. JENNIFER
== END 2024-05-17 11:15 | disposition home or self-care (01) ==
LOC: ED 19:28 → AC 20:09
PROVIDERS: Admitting Provider Hospitalist; Emergency Provider Emergency Medicine; PCP Physician Assistant; Referring Provider Emergency Medicine; Visit Provider Hospitalist
DX: G45.9 Transient cerebral ischemic attack, unspecified (principal); E78.2 Mixed hyperlipidemia; Z87.891 Personal history of nicotine dependence; I10 Essential (primary) hypertension; R29.700 NIHSS score 0; G43.909 Migraine, unspecified, not intractable, without status migrainosus; I65.02 Occlusion and stenosis of left vertebral artery; I65.21 Occlusion and stenosis of right carotid artery; R93.2 Abnormal findings on diagnostic imaging of liver and biliary tract
CPT/HCPCS: 36415; 70450; 70496; 70498; 70551; 71045; 80048; 80053; 80061; 81003; 82550; 83690; 83735; 83880; 84443; 84484; 85025; 85610; 85730; 93005; 93306; 97116; 97129; 97130; 97161; 97165; 97530; 99284; G0378; J1650; Q9967

== ENCOUNTER → 2024-06-18 10:43 | Outpatient (CLI) | payer MEDICARE, SELFPAY ==
[2024-05-15 21:15] VITALS: BMI 31.3
--- NOTE | 2024-06-18 | DI.RAD.S_ITS ---
PROCEDURE: FL UPPER GI SERIES INDICATIONS: GERD, Aspiration into airway COMPARISON: None. 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 Esophagus: There was no fluoroscopic evidence of laryngeal aspiration during the time of the exam. Esophageal mucosa is normal on air-contrast views. Intermittently, tertiary non propulsive contractions were noted in the mid and distal esophagus. Small sliding hiatal hernia was also noted intermittently with moderate gastro esophageal reflux to the level of the [id number] esophagus. Otherwise, on single-contrast views, there is normal esophageal peristalsis. No strictures, extrinsic mass effects, or diverticula. There is normal transit of a calibrated barium tablet through the esophagus. Stomach: The stomach is normally distensible, with normal rugal fold thickness. No mucosal masses or ulcers. Pylorus and duodenal bulb appear normal in morphology. Duodenal folds are normal in thickness as well. IMPRESSION: Small sliding hiatal hernia is noted intermittently. Gastroesophageal reflux and tertiary non propulsive contractions which may be a cause of dysphagia or chest pain. No evidence of laryngeal aspiration during the exam. If there is high clinical suspicion of aspiration, modified barium swallow study with speech therapist could be considered. Dictated by: Jesus Coates M.D. on 06/20/2024 at 8:36 Approved by: Jesus Coates M.D. on 06/20/2024 at 8:40
--- NOTE | 2024-06-18 10:44 | DI.CT.S_ITS ---
PROCEDURE: CT ANGIO ABDOMEN PELVIS INDICATIONS: LEFT RENAL ARTERY STENOSIS TECHNIQUE: After the administration of intravenous contrast, 2.5 mm thick sections acquired from the diaphragm to the symphysis. 10 mm maximum-intensity projection (MIP) reformats were then acquired. For radiation dose reduction, the following was used: automated exposure control. COMPARISON: None. FINDINGS: Abdominal aorta: No aortic aneurysm or evidence of acute aortic syndrome.. Mild calcific atherosclerotic plaque Mesenteric arteries: Patent without hemodynamically significant stenosis. Renal arteries: Single bilateral renal arteries. Calcific atherosclerotic plaque at the origin the left renal artery results in less than 50% stenosis. The origin the right renal artery is widely patent OTHER: Lower Chest: 1.3 x 2.5 cm nodule in the right breast in a background of near complete fatty replacement of both breasts. Moderate hiatal hernia. Platelike atelectasis right lung base Liver: No solid mass. Several hepatic simple appearing cysts, largest is in the left hepatic lobe measuring 4.5 cm in diameter Gallbladder: No radiopaque gallstones or wall thickening. Biliary ducts: No biliary dilation. Pancreas: No ductal dilation. Spleen: Size is within normal limits. Adrenal Glands: No adrenal nodules. Kidneys and Ureters: No hydronephrosis. No solid mass. No complex renal cystic lesion which requires follow up. Stomach and Bowel: Normal colonic caliber, without significant wall thickening. Multiple diverticula arise from the sigmoid colon without evidence of diverticulitis. Peritoneum: No abnormal intraperitoneal fluid. No free air. Ventral Wall: No hernia. Abdominal Nodes: No retroperitoneal or mesenteric adenopathy by size criteria. Vessels: Aorta and inferior vena cava are normal in size. PELVIS: Pelvic Organs: Unremarkable. Bladder: Unremarkable. Pelvic Nodes: No enlarged lymph nodes. Miscellaneous: No inguinal hernias are seen. Bones: Degenerative disc disease and arthropathy noted in lower lumbar spine. IMPRESSION: Atherosclerotic, less than 50% stenosis of the left renal artery origin. No stenosis, right renal artery Colonic diverticulosis without evidence of diverticulitis Approved by: Fawad Mendoza M.D. on 06/18/2024 at 18:17
== END ==
PROVIDERS: PCP Physician Assistant; Referring Provider Physician Assistant; Visit Provider Physician Assistant
DX: I70.1 Atherosclerosis of renal artery (principal); I70.0 Atherosclerosis of aorta; K57.30 Diverticulosis of large intestine without perforation or abscess without bleeding; K44.9 Diaphragmatic hernia without obstruction or gangrene; N63.15 Unspecified lump in the right breast, overlapping quadrants; K21.9 Gastro-esophageal reflux disease without esophagitis; K76.89 Other specified diseases of liver; M47.816 Spondylosis without myelopathy or radiculopathy, lumbar region; M51.369 Other intervertebral disc degeneration, lumbar region without mention of lumbar back pain or lower extremity pain
CPT/HCPCS: 74174; 74240; Q9967

== ENCOUNTER → 2024-06-29 11:43 | Outpatient (CLI) | payer MEDICARE, SELFPAY ==
[2024-05-15 21:15] VITALS: BMI 31.3
--- NOTE | 2024-06-29 11:45 | DI.US.S_ITS ---
PROCEDURE: US ARTERIAL DUPLEX LE BI INDICATIONS: Claudication TECHNIQUE: Color and pulse Doppler interrogation was performed of both lower extremity arterial systems, with image documentation. COMPARISON: None. FINDINGS: Right lower extremity: Common femoral artery: 123 cm/sec, with biphasic flow. Deep femoral artery: 77 cm/sec, with biphasic flow. Proximal superficial femoral artery: 116 cm/sec, with biphasic flow. Mid superficial femoral artery: 140 cm/sec, with biphasic flow. Distal superficial femoral artery: 87 cm/sec, with biphasic flow. Popliteal artery: 96 cm/sec, with biphasic flow. Posterior tibial artery: 46 cm/sec, with biphasic flow. Anterior tibial artery/dorsalis pedis: 37/36 cm/sec, with biphasic/monophasic flow. Muñoz-scale imaging description: Wide patency from the common femoral through the popliteal with normal waveforms. Distal anterior tibial distribution stenotic or occlusive disease with distal high resistance waveform. Left lower extremity: Common femoral artery: 128 cm/sec, with biphasic flow. Deep femoral artery: 114 cm/sec, with monophasic flow. Proximal superficial femoral artery: 117 cm/sec, with biphasic flow. Mid superficial femoral artery: 120 cm/sec, with biphasic flow. Distal superficial femoral artery: 129 cm/sec, with biphasic flow. Popliteal artery: 48 cm/sec, with biphasic flow. Posterior tibial artery: 42 cm/sec, with biphasic flow. Anterior tibial artery/dorsalis pedis: 40/16 cm/sec, with proximal biphasic and distal monophasic high resistance flow. Muñoz-scale imaging description: There is minimal scattered plaque with no significant stenosis from the common femoral through the popliteal with normal waveforms. There is significant distal anterior tibial distribution stenotic or occlusive disease. Posterior tibial has normal waveforms. IMPRESSION: 1. No evidence of inflow stenotic disease. 2. Wide patency from the common femorals through the popliteals bilaterally with normal waveforms. 3. Bilaterally, the posterior tibial artery appears unremarkable by ultrasound. There is distal anterior tibial artery distribution significant stenotic or occlusive disease resulting in monophasic high resistance waveforms in the dorsalis pedis arteries bilaterally. Dictated by: Johan Little M.D. on 06/29/2024 at 15:08 Approved by: Johan Little M.D. on 06/29/2024 at 15:18
== END ==
PROVIDERS: PCP Physician Assistant; Referring Provider Physician Assistant; Visit Provider Physician Assistant
DX: I73.9 Peripheral vascular disease, unspecified (principal); I70.8 Atherosclerosis of other arteries
CPT/HCPCS: 93925

== ENCOUNTER → 2024-07-23 08:46 | Outpatient (CLI) | payer MEDICARE, SELFPAY ==
[2024-05-15 21:15] VITALS: BMI 31.3
--- NOTE | 2024-07-23 08:48 | DI.MG.S_ITS ---
MM diagnostic mammo BI: 07/23/2024. BI-RADS: 2 CLINICAL: 84-year old female for bilateral diagnostic mammogram. Tyrer-Cuzick lifetime risk of 1.1%. Current reported family history of breast cancer: mother. The patient had a prior right breast biopsy. PRIOR EXAMS: 05/21/2023, 05/13/2022, 05/12/2021, 01/16/2020, 01/12/2019, 01/11/2018, 12/01/2016, 11/19/2015, 11/13/2014. MAMMOGRAPHY TECHNIQUE: 2D and 3D (tomosynthesis) digital mammographic views obtained, with additional images as needed for full coverage. Current study was also evaluated with a Computer Aided Detection (CAD) system. DENSITY B. There are scattered areas of fibroglandular density. MAMMOGRAPHY FINDINGS Right: Upper at 11:30, Retroareolar, Far Anterior depth: In keeping with benign fibroglandular tissue. Correlating with CT findings there is a focal asymmetry present that is unchanged in size and appearance. Right: Benign-appearing post-surgical changes noted on the right. There are no suspicious masses, calcifications, or other findings in the breast. Left: No suspicious mass, asymmetry, microcalcification, or other abnormality seen. IMPRESSION: Right * No evidence of malignancy with benign findings. Left * No evidence of malignancy. RECOMMENDATIONS Bilateral * Annual screening mammography. OVERALL ASSESSMENT CATEGORY BI-RADS-2: Benign. The [employer] recommends annual screening mammography beginning at age 40 for women with average risk of breast cancer. ELECTRONICALLY SIGNED: Ayad Mckeon M.D. on 07/23/2024 at 12:05:13 PM PT Interpreting Station ID: [id number]
--- NOTE | 2024-07-23 08:48 | DI.US.S_ITS ---
PROCEDURE: US ABDOMEN LIMITED INDICATIONS: LIVER CYST ON ECHO TECHNIQUE: Real-time scanning was performed of the abdominal and retroperitoneal organs, with image documentation. COMPARISON: None. FINDINGS: Liver: Liver is normal in size and homogeneous in echotexture. Simple cyst without internal septations or nodularity in the left hepatic lobe measuring 3.4 x 3.6 x 4.9 cm. Gallbladder: No gallstones. No wall thickening. No pericholecystic edema. Negative sonographic Solorzano's sign. Biliary ducts: Intrahepatic bile ducts are non-dilated. Extrahepatic bile duct caliber measures 4.5 mm. Normal is 6-7 mm or less in diameter, or 10 mm or less post-cholecystectomy. Pancreas: Not visualized due to overlying bowel gas. Miscellaneous: No free abdominal fluid. IMPRESSION: Simple appearing left hepatic cyst without suspicious features measuring 4.9 cm. Findings are likely benign. Dictated by: Juaquin Ramirez M.D. on 07/23/2024 at 13:06 Approved by: Juaquin Ramirez M.D. on 07/23/2024 at 13:07
--- NOTE | 2024-07-23 08:48 | DI.CT.S_ITS ---
PROCEDURE: CT ANGIO ABDOMEN PELVIS INDICATIONS: RENAL ARTERY STENOSIS TECHNIQUE: After the administration of intravenous contrast, 2.5 mm sections acquired from the diaphragm to the iliac crests. 10 mm maximum intensity projection (MIP) coronal and sagittal reformats were then performed. For radiation dose reduction, the following was used: automated exposure control. COMPARISON: [facility], CT, CT ANGIO ABDOMEN PELVIS, 06/18/2024, 10:53. FINDINGS: Image quality: Diagnostic. Abdominal aorta: No aortic aneurysm or evidence of acute aortic syndrome. Mesenteric arteries: Patent without hemodynamically significant stenosis. Renal arteries: Less than 25% narrowing of the renal artery ostium due to atherosclerotic disease. Lower chest: Asymmetric right breast nodularity; this was evaluated on 07/23/2024 with diagnostic breast workup. Senescent changes in the lung bases. Moderate LAD calcifications and small hiatal hernia. ABDOMEN: Liver: No solid mass. Hepatic cysts. Additional subcentimeter hypoattenuating lesions, too small to characterize by CT. Gallbladder: No radiopaque gallstones or wall thickening. Biliary ducts: No biliary dilation. Pancreas: No ductal dilation. Spleen: Size is within normal limits. Adrenal Glands: No adrenal nodules. Kidneys and Ureters: No hydronephrosis. No solid mass. No complex renal cystic lesion which requires follow up. Stomach and Bowel: Normal colonic caliber, without significant wall thickening. Colonic diverticulosis without evidence of diverticulitis. Peritoneum: No abnormal intraperitoneal fluid. No free air. Ventral Wall: No hernia. Abdominal Nodes: No retroperitoneal or mesenteric adenopathy by size criteria. Vessels: Aorta, as above. Normal IVC. PELVIS: Pelvic Organs: Unremarkable. Bladder: Unremarkable. Pelvic Nodes: No enlarged lymph nodes. Miscellaneous: No inguinal hernias are seen. Bones: No aggressive osseous abnormality. Degenerative disc disease of the lumbar spine. Grade 1 anterolisthesis of L4 on L5 due to facet arthrosis. IMPRESSION: Less than 25% narrowing of the renal artery ostium due to atherosclerotic plaque. Colonic diverticulosis without evidence of diverticulitis. Dictated by: Juaquin Ramirez M.D. on 07/26/2024 at 9:31 Approved by: Juaquin Ramirez M.D. on 07/26/2024 at 9:39
[2024-07-23 09:15] LABS: Estimated Glomerular Filt Rate 44 mL/min (>60)
== END ==
PROVIDERS: PCP Physician Assistant; Referring Provider Physician Assistant; Visit Provider Physician Assistant
DX: N63.0 Unspecified lump in unspecified breast; R92.321 Mammographic fibroglandular density, right breast; R93.2 Abnormal findings on diagnostic imaging of liver and biliary tract; I70.1 Atherosclerosis of renal artery; I25.10 Atherosclerotic heart disease of native coronary artery without angina pectoris; K76.89 Other specified diseases of liver; K44.9 Diaphragmatic hernia without obstruction or gangrene; K57.30 Diverticulosis of large intestine without perforation or abscess without bleeding; M51.369 Other intervertebral disc degeneration, lumbar region without mention of lumbar back pain or lower extremity pain; M47.816 Spondylosis without myelopathy or radiculopathy, lumbar region; Z80.3 Family history of malignant neoplasm of breast
CPT/HCPCS: 36415; 74174; 76705; 77066; 82565; G0279; Q9967

== ENCOUNTER 2024-08-28 09:32 | Emergency (ER) | payer MEDICARE, SELFPAY ==
[2024-05-15 21:15] VITALS: BMI 31.3
[2024-08-28] VITALS (9 sets, daily range): BP systolic 138–171; BP diastolic 66–74; PULSE 73–88; RESP 13–19; TEMP 36.4–36.9; O2SAT 95–99; BMI 29.2
--- NOTE | 2024-08-28 09:59 | EKG_ITS ---
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
--- NOTE | 2024-08-28 10:00 | ED_ITS ---
HPI - Eye Problem General Chief complaint: Eye Problems Stated complaint: Sent from [facility]. Something wrong L eye Time Seen by Provider: 08/28/24 09:59 Source: patient Mode of arrival: Family Vehicle History of Present Illness HPI Narrative: Patient is sent here by Dr. Main from her office, ophthalmology for concerns of stroke TIA. Patient has had blurry cloudy vision in the left eye constant since August 08, 2024. Denies any eye pain. Fast exam is otherwise negative. Clear speech no facial droop no numbness tingling or weakness to the limbs. No prior history of stroke. Patient states she has had history of cataract surgery in the past. Patient did have her eyes dilated in the office with Dr. Main Ophthalmology this morning. Related Data Home Medications ?Medication ?Instructions ?Recorded ?Confirmed CYANOCOBALAMIN (VITAMIN B-12) 1,000 mcg PO QDAY ##0 05/15/24 (Vitamin B-12) [CO Q 10] 1 tab PO QAM ##0 05/05/16 [FISH OIL] 1 tab PO QAM ##0 05/05/16 Previous Rx's ?Medication ?Instructions ?Recorded aspirin 81 mg tablet,delayed 81 mg PO DAILY #30 tabs 0 05/17/24 release clopidogrel 75 mg tablet 75 mg PO DAILY #20 tabs 0309/05 Allergies Allergy/AdvReac Type Severity Reaction Status Date / Time omeprazole (OMEPRAZOLE) Allergy Severe chest pain Verified 08/28/24 09:53 diclofenac (DICLOFENAC) Allergy Mild chest pain Verified 08/28/24 09:53 metoprolol (METOPROLOL) AdvReac Mild mentally Verified 08/28/24 09:53 disconnected niacin (NIACIN) AdvReac Mild headache Verified 08/28/24 09:53 NSAIDS (Non-Steroidal AdvReac Mild sensitivity Verified 08/28/24 09:53 Anti-Inflamma (NSAIDS (NON-STEROIDAL ANTI-INFLAMMA) pravastatin (PRAVASTATIN) AdvReac Mild leg Verified 08/28/24 09:53 pain/hematuria ranitidine (RANITIDINE) AdvReac Mild mental Verified 08/28/24 09:53 issues Review of Systems Review of Systems Narrative: GENERAL: Negative chills, fatigue, malaise, fever, sweats. HEENT: Negative sinus pain, ear pain, sore throat RESPIRATORY: Negative dyspnea, cough CARDIOVASCULAR: Negative chest pain, palpitations GASTROINTESTINAL: Negative vomiting, nausea, abdominal pain : Negative dysuria, frequency, hematuria MUSCULOSKELETAL: Negative muscle or bony pain SKIN: Negative rash, skin lesions NEUROLOGIC: Negative weakness, numbness, positive blurry vision negative facial droop negative slurred speech ROS Unobtainable: All systems reviewed & are unremarkable except as noted in HPI and below Patient History Medical History Hyperlipidemia Statin intolerance Smoker Vision abnormalities Muscle tightness Leg pain Right hip flexor tightness (~2014) Actinic keratosis (~2006) Chickenpox (~1946) Measles (~1946) Mumps (~1946) Vitreous detachment, bilateral Cataract (~2013) Microscopic hematuria Cold sensitivity Hyperlipidemia Blocked tear duct Maki's esophagus (~2004) Hx of migraines (~2012) History of anemia (~2010) Reactive airway disease Anxiety Asymptomatic microscopic hematuria Degenerative cervical disc Surgical History Anesthesia History of thumb surgery (~2009) History of endoscopy History of facelift History of cataract removal with insertion of prosthetic lens (~2013) History of cystoscopy Status post tubal ligation (~1984) Family History Brother Diabetes mellitus High cholesterol Father Diabetes mellitus High cholesterol Grandfather Heart disease Grandmother Cancer Mother Diabetes mellitus Mental health problem History of breast cancer Social History household members: none Smoking Status: Former smoker Tobacco: How many years used: 38 alcohol intake: never Smoking Status: Former smoker tobacco type: cigarettes alcohol intake frequency: 0-2 drinks per day Exam Narrative Exam Narrative: GENERAL: in no distress, not toxic not dyspneic HEAD: Normocephalic. 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 ENT: Mucous membranes moist. NECK: Trachea midline. CARDIOVASCULAR: Regular rate and rhythm RESPIRATORY: Clear to auscultation. Breath sounds equal bilaterally. No wheezes, rales, or rhonchi. GASTROINTESTINAL: Abdomen soft, non-tender EXTREMITIES: No gross deformities. BACK: No flank tenderness. NEURO: AOx4. 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 Fast exam is negative. SKIN: Warm and dry PSYCH: Not anxious, is cooperative Initial Vital Signs Initial Vital Signs: Vital Signs Pulse Rate 87 08/28/24 09:46 Respiratory Rate 17 08/28/24 09:46 Blood Pressure 139/73 08/28/24 09:46 Pulse Oximetry 98 08/28/24 09:46 Course Orders Ordered: Discontinued Medications Sodium Chloride (Normal Saline 0.9%) 500 mls @ 1,000 mls/hr IV BOLUS ONE Stop: 08/28/24 10:29 Last Infusion: 08/28/24 12:52 Dose: Infused Documented By: Admin: 08/28/24 11:25 Dose: 1,000 mls/hr Documented By: Vital Signs Vital signs: Vital Signs - 8 hr 08/28/24 09:46 08/28/24 09:46 08/28/24 09:51 Temperature 97.6 F Pulse Rate 87 88 Respiratory Rate 17 16 Blood Pressure 139/73 139/73 Pulse Oximetry 98 99 Oxygen Delivery Method Room Air 08/28/24 10:00 08/28/24 10:00 08/28/24 11:29 Temperature Pulse Rate 79 84 Respiratory Rate 17 Blood Pressure 138/72 Pulse Oximetry 96 99 Oxygen Delivery Method 08/28/24 11:30 08/28/24 11:30 08/28/24 12:00 Temperature Pulse Rate 73 81 Respiratory Rate 13 Blood Pressure 153/72 H Pulse Oximetry 98 95 Oxygen Delivery Method Room Air 08/28/24 12:00 08/28/24 12:25 08/28/24 12:25 Temperature Pulse Rate 81 Respiratory Rate 18 Blood Pressure 156/69 H 171/74 H Pulse Oximetry 98 Oxygen Delivery Method 08/28/24 12:28 08/28/24 12:28 Temperature Pulse Rate 83 Respiratory Rate 19 Blood Pressure 151/67 H Pulse Oximetry 98 Oxygen Delivery Method MDM - Eye Problem Lab Data 08/28/24 10:15 08/28/24 10:15 Labs: Lab Results 08/28/24 Range/Units 10:15 WBC 6.4 (4.5-11.0) X10^3/uL RBC 4.00 (4.0-5.2) X10^6/uL Hgb 12.9 (12.0-16.0) g/dL Hct 39.0 (36-46) % MCV 97.4 (80-100) fL MCH 32.2 (26-34) PG MCHC 33.1 (30-36) % RDW 13.3 (11.6-14.8) % Plt Count 305 (150-400) X10^3/uL Neut % (Auto) 64.9 (50-75) % Lymph % (Auto) 24.1 L (25-40) % [place] % (Auto) 8.6 (3-14) % Eos % (Auto) 1.7 L (2-4) % Baso % (Auto) 0.7 (0-2) % Neut # (Auto) 4100 (7035-8599) /uL Lymph # (Auto) 1500 (4700-3095) /uL [place] # (Auto) 500 (0-900) /uL Eos # (Auto) 100 (0-450) /uL Baso # (Auto) 0 (0-100) /uL Sodium 138 (137-145) mmol/L Potassium 4.2 (3.4-5.1) mmol/L Chloride 104 (98-107) mmol/L Carbon Dioxide 27 (22-32) mmol/L BUN 23 H (7-17) mg/dL Creatinine 1.06 H (0.52-1.04) mg/dL Estimated GFR 52 L (>60) mL/min BUN/Creatinine Ratio 21.7 (6-22) Glucose 96 (70-99) mg/dL Calcium 9.9 (8.4-10.2) mg/dL Total Bilirubin 0.5 (0.2-1.3) mg/dL AST 29 (14-36) IU/L ALT 18 (<35) IU/L Alkaline Phosphatase 59 (38-126) U/L Total Protein 6.7 (6.3-8.2) g/dL Albumin 4.2 (3.5-5.0) g/dL Globulin 2.5 (1.7-4.1) g/dL Albumin/Globulin Ratio 1.7 (1.0-2.8) Imaging Data CT scan - head: Radiologist's Impression: [address] [address] [address] Scan Report Signed Patient: Barby Carvalho MR#: [id number] : 1940 Acct:[id number] Age/Sex: 84 / F Date of Service: 08/28/24 Loc: ED Accession Number: [id number] Procedure: CT head/brain wo con Ordering Provider: Ervin James MD PROCEDURE: CT HEAD/BRAIN WO CON INDICATIONS: Blurry vision TECHNIQUE: Noncontrast 4.5 mm thick angled axial sections acquired from the foramen magnum to the vertex, with coronal and sagittal reformats. For radiation dose reduction, the following was used: automated exposure control, adjustment of mA and/or kV according to patient size. COMPARISON: [facility], CT, CT HEAD/BRAIN WO CON, 05/15/2024, 17:04. FINDINGS: Image quality: Diagnostic. CSF spaces: Basal cisterns are patent. No extra-axial fluid collections. The ventricles are symmetric in size and shape. Brain: No intracranial bleeds or mass effect. There is cerebral volume loss, with resultant ventricular and sulcal prominence. There are periventricular and deep white matter chronic small vessel ischemic changes. There is intracranial internal carotid artery atherosclerosis. Skull and face: Calvarium and visualized facial bones appear intact, without suspicious lesions. Sinuses: Visualized sinuses and mastoids are clear. IMPRESSION: No acute intracranial pathology. Dictated by: Ronaldo Curry M.D. on 08/28/2024 at 11:25 Approved by: Ronaldo Curry M.D. on 08/28/2024 at 11:26 CTA - brain/neck: Radiologist's Impression: [place] [address] CT Scan Report Signed Patient: Barby Carvalho MR#: [id number] : 1940 Acct:[id number] Age/Sex: 84 / F Date of Service: 08/28/24 Loc: ED Accession Number: [id number] Procedure: CT angio head and neck Ordering Provider: Ervin James MD PROCEDURE: CT ANGIO HEAD AND NECK INDICATIONS: Blurry vision TECHNIQUE: After the administration of intravenous contrast, 1 mm thick sections acquired from the aortic arch through the [place] of [place]. 3-dimensional hzkhged-iwwuohpdn-yrrvbxbduj (MIP) and/or volume rendering reformats were acquired of the central intracranial vasculature and neck separately. For radiation dose reduction, the following was used: automated exposure control, adjustment of mA and/or kV according to patient size. COMPARISON: [facility], CT, CT ANGIO HEAD AND NECK, 05/15/2024, 17:04. FINDINGS: Image quality: Diagnostic. Cerebral CT Angiogram: Internal carotid arteries: No acute findings. Intracranial ICA are patent with no significant stenosis. No occlusion. No aneurysm. Anterior cerebral arteries: Unremarkable. No significant stenosis. No occlusion. No aneurysm. Middle cerebral arteries: Unremarkable. No significant stenosis. No occlusion. No aneurysm. Posterior cerebral arteries: Unremarkable. No significant stenosis. No occlusion. No aneurysm. Basilar artery: Unremarkable. No significant stenosis. No occlusion. No aneurysm. Vertebral arteries: Unremarkable as visualized. Dural venous sinuses: Unremarkable given phase of enhancement. Other: Arterial phase appearance of the brain parenchyma is unremarkable. Neck CT Angiogram: Internal carotid arteries: Bilateral carotid bulb calcification with mild stenosis of the right proximal ICA, less than 50% and no significant stenosis of the left proximal ICA.. No dissection or occlusion. Common carotid arteries: Unremarkable. No significant stenosis. No dissection or occlusion. External carotid arteries: Unremarkable. No occlusion. Vertebral arteries: Right vertebral artery is dominant. Redemonstration of focal area of near complete occlusion of the left P2 segment (2/115), similar to prior.. No dissection or occlusion. Aortic Arch and Mediastinum: Partially visualized aortic arch unremarkable without evidence of aneurysm. Origins of the great vessels unremarkable. Other: Arterial phase soft tissues of the neck and chest are unremarkable. IMPRESSION: No significant intracranial arterial abnormality is seen. Mild stenosis of the right proximal ICA, less than 50%, similar to prior. Focal area of near complete occlusion of left V2 segment is similar to prior. Any quantitative measurements of stenosis were performed using NASCET criteria. Dictated by: Ronaldo Curry M.D. on 08/28/2024 at 11:32 Approved by: Ronaldo Curry M.D. on 08/28/2024 at 11:42 MRI brain: Radiologist's Impression: [address] [address] Magnetic Resonance Report Signed Patient: Barby Carvalho MR#: [id number] : 1940 Acct:[id number] Age/Sex: 84 / F Date of Service: 08/28/24 Loc: ED Accession Number: [id number] Procedure: MR head/brain wo con Ordering Provider: Ervin James MD PROCEDURE: MR HEAD/BRAIN WO CON INDICATIONS: Blurry vision TECHNIQUE: Non-contrast axial T1 spin echo, axial T2 fast spin echo, sagittal and axial FLAIR, coronal T2 fast spin echo, axial gradient echo, axial diffusion and ADC through the brain. COMPARISON: [facility], , MR HEAD/BRAIN WO CON, 05/16/2024, 10:19. FINDINGS: Image quality: Excellent. CSF spaces: Ventricles appear symmetric in size and shape. Basal cisterns are patent. No extra-axial fluid collections. Brain: No intracranial bleeds or mass effects. There is cerebral volume loss for age. There are periventricular and deep white matter chronic small vessel ischemic changes. Brainstem appears normal. Diffusion-weighted images show no acute infarct. No chronic ischemic insults. Normal intravascular flow voids are present. Stable susceptibility artifact within the right anterior basal ganglia. Skull and face: Calvarial bone marrow is normal in signal. Bilateral lens replacements. Otherwise, the orbits are unremarkable. Sinuses: Sinuses and mastoids are clear. IMPRESSION: No acute or subacute infarct. No acute intracranial abnormalities. Age-appropriate global volume loss and mild chronic microvascular ischemic changes. Dictated by: Ronaldo Curry M.D. on 08/28/2024 at 11:01 Approved by: Ronaldo Curry M.D. on 08/28/2024 at 11:04 [facility] Narrative Medical decision making narrative: Patient is sent here by Dr. Main from her office, ophthalmology for concerns of stroke TIA. Patient has had blurry cloudy vision in the left eye constant since August 08, 2024. Denies any eye pain. Fast exam is otherwise negative. Clear speech no facial droop no numbness tingling or weakness to the limbs. No prior history of stroke. Patient states she has had history of cataract surgery in the past. Patient did have her eyes dilated in the office with Dr. Main Ophthalmology this morning. After history and exam, CBC CMP EKG CT head CT angiogram head and neck MRI brain, given acuity/chronicity of symptoms. Ongoing for the past nearly 3 weeks. No neurology consult indicated at this time [facility] Medical records reviewed: Patient was recently seen for similar symptoms like this March of this year and March of this year at this hospital. Notes reviewed Differential considered: Includes but not limited to TIA stroke cataracts glaucoma retinal detachment ocular migraine migraine headache Lab Test results independently reviewed as above. Pertinent findings: WBC 6.4 hemoglobin 12.9 and sodium 138 potassium 4.2 BUN 23 creatinine 1.06 Independently reviewed EKG normal EKG normal sinus rhythm rate 64 Imaging studies independently reviewed: CT head CT angiogram head and neck MRI brain no acute finding Consultations: 12:[address] BOLTON, Neurology [facility]. CT angiogram finding not contributory to patient's symptoms. This is an old finding. Not new. Patient is on aspirin and Plavix. Patient allergic to statin drugs. Re-evaluations: 12:37 p.m.. Updated patient results. And my discussion with Neurology. [facility]. Images are reassuring. CT angiogram is not new finding. This is old. Not contributory to the patient's symptoms. She does get migraine headaches. She gets an aura with vision changes. However reviewed with her that this could be ocular migraine. She was supposed to see a neurologist in [place] but due to transportation she could not see them. I did review with her she can get a referral family family doctor to [facility]. She will make this arrangement. Return precautions reviewed. She desires discharge home. Left eye blurry vision has resolved. During course of stay. Patient is on aspirin and Plavix. Discussion: Appropriate for discharge home. Exam is reassuring. Return precautions reviewed with patient. Laboratory studies imaging studies neurology consult completed. Return precautions reviewed and patient desires discharge home. Left eye blurry vision has resolved. Diagnosis: Blurry vision Discharge Plan Departure Patient Disposition: Home Clinical Impression: Blurred vision, left eye Instructions: DI for Visual Field Disturbances Activity Restrictions/Additional Instructions: Your exam and a CT scan imaging and MRI of the brain are reassuring. Neurology services at [facility] was contacted and reviewed results. No stroke at this time. However continue your aspirin and Plavix at home. Please see your family doctor in a week for re-evaluation. Return if worse if any questions or concerns Prescriptions: No Action CYANOCOBALAMIN (VITAMIN B-12) (Vitamin B-12) 1,000 mcg PO QDAY Qty: 0 [CO Q 10] 1 tab PO QAM Qty: 0 [FISH OIL] 1 tab PO QAM Qty: 0 clopidogrel 75 mg Tablet 75 mg PO DAILY Qty: 20 0RF aspirin 81 mg Tablet,Delayed Release (Dr/Ec) 81 mg PO DAILY Qty: 30 3RF Referrals: Fransisca Chan PA-C [Primary Care Provider, Medical] Stand Alone Forms: Patient Portal/API
[2024-08-28 10:38] LABS: Add Manual Diff / Slide Review NO; Basophils Absolute Auto 0 /uL (0-100); Basophils Percent Auto 0.7 % (0-2); Eosinophils Absolute Auto 100 /uL (0-450); Eosinophils Percent Auto 1.7 % (2-4); Hemoglobin 12.9 g/dL (12.0-16.0); Lymphocytes Absolute Auto 1500 /uL (1100-4500); Lymphocytes Percent Auto 24.1 % (25-40); Mean Corpuscular HGB Conc 33.1 % (30-36); Mean Corpuscular Hemoglobin 32.2 PG (26-34); Mean Corpuscular Volume 97.4 fL (80-100); Monocytes Absolute Auto 500 /uL (0-900); Monocytes Percent Auto 8.6 % (3-14); Neutrophils Absolute Auto 4100 /uL (1500-7000); Neutrophils Percent Auto 64.9 % (50-75); Platelet Count 305 X10^3/uL (150-400); Red Cell Distribution Width 13.3 % (11.6-14.8); White Blood Cell Count 6.4 X10^3/uL (4.5-11.0)
[2024-08-28 10:44] LABS: Alanine Aminotransferase 18 IU/L (<35); Albumin 4.2 g/dL (3.5-5.0); Albumin Globulin Ratio 1.7 (1.0-2.8); Alkaline Phosphatase 59 U/L (38-126); Aspartate Aminotransferase 29 IU/L (14-36); BUN Creatinine Ratio 21.7 (6-22); Bilirubin Total 0.5 mg/dL (0.2-1.3); Blood Urea Nitrogen 23 mg/dL (7-17); Calcium 9.9 mg/dL (8.4-10.2); Carbon Dioxide 27 mmol/L (22-32); Chloride 104 mmol/L (98-107); Estimated Glomerular Filt Rate 52 mL/min (>60); Globulin 2.5 g/dL (1.7-4.1); Glucose 96 mg/dL (70-99); HEMOLYSIS < 15 (0-50); Potassium 4.2 mmol/L (3.4-5.1); Sodium 138 mmol/L (137-145); Total Protein 6.7 g/dL (6.3-8.2)
[2024-08-28] MEDS: SODIUM CHLORIDE 0.9% 500 ML 1000 ML IV (11:25)
== END 2024-08-28 12:53 | disposition home or self-care (01) ==
PROVIDERS: Emergency Provider Emergency Medicine; PCP Physician Assistant
DX: H53.8 Other visual disturbances (principal); Z79.01 Long term (current) use of anticoagulants
CPT/HCPCS: 36415; 70450; 70496; 70498; 70551; 80053; 85025; 93005; 93010; 96360; 99284; Q9967

== ENCOUNTER 2024-10-13 15:33 | Emergency (ER) | payer MEDICARE, SELFPAY ==
[2024-05-15 21:15] VITALS: BMI 31.3
[2024-10-13 15:34] VITALS: BP 167/93; PULSE 86; RESP 17; TEMP 37; O2SAT 96
--- NOTE | 2024-10-13 15:43 | DI.CT.S_ITS ---
PROCEDURE: CT ANGIO HEAD AND NECK INDICATIONS: stroke TECHNIQUE: After the administration of intravenous contrast, 1 mm thick sections acquired from the aortic arch through the [place] of [place]. 3-dimensional musnnjc-vrzdoikjk-cxpigrayts (MIP) and/or volume rendering reformats were acquired of the central intracranial vasculature and neck separately. For radiation dose reduction, the following was used: automated exposure control, adjustment of mA and/or kV according to patient size. COMPARISON: , CT, CT ANGIO HEAD AND NECK, 05/15/2024, 17:04. , CT, CT STROKE, 10/13/2024, 15:47. , CT, CT ANGIO HEAD AND NECK, 08/28/2024, 10:59. FINDINGS: Image quality: Limited by bolus timing, with venous contamination. There is artifact associated with the metallic hardware. Cerebral CT Angiogram: Internal carotid arteries: No acute findings. Intracranial ICA are patent with no significant stenosis. No occlusion. No aneurysm. Anterior cerebral arteries: Unremarkable. No significant stenosis. No occlusion. No aneurysm. Middle cerebral arteries: Unremarkable. No significant stenosis. No occlusion. No aneurysm. Posterior cerebral arteries: Unremarkable. No significant stenosis. No occlusion. No aneurysm. Basilar artery: Unremarkable. No significant stenosis. No occlusion. No aneurysm. Vertebral arteries: The right V4 segment is within normal limits. The left V4 segment largely terminates in the left posterior inferior cerebellar artery. Dural venous sinuses: Unremarkable given phase of enhancement. Other: Arterial phase appearance of the brain parenchyma is unremarkable. Neck CT Angiogram: Internal carotid arteries: Atherosclerotic irregularity and calcification can be seen involving the carotid bifurcation regions, with 50-60% narrowing seen involving the origin of the right intracranial internal carotid artery. There is 30% narrowing seen on the left. The more distal internal carotid arteries demonstrate normal course and caliber. Common carotid arteries: Unremarkable. No significant stenosis. No dissection or occlusion. External carotid arteries: Unremarkable. No occlusion. Vertebral arteries: The origins of the vertebral arteries both appear widely patent. There is an area high-grade stenosis again seen within the left V2 segment. The right vertebral artery is unremarkable. The right vertebral artery is dominant to the left. Aortic Arch and Mediastinum: Partially visualized aortic arch unremarkable without evidence of aneurysm. Origins of the great vessels unremarkable. Other: Arterial phase soft tissues of the neck and chest are unremarkable. At least moderate cervical spine degenerative change can be seen. IMPRESSION: No significant intracranial arterial abnormality is seen. Atherosclerotic irregularity and calcification can be seen involving the carotid bifurcation regions, with 50-60% narrowing on the right and 30% narrowing on the left. Stable high-grade stenosis within the left V2 segment. Small size of the left V4 segment. Any quantitative measurements of stenosis were performed using NASCET criteria. Dictated by: Dixon Andrade M.D. on 10/13/2024 at 15:14 Approved by: Dixon Andrade M.D. on 10/13/2024 at 15:18
--- NOTE | 2024-10-13 15:43 | DI.CT.S_ITS ---
PROCEDURE: CT STROKE INDICATIONS: stroke TECHNIQUE: Noncontrast 4.5 mm thick angled axial sections acquired from the foramen magnum to the vertex, with coronal reformats. For radiation dose reduction, the following was used: automated exposure control, adjustment of mA and/or kV according to patient size. COMPARISON: [facility], MR, MR HEAD/BRAIN WO CON, 08/28/2024, 10:19. [facility], CT, CT ANGIO HEAD AND NECK, 08/28/2024, 10:59. [facility], CT, CT HEAD/BRAIN WO CON, 08/28/2024, 10:59. FINDINGS: Image quality: Diagnostic. CSF spaces: Basal cisterns are patent. No extra-axial fluid collections. The ventricles are symmetric in size and shape. Brain: No intracranial bleeds or mass effect. There is cerebral volume loss, with resultant ventricular and sulcal prominence. There are periventricular and deep white matter chronic small vessel ischemic changes. There is intracranial internal carotid artery atherosclerosis. Symmetric calcification can be seen involving the basal ganglia, which is considered to be normal for age. Skull and face: Calvarium and visualized facial bones appear intact, without suspicious lesions. Sinuses: Visualized sinuses and mastoids are clear. IMPRESSION: No acute intracranial hemorrhage is seen. No acute intracranial pathology. Note: Case discussed by telephone with Dr. Salazar at 3:55 p.m. [place] time on October 13, 2024. This study fulfills neurological imaging criteria for inclusion or exclusion of acute stroke therapies based on available published neurological guidelines. Dictated by: Dixon Andrade M.D. on 10/13/2024 at 14:54 Approved by: Dixon Andrade M.D. on 10/13/2024 at 14:56
--- NOTE | 2024-10-13 15:44 | ED.NEUROSD ---
HPI - Neuro Symptoms/Deficit General Chief Complaint: Neuro Symptoms/Deficit Stated Complaint: confusion Time Seen by Provider: 10/13/24 15:43 Source: patient and EMS Mode of arrival: EMS History of Present Illness HPI Narrative: 82-year-old female with a history of TIA presents with difficulty with speech finding that occurred in the past 10 minutes. She denies any other focal neuro deficits. Upon physical examination, her NIH score is 0. Review of systems otherwise negative. On Anticoagulants: No Related Data Home Medications ?Medication ?Instructions ?Recorded ?Confirmed CYANOCOBALAMIN (VITAMIN B-12) 1,000 mcg PO QDAY ##0 03/16/11 05/15/24 (Vitamin B-12) [CO Q 10] 1 tab PO QAM ##0 05/05/16 05/15/24 [FISH OIL] 1 tab PO QAM ##0 05/05/16 05/15/24 Previous Rx's ?Medication ?Instructions ?Recorded aspirin 81 mg tablet,delayed 81 mg PO DAILY #30 tabs 05/17/24 release clopidogrel 75 mg tablet 75 mg PO DAILY #20 tabs 05/17/24 clopidogrel 75 mg tablet 75 mg PO DAILY #20 tabs 10/13/24 Allergies Allergy/AdvReac Type Severity Reaction Status Date / Time omeprazole (OMEPRAZOLE) Allergy Severe chest pain Verified 10/13/24 15:37 diclofenac (DICLOFENAC) Allergy Mild chest pain Verified 10/13/24 15:37 metoprolol (METOPROLOL) AdvReac Mild mentally Verified 10/13/24 15:37 disconnected niacin (NIACIN) AdvReac Mild headache Verified 10/13/24 15:37 NSAIDS (Non-Steroidal AdvReac Mild sensitivity Verified 10/13/24 15:37 Anti-Inflamma (NSAIDS (NON-STEROIDAL ANTI-INFLAMMA) pravastatin (PRAVASTATIN) AdvReac Mild leg Verified 10/13/24 15:37 pain/hematuria ranitidine (RANITIDINE) AdvReac Mild mental Verified 10/13/24 15:37 issues Review of Systems Review of Systems ROS Unobtainable: All systems reviewed & are unremarkable except as noted in HPI and below Hematologic/Lymphatic On Anticoagulants: No Patient History Medical History Hyperlipidemia Statin intolerance Smoker Vision abnormalities Muscle tightness Leg pain Right hip flexor tightness (~2014) Actinic keratosis (~2006) Chickenpox (~1946) Measles (~1946) Mumps (~1946) Vitreous detachment, bilateral Cataract (~2013) Microscopic hematuria Cold sensitivity Hyperlipidemia Blocked tear duct Maki's esophagus (~2004) Hx of migraines (~2012) History of anemia (~2010) Reactive airway disease Anxiety Asymptomatic microscopic hematuria Degenerative cervical disc Surgical History Anesthesia History of thumb surgery (~2009) History of endoscopy History of facelift History of cataract removal with insertion of prosthetic lens (~2013) History of cystoscopy Status post tubal ligation (~1984) Family History Brother Diabetes mellitus High cholesterol Father Diabetes mellitus High cholesterol Grandfather Heart disease Grandmother Cancer Mother Diabetes mellitus Mental health problem History of breast cancer Social History household members: none Tobacco: How many years used: 38 alcohol intake: never tobacco type: cigarettes alcohol intake frequency: 0-2 drinks per day Exam Narrative Exam Narrative: General: Patient appears to be in no acute distress, acting appropriately Head: normocephalic, atraumatic, HEENT: Pupils equal round reactive, eyes tracking well, neck supple, no JVD Heart: regular rate and rhythm, no murmurs, rubs, or gallops heard Lungs: clear to auscultation, no adventitious sounds Abdomen: soft , nontender, nondistended, positive bowel sounds Neurological: no focal neurological signs, moving all extremities well, alert and oriented x3, Psych: good judgment ,good insight, mood is normal. Initial Vital Signs Initial Vital Signs: Vital Signs Temperature 98.6 F 10/13/24 15:34 Pulse Rate 86 10/13/24 15:34 Respiratory Rate 17 10/13/24 15:34 Blood Pressure 167/93 H 10/13/24 15:34 Pulse Oximetry 96 10/13/24 15:34 Oxygen Delivery Method Room Air 10/13/24 15:34 Course Course Course Narrative: We will work the patient up for a stroke at this time. Orders Ordered: ED Orders 10/13/24 15:40 Complete Blood Count AUTO DIFF Stat Comprehensive Metabolic Panel Stat Ethanol (ETOH) Stat PTT Partial Thromboplastin Anthony Stat Prothrombin Time INR Stat Troponin & CK Cardiac Panel Stat 10/13/24 15:[address] angio head and neck Stat EKG-12 Lead Stat 10/13/24 16:00 Urinalysis and Microscopic Stat Urine Drug Screen, Rapid Stat 10/13/24 16:04 Chest [XR chest 1V] Stat 10/13/24 17:06 COVID19 -Nasal RAPID Stat Discontinued Medications Diphenhydramine HCl (Diphenhydramine 50 Mg/Ml Vial) 25 mg IV NOW ONE Stop: 10/13/24 16:04 Last Admin: 10/13/24 16:11 Dose: Not Given Documented By: BT Reevaluation(s) Reevaluation #1: Upon re-evaluation, patient is completely back at baseline as per the 1st initial physical exam Time: 17:00 Consultations Consultation #1: consulted stroke neurologist Dr. Shafer who suggested that the patient could be worked up as an outpatient due to the patient being completely back at her baseline. Vital Signs Vital signs: Vital Signs - 8 hr 10/13/24 15:34 10/13/24 16:51 10/13/24 16:52 Temperature 98.6 F Pulse Rate 86 71 72 Respiratory Rate 17 23 Blood Pressure 167/93 H Pulse Oximetry 96 99 98 Oxygen Delivery Method Room Air 10/13/24 16:52 10/13/24 17:00 10/13/24 17:00 Temperature Pulse Rate 73 Respiratory Rate 19 Blood Pressure 161/73 H 152/65 H Pulse Oximetry 97 Oxygen Delivery Method Room Air MDM - Neuro Symptoms/Deficit Differential Diagnosis Differential diagnosis: Likely peripheral neuropathy, cerebrovascular accident and transient cerebral ischemia Lab Data 10/13/24 15:40 10/13/24 15:40 Labs: Lab Results 10/13/24 10/13/24 10/13/24 Range/Units 15:40 15:43 16:00 WBC 6.1 (4.5-11.0) X10^3/uL RBC 4.14 (4.0-5.2) X10^6/uL Hgb 13.4 (12.0-16.0) g/dL Hct 40.1 (36-46) % MCV 96.7 (80-100) fL MCH 32.4 (26-34) PG MCHC 33.5 (30-36) % RDW 13.1 (11.6-14.8) % Plt Count 281 (150-400) X10^3/uL Neut % (Auto) 58.2 (50-75) % Lymph % (Auto) 28.7 (25-40) % [place] % (Auto) 10.4 (3-14) % Eos % (Auto) 1.9 L (2-4) % Baso % (Auto) 0.8 (0-2) % Neut # (Auto) 3600 (6556-7176) /uL Lymph # (Auto) 1800 (9170-2963) /uL [place] # (Auto) 600 (0-900) /uL Eos # (Auto) 100 (0-450) /uL Baso # (Auto) 0 (0-100) /uL PT 10.1 (9.4-12.5) SECONDS INR 0.9 (0.9-1.3) APTT 25 L (25.1-36.5) SECONDS Sodium 137 (137-145) mmol/L Potassium 4.6 (3.4-5.1) mmol/L Chloride 101 (98-107) mmol/L Carbon Dioxide 28 (22-32) mmol/L BUN 14 (7-17) mg/dL Creatinine 1.07 H (0.52-1.04) mg/dL Estimated GFR 52 L (>60) mL/min BUN/Creatinine Ratio 13.1 (6-22) Glucose 111 H (70-99) mg/dL POC Whole Bld Glucose 111 H (70-99) mg/dL Calcium 9.2 (8.4-10.2) mg/dL Total Bilirubin 0.3 (0.2-1.3) mg/dL AST 35 (14-36) IU/L ALT 20 (<35) IU/L Alkaline Phosphatase 68 (38-126) U/L Total Creatine Kinase 68 (30-135) U/L Troponin I < 0.012 (0.01-0.034) ng/mL Total Protein 7.3 (6.3-8.2) g/dL Albumin 4.4 (3.5-5.0) g/dL Globulin 2.9 (1.7-4.1) g/dL Albumin/Globulin Ratio 1.5 (1.0-2.8) Urine Color Yellow Urine Appearance Clear Urine pH 7.0 (4.5-8.0) Ur Specific [place] 1.010 (1.000-1.035) Urine Protein Negative (Negative) Urine Glucose (UA) Negative (Negative) g/dL Urine Ketones Negative (NEGATIVE) Urine Occult Blood Negative (Negative) Urine Nitrate Negative (Negative) Urine Bilirubin Negative (NEGATIVE) Urine Urobilinogen 0.2 (0.2) E.U./dL Ur Leukocyte Esterase Negative (NEGATIVE) Urine RBC None seen (0-5/HPF) Urine WBC None seen (0-5/HPF) Ur Squamous Epith Cells 0-1 /hpf (0-5/HPF) Urine Bacteria None seen (None) Ur Culture Indicated? Cult not indicated Vol Urine Centrifuged 10ml (spun) U Opiates 300ng/mL cut Negative (Negative) Ur Oxycodone Screen Negative (Negative) Urine Methadone Screen Negative (Negative) Ur Barbiturates Screen Negative (Negative) U Tricyclic Antidepress Negative (Negative) Ur Phencyclidine Scrn Negative (Negative) Ur Amphetamines Screen Negative (Negative) U Methamphetamines Scrn Negative (Negative) Ur MDMA Scrn (Ecstasy) Negative (Negative) U Benzodiazepines Scrn Negative (Negative) Urine Cocaine Screen Negative (Negative) U Marijuana (THC) Screen Negative (Negative) Urine Specific [place] (Normal) Ethyl Alcohol < 10 (<10) mg/dL Ur Creatinine (Normal) SARS-CoV-2 (PCR) (Negative) 10/13/24 10/13/24 Range/Units 16:00 17:06 WBC (4.5-11.0) X10^3/uL RBC (4.0-5.2) X10^6/uL Hgb (12.0-16.0) g/dL Hct (36-46) % MCV (80-100) fL MCH (26-34) PG MCHC (30-36) % RDW (11.6-14.8) % Plt Count (150-400) X10^3/uL Neut % (Auto) (50-75) % Lymph % (Auto) (25-40) % [place] % (Auto) (3-14) % Eos % (Auto) (2-4) % Baso % (Auto) (0-2) % Neut # (Auto) (6943-0938) /uL Lymph # (Auto) (8234-8561) /uL [place] # (Auto) (0-900) /uL Eos # (Auto) (0-450) /uL Baso # (Auto) (0-100) /uL PT (9.4-12.5) SECONDS INR (0.9-1.3) APTT (25.1-36.5) SECONDS Sodium (137-145) mmol/L Potassium (3.4-5.1) mmol/L Chloride (98-107) mmol/L Carbon Dioxide (22-32) mmol/L BUN (7-17) mg/dL Creatinine (0.52-1.04) mg/dL Estimated GFR (>60) mL/min BUN/Creatinine Ratio (6-22) Glucose (70-99) mg/dL POC Whole Bld Glucose (70-99) mg/dL Calcium (8.4-10.2) mg/dL Total Bilirubin (0.2-1.3) mg/dL AST (14-36) IU/L ALT (<35) IU/L Alkaline Phosphatase (38-126) U/L Total Creatine Kinase (30-135) U/L Troponin I (0.01-0.034) ng/mL Total Protein (6.3-8.2) g/dL Albumin (3.5-5.0) g/dL Globulin (1.7-4.1) g/dL Albumin/Globulin Ratio (1.0-2.8) Urine Color Urine Appearance Urine pH Normal (4.5-8.0) Ur Specific [place] (1.000-1.035) Urine Protein (Negative) Urine Glucose (UA) (Negative) g/dL Urine Ketones (NEGATIVE) Urine Occult Blood (Negative) Urine Nitrate (Negative) Urine Bilirubin (NEGATIVE) Urine Urobilinogen (0.2) E.U./dL Ur Leukocyte Esterase (NEGATIVE) Urine RBC (0-5/HPF) Urine WBC (0-5/HPF) Ur Squamous Epith Cells (0-5/HPF) Urine Bacteria (None) Ur Culture Indicated? Vol Urine Centrifuged U Opiates 300ng/mL cut (Negative) Ur Oxycodone Screen (Negative) Urine Methadone Screen (Negative) Ur Barbiturates Screen (Negative) U Tricyclic Antidepress (Negative) Ur Phencyclidine Scrn (Negative) Ur Amphetamines Screen (Negative) U Methamphetamines Scrn (Negative) Ur MDMA Scrn (Ecstasy) (Negative) U Benzodiazepines Scrn (Negative) Urine Cocaine Screen (Negative) U Marijuana (THC) Screen (Negative) Urine Specific [place] Normal (Normal) Ethyl Alcohol (<10) mg/dL Ur Creatinine Low (Normal) SARS-CoV-2 (PCR) Negative (Negative) Imaging Data CTA - brain/neck: Radiologist's Impression: No significant intracranial arterial abnormality is seen. Atherosclerotic irregularity and calcification can be seen involving the carotid bifurcation regions, with 50-60% narrowing on the right and 30% narrowing on the left. Stable high-grade stenosis within the left V2 segment. Small size of the left V4 segment. ct head showed following: No acute intracranial hemorrhage is seen. No acute intracranial pathology ECG Data Interpretation: EKG showed a normal axis, normal sinus rhythm, 79 beats per minute. Normal NC intervals, no STT wave changes. Previous EKG showed a normal sinus rhythm MDM Narrative Medical decision making narrative: After discussion with stroke neurologist, it is determined that patient can have a stroke workup done as an outpatient. Advised to come right back if having any new neurological symptoms. Discharge Plan Departure Patient Disposition: Home Clinical Impression: Brain TIA Instructions: DI for Transient Ischemic Attack Activity Restrictions/Additional Instructions: Follow up with neurologist as soon as possible. Get MRI of the brain as an outpatient as well as echocardiogram of the heart an ultrasound of the carotid arteries. Follow up with PCP for coordination. Come back sooner to ER if having new neurological symptoms Prescriptions: New clopidogrel 75 mg tablet 75 mg PO DAILY Qty: 20 0RF No Action CYANOCOBALAMIN (VITAMIN B-12) (Vitamin B-12) 1,000 mcg PO QDAY Qty: 0 [CO Q 10] 1 tab PO QAM Qty: 0 [FISH OIL] 1 tab PO QAM Qty: 0 clopidogrel 75 mg Tablet 75 mg PO DAILY Qty: 20 0RF aspirin 81 mg Tablet,Delayed Release (Dr/Ec) 81 mg PO DAILY Qty: 30 3RF Referrals: Fransisca Chan PA-C [Primary Care Provider, Medical] Stand Alone Forms: Patient Portal/API
[2024-10-13 15:50] LABS: Add Manual Diff / Slide Review NO; Hematocrit 40.1 % (36-46); Hemoglobin 13.4 g/dL (12.0-16.0); Lymphocytes Absolute Auto 1800 /uL (1100-4500); Mean Corpuscular HGB Conc 33.5 % (30-36); Mean Corpuscular Hemoglobin 32.4 PG (26-34); Mean Corpuscular Volume 96.7 fL (80-100); Platelet Count 281 X10^3/uL (150-400)
[2024-10-13 15:55] LABS: INR 0.9 (0.9-1.3); Prothrombin Time 10.1 SECONDS (9.4-12.5)
[2024-10-13 15:57] LABS: PTT Partial Thromboplastin Tim 25 SECONDS (25.1-36.5)
--- NOTE | 2024-10-13 15:58 | EKG_ITS ---
[place] [address] [place] [id number] Test Date: 2024-10-13 Pat Name: Barby Carvalho Department: [facility] Room: Gender: Female Display Trimmer: HIRA : [id number] Requested By: Order Number: [id number] Reading MD: Magnus Colon Measurements Intervals [place] Rate: 79 P: 47 CT: 146 QRS: 28 QRSD: 60 T: 39 QT: 352 QTc: 403 Interpretive Statements Normal sinus rhythm Nonspecific ST and T wave abnormality Electronically Signed On 10-20-2024 7:17:05 PDT by Magnus Colon
[2024-10-13 15:59] LABS: Alanine Aminotransferase 20 IU/L (<35); Albumin 4.4 g/dL (3.5-5.0); Alkaline Phosphatase 68 U/L (38-126); Calcium 9.2 mg/dL (8.4-10.2); Carbon Dioxide 28 mmol/L (22-32); Chloride 101 mmol/L (98-107); Creatine Kinase 68 U/L (30-135); Ethanol (ETOH) < 10 mg/dL (<10); Glucose 111 mg/dL (70-99); HEMOLYSIS 22 (0-50); Potassium 4.6 mmol/L (3.4-5.1); Sodium 137 mmol/L (137-145)
[2024-10-13 16:00] LABS: Albumin Globulin Ratio 1.5 (1.0-2.8); Blood Urea Nitrogen 14 mg/dL (7-17); Estimated Glomerular Filt Rate 52 mL/min (>60); Globulin 2.9 g/dL (1.7-4.1); Total Protein 7.3 g/dL (6.3-8.2)
--- NOTE | 2024-10-13 16:04 | DI.RAD.S_ITS ---
PROCEDURE: XR CHEST 1V INDICATIONS: chest tightness TECHNIQUE: One view of the chest was acquired. COMPARISON: [facility], CT, CT ANGIO HEAD AND NECK, 10/13/2024, 15:47. [facility], CT, CT STROKE, 10/13/2024, 15:47. [facility], CR, XR CHEST 1V, 05/15/2024, 15:39. FINDINGS: Surgical changes and devices: None. Lungs and pleura: An incomplete inspiratory result is noted, causing a crowded appearance to the lung markings. No focal infiltrates are seen. No pneumothorax or significant pleural effusions are seen. Mediastinum: Mediastinal contours appear normal. Heart size is normal. Atherosclerotic calcification of the aortic arch is noted. Bones and chest wall: No suspicious bony lesions. Overlying soft tissues appear unremarkable. IMPRESSION: Low lung volumes, without an acute abnormality seen by plain film. Dictated by: Dixon Andrade M.D. on 10/13/2024 at 15:39 Approved by: Dixon Andrade M.D. on 10/13/2024 at 15:40
[2024-10-13 16:11] LABS: Troponin I < 0.012 ng/mL (0.01-0.034)
--- NOTE | 2024-10-13 16:11 | PC.NURSE ---
patient complained of tightness in her chest and a funny feeling in her throat, dr flowers ordered a dose of benadryl, patient declined, states it was phlegm and that she cleared it.
[2024-10-13 16:16] LABS: Appearance Urine UA CLEAR; Bilirubin Urine UA NEGATIVE (NEGATIVE); Color Urine UA YELLOW; Glucose Urine UA NEGATIVE (Negative); Ketones Urine UA NEGATIVE (NEGATIVE); Leukocyte Esterase Urine UA NEGATIVE (NEGATIVE); Nitrite Urine UA NEGATIVE (Negative); Occult Blood Urine UA NEGATIVE (Negative); Protein Urine UA NEGATIVE (Negative); Specific Gravity Urine UA 1.010 (1.000-1.035); Urobilinogen Urine UA 0.2 E.U./dL (0.2)
[2024-10-13 16:18] LABS: UR Morphine/Opiate cutoff 300 Negative (Negative); Ur Specific Gravity Normal (Normal); Urine MDMA Negative (Negative); Urine Methamphetamines Negative (Negative); Urine Tetrahydrocannabinol Negative (Negative); Urine Tricyclic Antidepressant Negative (Negative)
[2024-10-13 16:24] LABS: pH Urine UA 7.0 (4.5-8.0)
[2024-10-13 16:29] LABS: Culture Indicated Urine Cult Not Indicated
[2024-10-13 16:51] VITALS: PULSE 71; RESP 23; O2SAT 99
[2024-10-13 16:52] VITALS: BP 161/73; PULSE 72; O2SAT 98
[2024-10-13 17:00] VITALS: BP 152/65; PULSE 73; RESP 19; O2SAT 97
[2024-10-13 17:29] LABS: COVID19 -Nasal RAPID Negative (Negative)
[2024-10-13 17:30] VITALS: BP 153/72; PULSE 74; RESP 23; O2SAT 98
[2024-10-13 18:00] VITALS: BP 156/71; PULSE 69; RESP 11; O2SAT 98
[2024-10-13] MEDS: CLOPIDOGREL 75 MG TABLET 300 MG PO (18:02)
== END 2024-10-13 18:15 | disposition home or self-care (01) ==
PROVIDERS: Emergency Provider Family Medicine; PCP Physician Assistant
DX: G45.9 Transient cerebral ischemic attack, unspecified (principal); Z86.73 Personal history of transient ischemic attack (TIA), and cerebral infarction without residual deficits; R29.700 NIHSS score 0
CPT/HCPCS: 36415; 70450; 70496; 70498; 71045; 80053; 80305; 80320; 81001; 82550; 82962; 84484; 85025; 85610; 85730; 87635; 93005; 99284; Q9967

== ENCOUNTER → 2025-01-25 08:35 | Outpatient (CLI) | payer MEDICARE, SELFPAY ==
[2024-05-15 21:15] VITALS: BMI 31.3
--- NOTE | 2025-01-25 08:39 | DI.RAD.S_ITS ---
PROCEDURE: XR LUMBAR SPINE MIN 4V INDICATIONS: low back pain, right lower limb pain TECHNIQUE: 7 views of the lumbar spine were acquired, including bilateral oblique views and flexion extension views. COMPARISON: [facility], MR, MR LUMBAR SPINE WO CON, 01/25/2025, 9:14. FINDINGS: Bones: 5 nonrib-bearing vertebrae are present, for counting purposes, there are diminutive ribs at T12. Stepwise adynamic retrolisthesis of T12-L2. Stepwise adynamic anterolisthesis of L4-S1. No vertebral body compression fractures. No suspicious bony lesions. Multilevel spondylosis reaches severe at T12-L1, L1-2, and L5-S1. Multilevel moderate facet arthrosis. Soft tissues: Overlying bowel gas pattern is normal. No suspicious soft tissue calcifications. Vascular calcifications. Oblique images: No pars defects. IMPRESSION: Five lumbar type vertebra vertebral bodies for counting purposes, there are diminutive ribs at T12. Stepwise grade 1 superior lumbar degenerative retrolisthesis and stepwise inferior lumbar degenerative anterolisthesis without dynamic instability on flexion extension views. No dynamic instability on flexion extension views. No pars defect. Dictated by: Chad Potter M.D. on 01/25/2025 at 10:54 Approved by: Chad Potter M.D. on 01/25/2025 at 10:59
--- NOTE | 2025-01-25 08:39 | DI.MRI.S_ITS ---
PROCEDURE: MR LUMBAR SPINE WO CON INDICATIONS: low back pain, right lower limb pain TECHNIQUE: Noncontrast sagittal T1 spin echo and T2 fast echo, sagittal STIR, and T2 fast spin echo through the lumbar spine. In cases with scoliosis, additional coronal T2 fast spin echo may be performed. COMPARISON: [facility], MR, MR LUMBAR SPINE WO CON, 10/09/2022, 11:21. FINDINGS: Image quality: Excellent. Alignment and Curvature: Similar mild retrolisthesis of T12 on L1 and L1 on L2. Mild anterolisthesis of L4 on L5. Bone Marrow: Degenerative endplate edema T12-L1 and L5-S1. Right greater than left facet edema at L4-L5. Marrow is of otherwise normal overall signal. No acute vertebral body compression fractures. Spinal Cord: Conus medullaris terminates at the L1 level. Visualized cord demonstrates normal signal and size. Paraspinous Soft Tissues: No paravertebral masses. T12-L1: Severe degenerative disc disease with disc osteophyte complex and facet and ligamentum flavum hypertrophy causing similar mild right and moderate left neural foraminal narrowing. No spinal canal stenosis. L1-L2: Severe degenerative disc disease with disc osteophyte complex and facet and ligamentum flavum hypertrophy. Similar moderate right and mild left neural foraminal stenosis. No spinal canal stenosis. L2-L3: Disc bulge and facet and ligamentum flavum hypertrophy causing similar mild spine put spinal canal stenosis common moderate right and mild to moderate left neural foraminal stenosis. L3-L4: Disc bulge and facet and ligamentum flavum hypertrophy causing similar mild to moderate spinal canal stenosis, mild right, and [id number] left neural foraminal stenosis. L4-L5: Disc bulge and severe facet arthropathy. Similar mild spinal canal and mild bilateral neural foraminal narrowing. L5-S1: Disc bulge and prominent facet arthropathy. Left paracentral annular fissure. Similar the moderate spinal canal stenosis and [id number] bilateral neural foraminal narrowing. IMPRESSION: Multilevel degenerative changes of the lumbar spine, not significantly changed since prior MR dated 10/09/2022. Multilevel canal and foraminal stenoses are detailed above. Dictated by: Terra Collins M.D. on 01/27/2025 at 14:25 Approved by: Terra Collins M.D. on 01/27/2025 at 14:40
== END ==
LOC: MRI 08:38
PROVIDERS: PCP Family Medicine; Referring Provider Family Medicine; Visit Provider Physical Medicine & Rehabilitation
DX: M48.061 Spinal stenosis, lumbar region without neurogenic claudication (principal); M47.816 Spondylosis without myelopathy or radiculopathy, lumbar region; M47.817 Spondylosis without myelopathy or radiculopathy, lumbosacral region; M43.16 Spondylolisthesis, lumbar region; M43.17 Spondylolisthesis, lumbosacral region; Q76.6 Other congenital malformations of ribs
CPT/HCPCS: 72110; 72114; 72148